=== PATIENT | male | born 1945 | race Caucasian/White ===

== ENCOUNTER 2016-07-22 08:36 | Observation (INO) | payer BC, MEDICARE ==
[2016-07-22] MEDS ORDERED: NITROGLYCERIN OINT 1 INCH/GM PACKET TOPICAL STA (09:05)
--- NOTE | 2016-07-22 09:09 | ED ---
General Adult HPI - General Chief complaint: Chest Pain Stated complaint: leg swollen Time Seen by Provider: 07/22/16 08:40 Source: patient, RN notes reviewed Mode of arrival: wheelchair Limitations: no limitations - History of Present Illness Initial comments: This is a 70-year-old male who presents to the emergency department complaining of chest pressure starting at 4 AM. Patient states the pressure has come and gone multiple times today and currently it is not there. Patient states the pain radiates straight to his back. Patient denies any difficulty breathing but he stated he was nauseous with the pain. Patient denies any shortness of breath. Patient denies any recent fever chills or cough. Patient states he does have high cholesterol but does not have diabetes or high blood pressure. Patient states he has never been a smoker. Patient states he also has had a leg is swollen on the left and his been ongoing for about a week states he had an ultrasound earlier in the week and it was not a DVT however the swelling remains. Patient states he has no history of unilateral swelling like this. Patient denies any injury to the leg. Patient denies any cuts or wounds to light. Patient denies any abdominal pain patient denies vomiting or diarrhea - Related Data Home Medications Medication Instructions Recorded Confirmed Acetaminophen [Tylenol] 325 - 650 mg PO HS PRN 07/22/16 07/22/16 Aspirin EC [Ecotrin Low Dose] 81 mg PO HS 07/22/16 07/22/16 Atorvastatin Calcium [Lipitor] 10 mg PO DAILY 07/22/16 07/22/16 Enalapril Maleate [Vasotec] 2.5 mg PO DAILY 07/22/16 07/22/16 [place]-3 Fatty Acids [[place]-3] 1,000 mg PO BID 07/22/16 07/22/16 Allergies Allergy/AdvReac Type Severity Reaction Status Date / Time Penicillins AdvReac Unknown Verified 07/22/16 10:09 Review of Systems ROS Statement: Those systems with pertinent positive or pertinent negative responses have been documented in the HPI. ROS Other: All systems not noted in ROS Statement are negative. Past Medical History Past Medical History: No Reported History, Hyperlipidemia, Hypertension History of Any Multi-Drug Resistant Organisms: None Reported Past Surgical History: Heart Catheterization With Stent Additional Past Surgical History / Comment(s): cardiac surg Past Psychological History: No Psychological Hx Reported Smoking Status: Former smoker Past Alcohol Use History: None Reported Past Drug Use History: None Reported General Exam - General Exam Comments Initial Comments: GENERAL: Patient is well-developed and well-nourished. Patient is nontoxic and well- hydrated and is in mild distress. ENT: Neck is soft and supple. No significant lymphadenopathy is noted. Oropharynx is clear. Moist mucous membranes. Neck has full range of motion without eliciting any pain. EYES: The sclera were anicteric and conjunctiva were pink and moist. Extraocular movements were intact and pupils were equal round and reactive to light. Eyelids were unremarkable. PULMONARY: Unlabored respirations. Good breath sounds bilaterally. No audible rales rhonchi or wheezing was noted. CARDIOVASCULAR: There is a regular rate and rhythm without any murmurs gallops or rubs. ABDOMEN: Soft and nontender with normal bowel sounds. No palpable organomegaly was noted. There is no palpable pulsatile mass. SKIN: Skin is clear with no lesions or rashes and otherwise unremarkable. NEUROLOGIC: Patient is alert and oriented x3. Cranial nerves II through XII are grossly intact. Motor and sensory are also intact. Normal speech, volume and content. Symmetrical smile. MUSCULOSKELETAL: Normal extremities with adequate strength and full range of motion. The left leg from the knee down to the ankle is swollen and calf is tender. LYMPHATICS: No significant lymphadenopathy is noted PSYCHIATRIC: Normal psychiatric evaluation. Normal interpersonal interactions appears functionally intact in deals appropriately with others. No signs of depression. No signs of anxiety. Limitations: no limitations Course Vital Signs 07/22/16 07/22/16 07/22/16 08:38 09:11 10:16 Temperature 98.1 F Pulse Rate 56 L 52 L 54 L Respiratory 18 18 Rate Blood Pressure 181/87 151/68 125/60 O2 Sat by Pulse 99 98 94 L Oximetry Medical Decision Making - Medical Decision Making EKG shows sinus bradycardia 55 bpm. It was 132 QRS 106 QT interval 434 QTC is 4 :15 per patient's EKG shows no ST segment elevation or depression except there is some Q waves in leads 2 and aVF on the old EKG shows Q waves were there before Chest x-ray shows no acute amount. Ultrasound showed no DVT. Computed tomography scan of the chest showed no pulmonary embolus. Patient has been having intermittent pain along with his age high cholesterol I determined that the patient had unstable angina/started the patient hyper I admitted the patient I spoke with Dr. Alvarado he agreed to accept the admission I consult cardiology I continued the heparin Nitropaste and aspirin on the floor. - Lab Data Result diagrams: 07/22/16 09:03 07/22/16 09:03 Lab Results 07/22/16 07/22/16 07/22/16 Range/Units 09:03 09:03 09:03 WBC 8.7 (3.8-10.6) k/uL RBC 5.26 (4.30-5.90) m/uL Hgb 16.4 (13.0-17.5) gm/dL Hct 47.3 (39.0-53.0) % MCV 89.9 (80.0-100.0) fL MCH 31.3 (25.0-35.0) pg MCHC 34.8 (31.0-37.0) g/dL RDW 13.5 (11.5-15.5) % Plt Count 188 (150-450) k/uL Neutrophils % 65 % Lymphocytes % 25 % Monocytes % 5 % Eosinophils % 2 % Basophils % 1 % Neutrophils # 5.7 (1.3-7.7) k/uL Lymphocytes # 2.1 (1.0-4.8) k/uL Monocytes # 0.5 (0-1.0) k/uL Eosinophils # 0.2 (0-0.7) k/uL Basophils # 0.1 (0-0.2) k/uL PT (9.0-12.0) sec INR (<1.1) APTT (22.0-30.0) sec D-Dimer (<0.60) mg/L FEU Sodium 141 (137-145) mmol/L Potassium 4.0 (3.5-5.1) mmol/L Chloride 104 (98-107) mmol/L Carbon Dioxide 26 (22-30) mmol/L Anion Gap 11 mmol/L BUN 20 (9-20) mg/dL Creatinine 0.75 (0.66-1.25) mg/dL Est GFR (MDRD) Af Amer >60 (>60 ml/min/1.73 sqM) Est GFR (MDRD) Non-Af >60 (>60 ml/min/1.73 sqM) Glucose 115 H (74-99) mg/dL Calcium 9.2 (8.4-10.2) mg/dL Magnesium 2.0 (1.6-2.3) mg/dL Total Bilirubin 0.8 (0.2-1.3) mg/dL AST 26 (17-59) U/L ALT 33 (21-72) U/L Alkaline Phosphatase 93 (38-126) U/L Total Creatine Kinase 88 (55-170) U/L CK-MB (CK-2) 0.8 (0.0-2.4) ng/mL CK-MB (CK-2) Rel Index 0.9 Troponin I <0.012 (0.000-0.034) ng/mL NT-Pro-B Natriuret Pep pg/mL Total Protein 7.5 (6.3-8.2) g/dL Albumin 4.6 (3.5-5.0) g/dL 07/22/16 07/22/16 Range/Units 09:03 09:03 WBC (3.8-10.6) k/uL RBC (4.30-5.90) m/uL Hgb (13.0-17.5) gm/dL Hct (39.0-53.0) % MCV (80.0-100.0) fL MCH (25.0-35.0) pg MCHC (31.0-37.0) g/dL RDW (11.5-15.5) % Plt Count (150-450) k/uL Neutrophils % % Lymphocytes % % Monocytes % % Eosinophils % % Basophils % % Neutrophils # (1.3-7.7) k/uL Lymphocytes # (1.0-4.8) k/uL Monocytes # (0-1.0) k/uL Eosinophils # (0-0.7) k/uL Basophils # (0-0.2) k/uL PT 11.0 (9.0-12.0) sec INR 1.1 (<1.1) APTT 24.1 (22.0-30.0) sec D-Dimer 1.16 H (<0.60) mg/L FEU Sodium (137-145) mmol/L Potassium (3.5-5.1) mmol/L Chloride (98-107) mmol/L Carbon Dioxide (22-30) mmol/L Anion Gap mmol/L BUN (9-20) mg/dL Creatinine (0.66-1.25) mg/dL Est GFR (MDRD) Af Amer (>60 ml/min/1.73 sqM) Est GFR (MDRD) Non-Af (>60 ml/min/1.73 sqM) Glucose (74-99) mg/dL Calcium (8.4-10.2) mg/dL Magnesium (1.6-2.3) mg/dL Total Bilirubin (0.2-1.3) mg/dL AST (17-59) U/L ALT (21-72) U/L Alkaline Phosphatase (38-126) U/L Total Creatine Kinase (55-170) U/L CK-MB (CK-2) (0.0-2.4) ng/mL CK-MB (CK-2) Rel Index Troponin I (0.000-0.034) ng/mL NT-Pro-B Natriuret Pep 31 pg/mL Total Protein (6.3-8.2) g/dL Albumin (3.5-5.0) g/dL Disposition Clinical Impression: Unstable angina pectoris Disposition: ADMITTED IP TO THIS [facility] Time of Disposition: 11:13
[2016-07-22 09:23] LABS: Basophils # (A) 0.1 k/uL (0-0.2); Basophils % (A) 1 %; CH 31.8; CHCM 35.5; Eosinophils # (A) 0.2 k/uL (0-0.7); Eosinophils % (A) 2 %; HCT 47.3 % (39.0-53.0); HDW 3.14; HGB 16.4 gm/dL (13.0-17.5); Luc # (Auto) 0.17; Luc % (Auto) 2; Lymphocytes # (A) 2.1 k/uL (1.0-4.8); Lymphocytes % (A) 25 %; MCH 31.3 pg (25.0-35.0); MCHC 34.8 g/dL (31.0-37.0); MCV 89.9 fL (80.0-100.0); Mean Platelet Volume 7.3; Monocytes # (A) 0.5 k/uL (0-1.0); Monocytes % (A) 5 %; Neutrophils # (A) 5.7 k/uL (1.3-7.7); Neutrophils % (A) 65 %; RBC 5.26 m/uL (4.30-5.90); RDW 13.5 % (11.5-15.5); WBC 8.7 k/uL (3.8-10.6); WBC (Perox) 8.56
--- NOTE | 2016-07-22 09:24 | XR ---
EXAMINATION TYPE: XR chest 2V DATE OF EXAM: 07/22/2016 9:21 AM COMPARISON: 05/23/2013 TECHNIQUE: PA and lateral views submitted. HISTORY: Chest pain FINDINGS: The lungs are clear and there is no pneumothorax, pleural effusion, or focal pneumonia. Postsurgica l change overlying the cervical spine. Hyperinflation suggests COPD. Arthropathy of the shoulders seen. Previous surgery involving the heart noted. Pulmonary arteries are prominent correlate for pulmonary arterial hypertension. IMPRESSION: 1. No acute process.
[2016-07-22 09:34] LABS: ALT 33 U/L (21-72); AST 26 U/L (17-59); Alkaline Phosphatase 93 U/L (38-126); Anion Gap 11 mmol/L; Blood Urea Nitrogen 20 mg/dL (9-20); Calcium 9.2 mg/dL (8.4-10.2); Carbon Dioxide 26 mmol/L (22-30); Chloride 104 mmol/L (98-107); Glucose 115 mg/dL (74-99); Non-African American GFR(MDRD) >60 (>60 ml/min/1.73 sqM); Sodium 141 mmol/L (137-145); Total Bilirubin 0.8 mg/dL (0.2-1.3); Total Protein 7.5 g/dL (6.3-8.2)
[2016-07-22 09:42] LABS: INR 1.1 (<1.1); Partial Thromboplastin Time 24.1 sec (22.0-30.0)
[2016-07-22 09:45] LABS: Creatine Kinase 88 U/L (55-170)
[2016-07-22 09:57] LABS: Creatine Kinase MB 0.8 ng/mL (0.0-2.4); Troponin I <0.012 ng/mL (0.000-0.034)
--- NOTE | 2016-07-22 10:13 | US ---
EXAMINATION TYPE: US venous doppler duplex LE LT DATE OF EXAM: 07/22/2016 9:59 AM COMPARISON: NONE CLINICAL HISTORY: Pain. Pain, edema left lower leg x 2 weeks. Left knee replacement 2015 SIDE PERFORMED: Left VESSELS IMAGED: External Iliac Vein (EIV) Common Femoral Vein Deep Femoral Vein Greater Saphenous Vein * Femoral Vein Popliteal Vein Small Saphenous Vein * Proximal Calf Veins (* superficial vessels) Findings: NO evidence of DVT. Complex area left popliteal fossa = 4.8 x 1.6 x 2.8cm, possible Denise's cyst. Anechoic area left medial upper calf = 4.1 x 1.8 x 2.0cm, complex area superior to anechoic a tiana = 4.1 x 1.7 x 2.7cm IMPRESSION: 1. No evidence of DVT 2. Complex area popliteal fossa measuring 4.8 cm is not compatible with simple cyst. Recommend follow -up MRI. 3. Additional simple appearing popliteal fossa cyst measuring 4.1 cm.
[2016-07-22] MEDS ORDERED: RX INFO: IV CONTRAST WAS GIVEN 1 EACH MISC MISCELLANE PRN (10:17)
--- NOTE | 2016-07-22 10:52 | CT ---
EXAMINATION TYPE: CT chest angio for PE DATE OF EXAM: 07/22/2016 10:45 AM COMPARISON: NONE HISTORY: Lt leg red and swollen CT DLP: 582 mGycm CONTRAST: CT chest with contrast and 3D reconstruction with MIP imaging is performed with IV Contrast, patient injected with 84 mL of Omnipaque 350. Contrast-enhanced CT of the chest was performed through the course of the pulmonary arteries with angelita g and mediastinal window settings submitted. 3D reconstruction with MIP imaging was also performed. PULMONARY ARTERIES: The pulmonary arteries and their major tributaries are patent. I do not see lc dence for sizable filling defect to suggest pulmonary embolic process. LUNGS: The lungs are clear and free of infiltrate. Mild dependent basilar atelectasis. No pulmonary n odule or mass is detected. No pleural effusion. MEDIASTINUM: Thoracic aorta is of normal caliber . The heart is mildly enlarged. No evidence for me diastinal mass. No mediastinal lymph nodes greater than 1cm. HILAR STRUCTURES: No evidence for mass. No hilar lymph nodes greater than 1 cm. UPPER ABDOMEN: No significant abnormality is seen. IMPRESSION: 1. No evidence for Pulmonary embolism at this time.
[2016-07-22] MEDS ORDERED: NITROGLYCERIN SL TABS 0.4 MG TAB SUBLINGUAL PRN (11:13)
[2016-07-22] MEDS ORDERED: HEPARIN SODIUM,PORCINE 5,000 UNIT/ML 1 ML VIAL IV ONE (11:13)
[2016-07-22] MEDS ORDERED: SODIUM CHLORIDE 0.9% 1,000 ML IV SCH (11:45)
[2016-07-22] MEDS: HEPARIN SODIUM,PORCINE/D5W PMX 25,000 UNIT in DEXTROSE/WATER 1 500ML.BAG IV SCH ×2 (11:48→18:19)
[2016-07-22] MEDS ORDERED: NITROGLYCERIN OINT 1 INCH/GM PACKET TOPICAL SCH (13:00)
[2016-07-22 15:50] LABS: Creatine Kinase 61 U/L (55-170)
[2016-07-22 16:03] LABS: Creatine Kinase MB 0.5 ng/mL (0.0-2.4); Troponin I <0.012 ng/mL (0.000-0.034)
--- NOTE | 2016-07-22 16:10 | P.HPIM ---
History of Present Illness H&P Date: 07/22/16 Chief Complaint: Tightness in the chest 70-year-old gentleman with history of CAD status post PCI by Dr. TITUS Small in 2005 comes in to the hospital with an episode this a.m. where the patient felt like he was generally weak and noted some tightness in his chest episode lasted a few minutes however it was concerning with the tightness was in the midsternal region no radiation was reported. Patient's other main issue has been tenderness in his lower extremity on the left side for the last 2 weeks. Initially started to note a cyst on the back of his knee thereafter has severe pain in the lower extremity patient had a DVT study which was negative. Thereafter the pain improved however there is some swelling in that region. Patient was evaluated in the ER a CT angiogram was done to rule out a pulmonary embolism which was negative and another DVT study of the left lower extremity was done which was also negative. However a complex cyst was reported and further imaging study was recommended. Currently denies having any chest pain, difficulty breathing, nausea, vomiting, diarrhea, urinary urgency or frequency at this time. EKG was evaluated there is some T-wave inversions. Patient stated that he had echocardiogram and a stress test that was done in October 2015 which was negative. Review of Systems All systems: negative (Noted in HPI) Past Medical History Past Medical History: Coronary Artery Disease (CAD), Chest Pain / Angina, Hyperlipidemia, Osteoarthritis (OA) Additional Past Medical History / Comment(s): Ischemic heart disease, stress test 10/2015 which pt states was normal, pt denies HTN-states he is on vasotec/ metoprolol due to CAD and started on them after stenting, L cataract, DJD. History of Any Multi-Drug Resistant Organisms: None Reported Past Surgical History: Heart Catheterization With Stent, Hernia Repair, Joint Replacement Additional Past Surgical History / Comment(s): PCI with stenting in 2008, ASD closure done at [facility], bilateral total knees, CRISSY, umbilical and bilateral inguinal hernia repairs, colonoscopy with benign polypectomy, R cataract removed. Past Anesthesia/Blood Transfusion Reactions: No Reported Reaction, Motion Sickness Additional Past Anesthesia/Blood Transfusion Reaction / Comment(s): Pt has motion sickness only on a boat which isn't moving. Date of Last Stent Placement:: 2008 Past Psychological History: No Psychological Hx Reported Additional Psychological History / Comment(s): Pt resides with his spouse. He is independent. Smoking Status: Former smoker Past Alcohol Use History: None Reported Additional Past Alcohol Use History / Comment(s): Pt started smoking in 1965 and quit in 1975. Past Drug Use History: None Reported - Past Family History Father Family Medical History: No Reported History Additional Family Medical History / Comment(s): Father at the age of 79yrs of "natural causes." Mother Family Medical History: Cancer Additional Family Medical History / Comment(s): Mother of ovarian cancer at the age of 43yrs. Medications and Allergies Home Medications Medication Instructions Recorded Confirmed Type Acetaminophen [Tylenol] 325 - 650 mg PO HS PRN 07/22/16 07/22/16 History Aspirin EC [Ecotrin Low Dose] 81 mg PO HS 07/22/16 07/22/16 History Atorvastatin Calcium [Lipitor] 10 mg PO DAILY 07/22/16 07/22/16 History Enalapril Maleate [Vasotec] 2.5 mg PO DAILY 07/22/16 07/22/16 History Metoprolol Tartrate [Lopressor] 25 mg PO BID 07/22/16 07/22/16 History [place]-3 Fatty Acids [[place]-3] 1,000 mg PO BID 07/22/16 07/22/16 History Allergies Allergy/AdvReac Type Severity Reaction Status Date / Time Penicillins AdvReac Unknown Verified 07/22/16 10:09 Physical Exam Vitals: Vital Signs Temp Pulse Pulse Resp BP BP Pulse Ox 07/22/16 12:00 98.4 F 56 L 16 122/57 96 07/22/16 11:46 98 F 49 L 16 115/54 97 Intake and Output 07/22/16 07/22/16 07/22/16 06:59 14:59 22:59 Intake Total 118 Balance 118 Intake: Oral 118 Physical exam Gen. appearance oriented 3 in no distress Neck is supple no JVD Lungs good air entry clear to auscultation no rhonchi or wheezing Heart S1-S2 heard regular rate and rhythm no murmurs appreciated Abdomen is soft nontender no organomegaly bowel sounds are intact Neurologically cranial nerves II-12 grossly intact no focal motor or sensory deficits noted Skin no abnormalities appreciated Left lower extremity there is 1+ pitting edema below the knee there is a cyst that is noted in the popliteal fossa however there is also edema in the Gastronemius muscle area. Results CBC & Chem 7: 07/22/16 09:03 07/22/16 09:03 Thrombosis Risk Factor Assmnt - Choose All That Apply Any of the Below Risk Factors Present?: Yes Each Factor Represents 1 point: Obesity (BMI >25) Other Risk Factors: Yes Each Risk Factor Represents 2 Points: Age 61-74 years Other congenital or acquired thrombophilia - If yes, enter type in comment: No Thrombosis Risk Factor Assessment Total Risk Factor Score: 3 Thrombosis Risk Factor Assessment Level: Moderate Risk Assessment and Plan Plan: #1 atypical chest pain in a patient with CAD rule out ACS #2 history of hypertension. #3 osteoarthritis status post bilateral knee replacements #4 ruptured Denise's cyst on the left side Plan We'll obtain a computed tomography scan of the left lower extremity without contrast to rule out the anechoic finding noted on ultrasound, likely a ruptured Denise's cyst. Patient is not a candidate for MRI Serial troponins. Rule out ACS Cardiology consultation. FRANCIS inhibitor and beta joy was started. Patient is on aspirin.
--- NOTE | 2016-07-22 16:51 | CT ---
EXAMINATION TYPE: CT lower extremity LT wo con DATE OF EXAM: 07/22/2016 4:45 PM COMPARISON: Ultrasound dated 07/22/2016 HISTORY: Left sided knee and calf pain CT DLP: 470.1 mGycm Automated exposure control for dose reduction was used. Unenhanced CT of the left knee was performed. FINDINGS: There is total knee arthroplasty resulting in neck stents of streak artifact limiting evaluation. I d o not see evidence for fracture at this time. Medial cystic structure is noted measuring approximatel y 5.4 x 2.2 cm with the increased attenuation at its dependent portion which may reflect internal com plex fluid or hemorrhagic component. Popliteal fossa cyst described on the ultrasound is not visualiz ed given extensive streak artifact. IMPRESSION: Medial cystic structure is noted measuring approximately 5.4 x 2.2 cm with the increased attenuation at its dependent portion which may reflect internal complex fluid or hemorrhagic component.
[2016-07-22] MEDS: METOPROLOL TARTRATE 25 MG TAB PO SCH (20:26)
--- NOTE | 2016-07-22 20:45 | CONS ---
DATE OF CONSULTATION: Mr. Baldwin is a 70-year-old male with a history of coronary artery disease, status post stenting of the LAD [place] [address] Basilio Small. He underwent repeat cardiac catheterization in 2013 that revealed no evidence of significant obstructive disease. He has prior closure of his ASD. Over the last 2 weeks he has had edema in the left lower extremity that is not getting better. It is not associated with any dyspnea. Today he got anxious about it, had some tightness in the chest and came into the emergency room. Up to the time he had the problem, he had been walking on the treadmill on a daily basis without any difficulty. He denies any dizziness or palpitation. He denies any PND, orthopnea. No syncope. His coronary risk factors are negative for smoking. He is hypertensive and hyperlipidemic. His medications include: 1. Metoprolol tartrate 25 mg twice a day. 2. Aspirin. 3. Enalapril 2.5 mg daily. 4. Lipitor 10 mg daily. REVIEW OF SYSTEMS: RESPIRATORY SYSTEM: He has mild dyspnea on exertion. No wheezing. No cough. GI SYSTEM: No recent GI bleeding. No peptic ulcer disease. SYSTEM: No dysuria or hematuria. NERVOUS SYSTEM: No stroke or seizure. He denies any injury to the left leg. He was diagnosed with Denise's cyst. PHYSICAL EXAMINATION: He is a 70-year-old male, alert, oriented, in no apparent distress. Blood pressure 122/50 with a heart rate in the 50s. Afebrile. HEAD: Normocephalic. EYES: Sclerae anicteric. NECK: Good carotid upstroke. No bruit. No jugular venous distention. LUNGS: Clear to auscultation. HEART: Regular rate and rhythm. S1, S2. No S3. No rub. With a systolic murmur. ABDOMEN: Soft, nontender. EXTREMITIES: With mild erythema on the left lower extremity and +1 edema. No edema on the right side. Lab data revealed troponin less than 0.012. NT-proBNP of 31. BUN and creatinine of 20 and 0.75. D-dimer of 1.16. Hemoglobin 16.4, white blood cells 8.7. EKG revealed a sinus mechanism, normal axis; cannot exclude inferior myocardial infarction with Q waves in lead III. Duplex scan of the lower extremities revealed no evidence of DVT, with evidence of popliteal fossa with a simple cyst. CT angiogram of the chest showed no evidence of pulmonary embolism. Chest x-ray shows no acute infiltrate. IMPRESSION: 1. Symptoms of left lower extremity edema; could be cellulitis or related to the popliteal cyst. 2. History of coronary artery disease, stable. 3. Chest discomfort, atypical for ischemic heart disease. RECOMMENDATION: Patient has undergone full cardiac workup recently, according to him. I will obtain the records from the office. He has been seen by Dr. Basilio Small. If his enzymes are negative, his heparin will be stopped. He may require antibiotic treatment or further evaluation by Orthopedics Service regarding his popliteal cyst. I will defer to the primary care physician in that regard. Thank you for this consult. Will follow with you.
[2016-07-22] MEDS ORDERED: NON-FORMULARY DRUG (Omega-3 Fatty Acids [Omega-3] 1,000 MG) PO SCH (21:00)
[2016-07-22] MEDS ORDERED: ASPIRIN 81 MG CHEW PO SCH (21:00)
[2016-07-22 21:31] LABS: Creatine Kinase 61 U/L (55-170)
[2016-07-22 21:40] LABS: Creatine Kinase MB 0.5 ng/mL (0.0-2.4); Troponin I <0.012 ng/mL (0.000-0.034)
[2016-07-23 02:41] LABS: Cholesterol 161 mg/dL (<200); HDL Cholesterol 35 mg/dL (40-60); Triglycerides 224 mg/dL (<150)
[2016-07-23] MEDS: METOPROLOL TARTRATE 25 MG TAB PO SCH (08:30)
--- NOTE | 2016-07-23 08:54 | PN ---
Mr. Baldwin is a 70-year-old male who presented with left leg edema and discomfort. He was diagnosed with possible ruptured Denise's cyst. He is feeling well today. He has no chest pain. His edema is better. He denies any dizziness or palpitation. He denies any nausea. He continues to be on Lipitor 10 mg daily, aspirin once a day, lisinopril 5 mg daily, metoprolol tartrate 25 mg twice a day. PHYSICAL EXAMINATION: Blood pressure 146/60 with the heart rate in the 50s. LUNGS: Clear. HEART: Regular rate and rhythm. S1 and S2, no S3, no rub. ABDOMEN: Soft, nontender. EXTREMITIES: With decreased edema on the left side with mild erythema and warmness. Lab data revealed troponin less than 0.012 for 3 samples. IMPRESSION: 1. Probable ruptured Bakers cyst on the left side. 2. History of coronary artery disease. 3. Hyperlipidemia. 4. Hypertension. RECOMMENDATIONS: From the cardiac standpoint, he is stable, no further cardiac workup will be needed.
[2016-07-23] MEDS ORDERED: ATORVASTATIN 10 MG TAB PO SCH (09:00)
[2016-07-23] MEDS ORDERED: ASPIRIN 325 MG TAB PO SCH (09:00)
[2016-07-23] MEDS ORDERED: LISINOPRIL 5 MG TAB PO SCH (09:00)
[2016-07-23 11:14] VITALS: BP 149/71; TEMP 97.7
[2016-07-23 11:50] VITALS: PULSE 62; RESP 18
--- NOTE | 2016-07-23 15:14 | P.DS ---
Providers Date of admission: 07/22/16 11:13 Attending physician: Prabhakar Alvarado Primary care physician: Fabaina [facility] Course: 70-year-old gentleman with history of CAD status post PCI by Dr. TITUS Small in 2005 comes in to the hospital with an episode this a.m. where the patient felt like he was generally weak and noted some tightness in his chest episode lasted a few minutes however it was concerning with the tightness was in the midsternal region no radiation was reported. Patient's other main issue has been tenderness in his lower extremity on the left side for the last 2 weeks. Initially started to note a cyst on the back of his knee thereafter has severe pain in the lower extremity patient had a DVT study which was negative. Thereafter the pain improved however there is some swelling in that region. Patient was evaluated in the ER a CT angiogram was done to rule out a pulmonary embolism which was negative and another DVT study of the left lower extremity was done which was also negative. However a complex cyst was reported and further imaging study was recommended. Currently denies having any chest pain, difficulty breathing, nausea, vomiting, diarrhea, urinary urgency or frequency at this time. EKG was evaluated there is some T-wave inversions. Patient stated that he had echocardiogram and a stress test that was done in October 2015 which was negative. 07/23/2016 At the time of discharge patient denied having any chest pain. He does state to have some discomfort in his left lower extremity however ultrasound 2 was negative for DVT. I did obtain a computed tomography scan of the left lower extremity to evaluate a complex fluid collection. Appears to be old blood patient does not have any systemic signs of an infection. Hence patient is recommended to ambulate normally without any activity restrictions. It'll likely is a ruptured cyst with fluid tracking down his posterior compartment of his lower extremity Physical exam Gen. appearance oriented 3 in no distress Neck is supple no JVD Lungs good air entry clear to auscultation no rhonchi or wheezing Heart S1-S2 heard regular rate and rhythm no murmurs appreciated Abdomen is soft nontender no organomegaly bowel sounds are intact Neurologically cranial nerves II-12 grossly intact no focal motor or sensory deficits noted Skin no abnormalities appreciated Left lower extremity there is 1+ pitting edema below the knee there is a cyst that is noted in the popliteal fossa however there is also edema in the Gastronemius muscle area. Assessment and Plan Plan: #1 atypical chest pain in a patient with CAD rule out ACS #2 history of hypertension. #3 osteoarthritis status post bilateral knee replacements #4 ruptured Denise's cyst on the left side Cardiology has evaluated the patient underwent a stress test which was negative is discharged home. Patient is encouraged to ambulate no activity restrictions patient is to continue physical therapy. . Patient Condition at Discharge: Fair Plan - Discharge Summary Discharge Medication List Acetaminophen [Tylenol] 325 - 650 mg PO HS PRN 07/22/16 [History] Aspirin EC [Ecotrin Low Dose] 81 mg PO HS 07/22/16 [History] Atorvastatin Calcium [Lipitor] 10 mg PO DAILY 07/22/16 [History] Enalapril Maleate [Vasotec] 2.5 mg PO DAILY 07/22/16 [History] Metoprolol Tartrate [Lopressor] 25 mg PO BID 07/22/16 [History] [place]-3 Fatty Acids [[place]-3] 1,000 mg PO BID 07/22/16 [History] Follow up Appointment(s)/Referral(s): Fabiana Arora MD [Primary Care Provider] - 1-2 days Activity/Diet/Wound Care/Special Instructions: No restrictions Discharge Disposition: HOME SELF-CARE
== END 2016-07-23 15:34 | disposition home or self-care (01) ==
LOC: EC 08:36 → 3OBS 11:13
PROVIDERS: ADMIT Internal Medicine; ATTEND Internal Medicine
DX: R07.89 Other chest pain (principal); I25.10 Atherosclerotic heart disease of native coronary artery without angina pectoris; M19.90 Unspecified osteoarthritis, unspecified site; I10 Essential (primary) hypertension; Z96.653 Presence of artificial knee joint, bilateral; M66.0 Rupture of popliteal cyst; E78.00 Pure hypercholesterolemia, unspecified; E78.5 Hyperlipidemia, unspecified; Z79.82 Long term (current) use of aspirin; Z87.74 Personal history of (corrected) congenital malformations of heart and circulatory system; Z87.891 Personal history of nicotine dependence; Z95.5 Presence of coronary angioplasty implant and graft; R11.0 Nausea; Z79.899 Other long term (current) drug therapy; Z88.0 Allergy status to penicillin; M79.89 Other specified soft tissue disorders
CPT/HCPCS: 36415; 93005; 85379; 83880; 80061; 80053; 82550; 82553; 83735; 84484; 85025; 85610; 85730; 71020; 93971; 73700; 71275; 99285; 96376; G0378 ×2; J1644 ×2; Q9967; 96366

== ENCOUNTER → 2016-09-10 | Outpatient (CLI) | payer BC | END | disposition home or self-care (01) | LOC: RADECHMAIN 12:31 | PROVIDERS: ATTEND Family Medicine | DX: I47.1 Supraventricular tachycardia (principal); I49.3 Ventricular premature depolarization | CPT/HCPCS: 93270; 93271 ==

== ENCOUNTER → 2017-08-10 | Outpatient (CLI) | payer BC ==
--- NOTE | 2017-08-10 17:26 | MR ---
EXAMINATION TYPE: MR cervical spine wo/w con DATE OF EXAM: 08/10/2017 COMPARISON: 08/01/2012 preop cervical MRI HISTORY: Neck Pain Arthrodesis Status, Cervical disc disorder TECHNIQUE: Multiplanar, multisequence images of the cervical spine were acquired utilizing 9.5 mL intravenous Ga davist gadolinium contrast. Diffusion weighted imaging was performed. C2-C3: No evidence for degenerative disc disease. No disc bulge/herniation or protrusion. No Canal stenosis. Foramina are patent bilaterally. C3-C4: Facet arthropathy changes are present encroaching on the left neural foramen. Broad-based post erior disc bulge contacts anterior thecal sac, no significant central stenosis. C4-C5: Posterior extension of endplates causes anterior mass effect on the thecal sac and contact wit h the right side of the cervical cord. There is mild to moderate central stenosis. Right-sided forami nal encroachment is present due to lateral extension of endplates. C5-C6: Posterior extension of osteophyte disc complex causes anterior mass effect on the thecal sac a nd extends towards the right causing some foraminal encroachment. No significant central stenosis. C6-C7: Posterior extension of endplate disc complex contacts anterior thecal sac, there is lateral ex tension of endplate disc complex causing bilateral foraminal encroachment, on mild central stenosis. C7-T1: No evidence for degenerative disc disease. No disc bulge/herniation or protrusion. No Canal stenosis. Foramina are patent bilaterally. Patient is status post anterior cervical fusion and discectomy at C4-C6, there is metallic susceptibi lity artifact at these levels. Cervical spinal cord is showing some increased signal in T2-weighted s equences, intermediate signal on T1 at the surgical site levels on sagittal image 7 but not well seen with certainty on axial images. Loss of disc height and signal is present at the C3-4, C6-7 levels, there is associated spondylosis and endplate discogenic marrow signal change. Craniovertebral juncti on relationships are within normal limits. No abnormal enhancement following contrast administration . IMPRESSION: Degenerative disc disease, postop changes, multilevel foraminal encroachment and spinal stenosis as d escribed. Cord signal changes may be artifactual as described.
== END | disposition home or self-care (01) ==
LOC: RADMRIMAIN 09:47
PROVIDERS: ATTEND Physical Medicine & Rehabilitation
DX: M48.02 Spinal stenosis, cervical region (principal); M50.10 Cervical disc disorder with radiculopathy, unspecified cervical region; Z98.1 Arthrodesis status
CPT/HCPCS: 72156; A9581

== ENCOUNTER → 2018-06-10 | Day surgery (SDC) | payer BC ==
[2018-06-08 15:31] VITALS: BMI 38.0
[~2018-06-10] MED LIST: LACTATED RINGERS 1,000 ML IV ONE; LACTATED RINGERS 1,000 ML IV SCH; LIDOCAINE 1% 20 ML VIAL (10MG/ML) FOR IV START INTRADERMA ONE; PROPOFOL 10 MG/ML 20 ML VIAL IV ONE
[2018-06-10 11:08] VITALS: TEMP 97.5
--- NOTE | 2018-06-10 11:53 | P.PCN ---
Date of Procedure: 06/10/18 Procedure(s) Performed: BRIEF HISTORY: Patient is a 72-year-old pleasant white male, scheduled for an elective colonoscopy as a part of value should of Hemoccult positive stool. PROCEDURE PERFORMED: Colonoscopy with snare polypectomy. PREOPERATIVE DIAGNOSIS: Blood in the stool. IV sedation per Anesthesia. PROCEDURE: After informed consent was obtained, the patient, was brought into the endoscopy unit. IV sedation was administered by Anesthesia under continuous monitoring. Mild perianal erythema noted. Digital rectal examination was normal. Initially the Olympus CF-160 flexible video colonoscope was then inserted in the rectum, gradually advanced into the cecum without any difficulty. Careful examination was performed as the scope was gradually being withdrawn. Ileocecal valve and the appendiceal orifice were visualized and appeared normal. Prep was excellent. Mucosa of the cecum, appeared normal. In the ascending colon there were 2 polyps measuring 2 mm and 5 mm both of which were removed by snare polypectomy. In the hepatic flexure there was a 5 mm and 7 mm sessile polyp removed by snare polypectomy. In the proximal transverse colon there was a 5 mm sessile polyp removed by snare polypectomy. Rest of the ascending colon, transverse colon, descending colon, sigmoid colon, and rectum appeared normal. Retroflexion was performed in the rectum and small internal hemorrhoids were seen. The patient tolerated the procedure well. IMPRESSION: 2 mm and 5 mm sessile ascending colon polyp status post polypectomy 5 mm and 7 mm hepatic flexure polyp status post polypectomy 5 mm transverse colon polyp status post polypectomy Small internal hemorrhoids. Mild perianal erythema. RECOMMENDATIONS: Findings of this examination were discussed with the patient less his family. He was advised to follow with the biopsy results. If the biopsy shows adenomatous polyp, he can have a repeat colonoscopy in 3 years.
[2018-06-10 11:56] VITALS: RESP 16
[2018-06-10 12:02] VITALS: BP 109/63; PULSE 57
== END ==
LOC: ORWHC2ENDO 10:49
PROVIDERS: ATTEND Internal Medicine Gastroenterology
DX: K64.8 Other hemorrhoids (principal); D12.2 Benign neoplasm of ascending colon; D12.3 Benign neoplasm of transverse colon; I25.10 Atherosclerotic heart disease of native coronary artery without angina pectoris; Z87.891 Personal history of nicotine dependence; E78.5 Hyperlipidemia, unspecified; Z79.82 Long term (current) use of aspirin; Z95.5 Presence of coronary angioplasty implant and graft; Z79.899 Other long term (current) drug therapy; Z88.0 Allergy status to penicillin
CPT/HCPCS: 88305; 45385; J2704

== ENCOUNTER 2019-07-08 02:24 | Inpatient (IN) | payer BC, MEDICARE ==
[2019-07-08] MEDS ORDERED: SODIUM CHLORIDE 0.9% 500 ML 500 ML IV STA (02:52)
--- NOTE | 2019-07-08 02:53 | ED ---
Chest Pain HPI - General Source: patient, family, RN notes reviewed Mode of arrival: wheelchair Limitations: no limitations <Jamal Serna P - Last Filed: 07/08/19 02:56> - General Source: patient, family Mode of arrival: wheelchair Limitations: no limitations <Seble Rudolph P - Last Filed: 07/08/19 04:39> - General Chief Complaint: Chest Pain Stated Complaint: High Blood Pressure, Chest Tightness Time Seen by Provider: 07/08/19 02:52 - History of Present Illness Initial Comments: 73-year-old male with a past medical history of CAD with stent placement in 2004, hyperlipidemia, osteoarthritis, ASD closure presents to the emergency department for a chief complaint of "pounding in his chest." Patient states that about 2 hours prior to arrival he felt a pounding in his chest that he could feel in his teeth. States that he was waiting for it to go away at home but it did not improve. Patient states he then decided to come to the emergency department. He denies chest pain or shortness of breath. States he otherwise feels normal. Patient is not on anticoagulation. Patient does see Dr. TITUS Small for history of stent/CAD. Patient has no other complaints at this time including shortness of breath, chest pain, abdominal pain, nausea or vomiting, headache, or visual changes. (Jamal Serna) - Related Data Home Medications Medication Instructions Recorded Confirmed Acetaminophen [Tylenol] 325 - 650 mg PO HS PRN 07/22/16 06/08/18 Aspirin EC [Ecotrin Low Dose] 81 mg PO HS 07/22/16 06/08/18 Atorvastatin Calcium [Lipitor] 10 mg PO HS 07/22/16 06/08/18 [place]-3 Fatty Acids [[place]-3] 1,000 mg PO BID 07/22/16 06/08/18 Multivitamins, Thera [Multivitamin 1 tab PO DAILY 06/08/18 06/08/18 (formulary)] Allergies Allergy/AdvReac Type Severity Reaction Status Date / Time Penicillins AdvReac Unknown Verified 07/08/19 02:31 Review of Systems ROS Other: All systems not noted in ROS Statement are negative. <Jamal Serna P - Last Filed: 07/08/19 02:56> ROS Other: All systems not noted in ROS Statement are negative. <Seble Rudolph P - Last Filed: 07/08/19 04:39> ROS Statement: Those systems with pertinent positive or pertinent negative responses have been documented in the HPI. EKG Findings - EKG Comments: EKG Findings:: Initial EKG was obtained due to tachycardia, EKG obtained at 2:40 AM, rate is 140 rhythm is a narrow complex irregularly irregular rhythm consistent with atrial fibrillation with RVR. Has mild ST depressions in the lateral leads no acute ST elevations concerning for ischemia without evidence of acute infarction. Repeat EKG was obtained due to rhythm change, repeat EKG obtained at 3:10 AM, rate is 85 rhythm is narrow complex irregular rhythm with P waves before each QRS consistent with sinus rhythm with sinus arrhythmia. Normal axis, normal intervals, ME 144, QRS 106, QTC is [address] elevations or depressions there is no evidence of acute ischemia or infarction. Repeat EKG was obtained obtained due to change in rhythm, repeat EKG obtained at 3:15 AM, rate is 140 narrow complex regular rhythm appears to be atrial flutter with possible 2-1 block versus very irregular A. fib, QRS 98 QTC 540, no acute ST elevations or depressions no evidence of acute ischemia or infarction. Repeat EKG was obtained again secondary to change in rhythm, repeat EKG obtained at 3:16 AM, radiating 9 rhythm sinus with sinus arrhythmia, ME 142, QRS 102, QTc [address] elevations or depressions or evidence of acute ischemia or infarction. <Seble Rudolph P - Last Filed: 07/08/19 04:39> Past Medical History Past Medical History: Coronary Artery Disease (CAD), Hyperlipidemia, Osteoar thritis (OA) Additional Past Medical History / Comment(s): denies heart diseease, hx hypertension but pt states none now, "internal hemorrhoid" History of Any Multi-Drug Resistant Organisms: None Reported Past Surgical History: Heart Catheterization With Stent, Hernia Repair, Joint Replacement Additional Past Surgical History / Comment(s): ASD closure done at [facility], bilateral knee replacement, CRISSY, umbilical inguinal hernia repairs, esperanza cataracts removed. "plate put in my neck"(states no limitation in neck movement), Past Anesthesia/Blood Transfusion Reactions: Motion Sickness Additional Past Anesthesia/Blood Transfusion Reaction / Comment(s): Pt has motion sickness only on a boat which isn't moving. Date of Last Stent Placement:: 2008 Past Psychological History: No Psychological Hx Reported Smoking Status: Former smoker - Past Family History Mother Family Medical History: Cancer Additional Family Medical History / Comment(s): Mother of ovarian cancer at the age of 43yrs. <Seble Rudolph - Last Filed: 07/08/19 04:39> General Exam General appearance: alert, in no apparent distress Head exam: Present: atraumatic, normocephalic, normal inspection Eye exam: Present: normal appearance, PERRL, EOMI. Absent: scleral icterus, conjunctival injection, periorbital swelling ENT exam: Present: normal exam, mucous membranes moist Neck exam: Present: normal inspection, full ROM. Absent: tenderness, meningismus, lymphadenopathy Respiratory exam: Present: normal lung sounds bilaterally. Absent: respiratory distress, wheezes, rales, rhonchi, stridor Cardiovascular Exam: Present: tachycardia, irregular rhythm GI/Abdominal exam: Present: soft, normal bowel sounds. 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 HPI was obtained the patient was evaluated. He was found to be in atrial fibrillation with a ventricular rate in the 140s. Patient does not have a history of atrial fibrillation and is not anticoagulated. At this time care was handed over to Dr. Rudolph who put in orders for patient. (Jamal Serna) Labs ordered, Cardizem and heparin were ordered due to new onset A. fib with RVR however prior to medications being administered patient spontaneously converted back to sinus rhythm. After conversion back to sinus rhythm patient did have a brief episode of A. fib again however again converted spontaneously back to sinus rhythm. Patient remained in sinus rhythm for the next hour and a half, labs resulted with no acute abnormalities troponin I elevated electrolytes within normal limits. At this time patient will be admitted for further evaluation by cardiology. (Seble Rudolph) Disposition <Jamal Serna P - Last Filed: 07/08/19 02:56> Is patient prescribed a controlled substance at d/c from ED?: No <Seble Rudolph - Last Filed: 07/08/19 04:39> Clinical Impression: Atrial fibrillation with RVR Disposition: ADMITTED IP TO THIS HOSP Condition: Stable Referrals: Fabiana Arora MD [Primary Care Provider] - 1-2 days
[2019-07-08] MEDS ORDERED: DILTIAZEM DRIP BOLUS FROM BAG 1 MG SOLN IV ONE (02:59)
[2019-07-08] MEDS ORDERED: HEPARIN SODIUM,PORCINE 5,000 UNIT/ML 1 ML VIAL IV PRN (02:59)
[2019-07-08] MEDS ORDERED: HEPARIN SODIUM,PORCINE 5,000 UNIT/ML 1 ML VIAL IV ONE (02:59)
[2019-07-08] MEDS ORDERED: DILTIAZEM 125 MG in SODIUM CHLORIDE 0.9% 100 ML IV SCH (03:00)
[2019-07-08] MEDS: ASPIRIN 81 MG PO STA ×2 (03:00→03:02)
[2019-07-08] MEDS ORDERED: HEPARIN SOD,PORK IN 0.45% NACL 25,000 UNIT in 0.45% NACL 1 250ML.BAG IV SCH (03:00)
--- NOTE | 2019-07-08 03:03 | XR ---
EXAMINATION TYPE: XR chest 2V DATE OF EXAM: 07/08/2019 COMPARISON: 07/22/2016 HISTORY: Leg swelling TECHNIQUE: 2 views FINDINGS: Heart and mediastinum are normal. Lungs are clear. Diaphragm is normal. Bony thorax appears normal. IMPRESSION: Normal chest. No change.
[2019-07-08 03:14] LABS: Basophils # (A) 0.1 k/uL (0-0.2); Basophils % (A) 1 %; Eosinophils # (A) 0.2 k/uL (0-0.7); Eosinophils % (A) 2 %; HCT 46.2 % (39.0-53.0); HGB 15.7 gm/dL (13.0-17.5); Lymphocytes # (A) 2.5 k/uL (1.0-4.8); Lymphocytes % (A) 25 %; MCH 30.9 pg (25.0-35.0); MCHC 33.9 g/dL (31.0-37.0); Mean Platelet Volume 7.4; Monocytes # (A) 0.6 k/uL (0-1.0); Monocytes % (A) 6 %; Neutrophils # (A) 6.3 k/uL (1.3-7.7); Neutrophils % (A) 64 %; Platelet Count 208 k/uL (150-450); RBC 5.08 m/uL (4.30-5.90); WBC 9.9 k/uL (3.8-10.6)
[2019-07-08 03:24] LABS: INR 0.9 (<1.2)
[2019-07-08 03:24] LABS: ALT 22 U/L (4-49); AST 26 U/L (17-59); African American GFR (CKD) >90 (>60 ml/min/1.73 sqM); Albumin 4.3 g/dL (3.5-5.0); Alkaline Phosphatase 99 U/L (38-126); Anion Gap 9 mmol/L; Blood Urea Nitrogen 22 mg/dL (9-20); Calcium 9.4 mg/dL (8.4-10.2); Carbon Dioxide 25 mmol/L (22-30); Chloride 106 mmol/L (98-107); Glucose 125 mg/dL (74-99); Magnesium 2.2 mg/dL (1.6-2.3); Non-African American GFR(CKD) >90 (>60 ml/min/1.73 sqM); Potassium 4.1 mmol/L (3.5-5.1); Sodium 140 mmol/L (137-145); Total Bilirubin 0.6 mg/dL (0.2-1.3)
[2019-07-08 03:25] LABS: Partial Thromboplastin Time 22.1 sec (22.0-30.0); Prothrombin Time 9.8 sec (9.0-12.0)
[2019-07-08] MEDS ORDERED: NITROGLYCERIN SL TABS 0.4 MG TAB SUBLINGUAL PRN (03:51)
[2019-07-08 05:15] VITALS: RESP 16
[2019-07-08 08:26] VITALS: TEMP 97.8
[2019-07-08] MEDS ORDERED: APIXABAN 5 MG TAB PO SCH (09:15)
[2019-07-08] MEDS ORDERED: METOPROLOL TARTRATE 12.5 MG TAB PO SCH (10:15)
[2019-07-08] MEDS ORDERED: METOPROLOL TARTRATE 25 MG TAB PO SCH (10:15)
--- NOTE | 2019-07-08 12:54 | P.CRDCN ---
History of Present Illness History of present illness: HISTORY OF PRESENTING ILLNESS This is a pleasant 73-year-old male past medical history significant for coronary artery disease status post PCI, dyslipidemia, ASD status post closure. He follows in the office with Dr. Small. We have been asked to see in consultation for atrial fibrillation. He was sitting on the couch watching television yesterday when he felt his heart started beating rapidly. She felt a tightness in his chest at that time. On arrival to emergency department he was found to be in atrial fibrillation with rapid ventricular response. Prior to initiation of Cardizem he converted spontaneously to sinus mechanism. Upon conversion the palpitations and chest tightness subsided. He denies any further symptoms since that time. She is seen and examined sitting up in bed in no acute distress. Repeat EKG reveals sinus mechanism with no acute ST or T wave abnormalities noted. Chest x-ray is negative for an acute cardiopulmonary process. Laboratory data reviewed, CBC unremarkable, sodium 140, potassium 4.1, creatinine 0.74, cardiac enzymes negative 2, NT proBNP 34, TSH 2.71. Current daily cardiac medications include atorvastatin 10 mg daily and aspirin 81 mg daily. REVIEW OF SYSTEMS At the time of my exam: CONSTITUTIONAL: Denies fever or chills. CARDIOVASCULAR: Denies chest pain, shortness of breath, orthopnea, PND or palpitations. RESPIRATORY: Denies cough. GASTROINTESTINAL: Denies abdominal pain, diarrhea, constipation, nausea or vomit ing. MUSCULOSKELETAL: Denies myalgias. NEUROLOGIC: Denies numbness, tingling or weakness. ENDOCRINE: Denies fatigue, weight change, polydipsia or polyurina. GENITOURINARY: Denies burning, hematuria or urgency with micturation. HEMATOLOGIC: Denies history of anemia or bleeding. PHYSICAL EXAMINATION Blood pressure 153/67 heart rate 60 afebrile and maintaining oxygen saturation on room air. CONSTITUTIONAL: No apparent distress. HEENT: Head is normocephalic. Pupils are equal, round. Sclerae anicteric. Mucous membranes of the mouth are moist. No JVD. No carotid bruit. CHEST EXAMINATION: Lungs are clear to auscultation. No chest wall tenderness is noted on palpation or with deep breathing. HEART EXAMINATION: Regular rate and rhythm. S1, S2 heard. No murmurs, gallops or rub. ABDOMEN: Soft, nontender. Positive bowel sounds. EXTREMITIES: 2+ peripheral pulses, no lower extremity edema and no calf tenderness. NEUROLOGIC EXAMINATION: Patient is awake, alert and oriented x3. ASSESSMENT New-onset paroxysmal atrial fibrillation History of coronary artery disease status post PCI of the LAD 2008 Dyslipidemia PLAN Initiate Eliquis 5 mg twice a day for thromboembolic protection and Lopressor 25 mg daily. Obtain 2D echocardiogram and Doppler study to assess cardiac structure and function. He has spontaneously converted back to sinus. Stable for discharge on current regimen. Follow up in the office with Dr. Small in 2 weeks. Advised him to call the office if he has return of these symptoms prior to office visit. Thank you kindly for this consultation. Nurse Practitioner note has been reviewed, I agree with a documented findings and plan of care. Patient was seen and examined. Past Medical History Past Medical History: Coronary Artery Disease (CAD), Hyperlipidemia, Osteoarthritis (OA) Additional Past Medical History / Comment(s): denies heart diseease, hx hypertension but pt states none now, "internal hemorrhoid" History of Any Multi-Drug Resistant Organisms: None Reported Past Surgical History: Heart Catheterization With Stent, Hernia Repair, Joint Replacement Additional Past Surgical History / Comment(s): ASD closure done at [facility], bilateral knee replacement, CRISSY, umbilical inguinal hernia repairs, esperanza cataracts removed. "plate put in my neck"(states no limitation in neck movement), Past Anesthesia/Blood Transfusion Reactions: Motion Sickness Additional Past Anesthesia/Blood Transfusion Reaction / Comment(s): Pt has motion sickness only on a boat which isn't moving. Date of Last Stent Placement:: 2008 Past Psychological History: No Psychological Hx Reported Additional Psychological History / Comment(s): . Smoking Status: Former smoker Past Alcohol Use History: Rare Additional Past Alcohol Use History / Comment(s): Pt started smoking in 1965 and quit in 1975. Past Drug Use History: None Reported - Past Family History Mother Family Medical History: Cancer Additional Family Medical History / Comment(s): Mother of ovarian cancer at the age of 43yrs. Medications and Allergies Home Medications Medication Instructions Recorded Confirmed Type Atorvastatin Calcium [Lipitor] 10 mg PO HS 07/22/16 07/08/19 History Apixaban [Eliquis] 5 mg PO BID #60 tab 07/08/19 Rx Losartan [Cozaar] 50 mg PO DAILY 07/08/19 07/08/19 History Metoprolol Tartrate [Lopressor] 25 mg PO DAILY #30 tab 07/08/19 Rx Multivitamins, Thera [Multivitamin 1 tab PO DAILY 07/08/19 07/08/19 History (formulary)] [place]-3 Fatty Acids/Fish Oil [Fish 1 cap PO BID 07/08/19 07/08/19 History Oil 1,000 mg Softgel] Psyllium Husk 100% [Metamucil 6 gm PO DAILY 07/08/19 07/08/19 History Packet] Allergies Allergy/AdvReac Type Severity Reaction Status Date / Time Penicillins AdvReac Unknown Verified 07/08/19 07:56 Physical Exam Vitals: Vital Signs Temp Pulse Pulse Resp BP BP Pulse Ox 07/08/19 11:15 60 16 153/67 97 07/08/19 08:00 97.8 F 60 16 115/56 97 07/08/19 05:07 98.6 F 74 16 158/87 98 07/08/19 02:56 128 H 07/08/19 02:27 98.2 F 95 20 157/98 96 Intake and Output 07/07/19 07/08/19 07/08/19 22:59 06:59 14:59 Intake Total 360 Balance 360 Intake: Oral 360 Other: # Voids 1 Weight 93.894 kg Results 07/08/19 02:59 07/08/19 02:55 Cardiac Enzymes 07/08/19 07/08/19 07/08/19 Range/Units 02:55 03:00 08:48 AST 26 (17-59) U/L Troponin I <0.012 <0.012 (0.000-0.034) ng/mL Coagulation 07/08/19 07/08/19 Range/Units 02:59 08:48 PT 9.8 (9.0-12.0) sec APTT 22.1 22.7 (22.0-30.0) sec CBC 07/08/19 Range/Units 02:59 WBC 9.9 (3.8-10.6) k/uL RBC 5.08 (4.30-5.90) m/uL Hgb 15.7 (13.0-17.5) gm/dL Hct 46.2 (39.0-53.0) % Plt Count 208 (150-450) k/uL Comprehensive Metabolic Panel 07/08/19 Range/Units 02:55 Sodium 140 (137-145) mmol/L Potassium 4.1 (3.5-5.1) mmol/L Chloride 106 (98-107) mmol/L Carbon Dioxide 25 (22-30) mmol/L BUN 22 H (9-20) mg/dL Creatinine 0.74 (0.66-1.25) mg/dL Glucose 125 H (74-99) mg/dL Calcium 9.4 (8.4-10.2) mg/dL AST 26 (17-59) U/L ALT 22 (4-49) U/L Alkaline Phosphatase 99 (38-126) U/L Total Protein 7.0 (6.3-8.2) g/dL Albumin 4.3 (3.5-5.0) g/dL Current Medications Generic Name Dose Route Start Last Admin Trade Name Freq PRN Reason Stop Dose Admin Apixaban 5 mg 07/08/19 09:15 07/08/19 09:53 Eliquis PO 5 mg BID OLENA Administration Metoprolol Tartrate 25 mg 07/08/19 10:15 07/08/19 11:15 Lopressor PO 25 mg DAILY OLENA Administration Nitroglycerin 0.4 mg 07/08/19 03:51 Nitrostat SUBLINGUAL Q5M PRN Chest Pain Intake and Output 07/07/19 07/08/19 07/08/19 22:59 06:59 14:59 Intake Total 360 Balance 360 Intake: Oral 360 Other: # Voids 1 Weight 93.894 kg 07/08/19 02:59 07/08/19 02:55
[2019-07-08 13:49] VITALS: BP 136/74; PULSE 54
--- NOTE | 2019-07-08 14:56 | ECHOF ---
Referral Reason:new onset afib MEASUREMENTS -------- HEIGHT: 162.6 cm WEIGHT: 93.9 kg BP: RVIDd: 4.0 cm (< 3.3) IVSd: 1.3 cm (0.6 - 1.1) LVIDd: 5.0 cm (3.9 - 5.3) LVPWd: 1.2 cm (0.6 - 1.1) IVSs: 1.7 cm LVIDs: 3.6 cm LVPWs: 1.5 cm LA Diam: 4.1 cm (2.7 - 3.8) LAESV Index (A-L): 27.07 ml/m MV EXCURSION: 17.961 mm (> 18.000) MV EF SLOPE: 92 mm/s (70 - 150) EPSS: 0.5 cm MV E Phuc: 0.66 m/s MV DecT: 149 ms MV A Phuc: 0.19 m/s MV E/A Ratio: 3.42 RAP: 5.00 mmHg RVSP: 44.20 mmHg FINDINGS -------- Sinus rhythm. This was a technically good study. LV size, wall thickness and systolic function are normal, with an EF greater than 55%. The left daniel tricular size is normal. The diastolic filling pattern is normal for the age of the patient 9.39. The right ventricle is moderately enlarged. The left atrium is mildly dilated. Normal LA size by volume 22+/-6 ml/m2. The right atrial size is normal. ASD Closure 2009. There is mild aortic valve sclerosis. There is no evidence of aortic regurgitation. Mild mitral annular calcification present. Mild mitral regurgitation is present. Mild tricuspid regurgitation present. There is mild pulmonary hypertension. The right ventricular systolic pressure, as measured by Doppler, is 44.20mmHg. There is no pulmonic regurgitation present. The aortic root size is normal. There is no pericardial effusion. CONCLUSIONS -------- 1. Sinus rhythm. 2. This was a technically good study. 3. LV size, wall thickness and systolic function are normal, with an EF greater than 55%. 4. The left ventricular size is normal. 5. The diastolic filling pattern is normal for the age of the patient 9.39 6. The right ventricle is moderately enlarged. 7. The left atrium is mildly dilated. 8. Normal LA size by volume 22+/-6 ml/m2. 9. The right atrial size is normal. 10. ASD Closure 2009. 11. There is mild aortic valve sclerosis. 12. Mild mitral annular calcification present. 13. Mild mitral regurgitation is present. 14. Mild tricuspid regurgitation present. 15. There is mild pulmonary hypertension. 16. The right ventricular systolic pressure, as measured by Doppler, is 44.20mmHg. 17. There is no pulmonic regurgitation present. 18. The aortic root size is normal. 19. There is no pericardial effusion. MANAGER HVAC: Ailin Khan RDCS
--- NOTE | 2019-07-08 22:37 | P.HPIM ---
History of Present Illness H&P Date: 07/08/19 Chief Complaint: Heart racing up fast Patient is 73-year-old male with a known history of coronary disease status post stent placement, hyperlipidemia, osteoarthritis and previous history of smoking and ASD status post closure came to ER with complaints of heart racing up fast. Patient was sitting on the couch and watching television yesterday when he felt his heart started to beat rapidly. She also felt tightness in the chest. Patient was found have atrial fibrillation with rapid ventricular rate on arrival to the hospital ER. Patient was initially started on Cardizem drip and he did convert to sinus rhythm spontaneously. Chest x-ray showed no acute cardio work process. Laboratory data reviewed. Sodium 140 potassium 4.1, BUN 22, creatinine 0.74 and troponin 2 negative NT proBNP is 34 and TSH level is 2.71 within normal limits. Currently patient is symptomatic otherwise. Review of Systems Constitutional: Patient denies any fever or chills . No generalized weakness or weight loss. Abdomen: Patient denied nausea vomiting and diarrhea and abdominal pain. Cardiovascular: Patient denies any chest pain or short of breath no palpitations. Respiratory: patient denied any cough is from production. No shortness of breath Neurologic: Patient denied any numbness or tingling headache. Musculoskeletal: Patient denies any complaints of joint swelling or deformity. Skin: Negative Psychiatric: Negative Endocrine: No heat or cold intolerance. No recent weight gain. Genitourinary: No dysuria or hematuria. All other 14 point ROS negative except the above Past Medical History Past Medical History: Coronary Artery Disease (CAD), Hyperlipidemia, Osteoarthritis (OA) Additional Past Medical History / Comment(s): denies heart diseease, hx hypertension but pt states none now, "internal hemorrhoid" History of Any Multi-Drug Resistant Organisms: None Reported Past Surgical History: Heart Catheterization With Stent, Hernia Repair, Joint Replacement Additional Past Surgical History / Comment(s): ASD closure done at [facility], bilateral knee replacement, CRISSY, umbilical inguinal hernia repairs, [place]anza cataracts removed. "plate put in my neck"(states no limitation in neck movement), Past Anesthesia/Blood Transfusion Reactions: Motion Sickness Additional Past Anesthesia/Blood Transfusion Reaction / Comment(s): Pt has motion sickness only on a boat which isn't moving. Date of Last Stent Placement:: 2008 Past Psychological History: No Psychological Hx Reported Additional Psychological History / Comment(s): . Smoking Status: Former smoker Past Alcohol Use History: Rare Additional Past Alcohol Use History / Comment(s): Pt started smoking in 1965 and quit in 1975. Past Drug Use History: None Reported - Past Family History Mother Family Medical History: Cancer Additional Family Medical History / Comment(s): Mother of ovarian cancer at the age of 43yrs. Medications and Allergies Home Medications Medication Instructions Recorded Confirmed Type Atorvastatin Calcium [Lipitor] 10 mg PO HS 07/22/16 07/08/19 History Apixaban [Eliquis] 5 mg PO BID #60 tab 07/08/19 Rx Losartan [Cozaar] 50 mg PO DAILY 07/08/19 07/08/19 History Metoprolol Tartrate [Lopressor] 25 mg PO DAILY #30 tab 07/08/19 Rx Multivitamins, Thera [Multivitamin 1 tab PO DAILY 07/08/19 07/08/19 History (formulary)] [place]-3 Fatty Acids/Fish Oil [Fish 1 cap PO BID 07/08/19 07/08/19 History Oil 1,000 mg Softgel] Psyllium Husk 100% [Metamucil 6 gm PO DAILY 07/08/19 07/08/19 History Packet] Allergies Allergy/AdvReac Type Severity Reaction Status Date / Time Penicillins AdvReac Unknown Verified 07/08/19 07:56 Physical Exam Vitals: Vital Signs Temp Pulse Pulse Resp BP BP Pulse Ox 07/08/19 08:00 97.8 F 55 L 16 115/56 97 07/08/19 05:07 98.6 F 74 16 158/87 98 07/08/19 02:56 128 H 07/08/19 02:27 98.2 F 95 20 157/98 96 Intake and Output 07/07/19 07/08/19 07/08/19 22:59 06:59 14:59 Intake Total 360 Balance 360 Intake: Oral 360 Other: # Voids 1 Weight 93.894 kg PHYSICAL EXAMINATION: Patient is lying in the bed comfortably, no acute distress, awake alert and oriented.. HEENT: Normocephalic. Neck is supple. Pupils reactive. Nostrils clear. Oral cavity is moist. Ears reveal no drainage. Neck reveals no JVD, carotid bruits, or thyromegaly. CHEST EXAMINATION: Trachea is central. Symmetrical expansion. Lung patel clear to auscultation and percussion. CARDIAC: Normal S1, S2 with no gallops. No murmurs ABDOMEN: Soft. Bowel sounds normal. No organomegaly. No abdominal bruits. Extremities: reveal no edema. No clubbing or cyanosis Neurologically awake, alert, oriented x3 with well-coordinated movements. No focal deficits noted Skin: No rash or skin lesions. Psychiatric: Coperative. Nonsuicidal Musculoskeletal: No joint swelling or deformity. Normal range of motion. Results CBC & Chem 7: 07/08/19 02:59 07/08/19 02:55 Labs: Abnormal Lab Results - Last 24 Hours (Table) 07/08/19 Range/Units 02:55 BUN 22 H (9-20) mg/dL Glucose 125 H (74-99) mg/dL Thrombosis Risk Factor Assmnt - DVT/VTE Prophylaxis DVT/VTE Prophylaxis: Pharmacologic Prophylaxis ordered - Choose All That Apply Any of the Below Risk Factors Present?: Yes Each Factor Represents 1 point: Swollen legs (current) Other Risk Factors: Yes Each Risk Factor Represents 2 Points: Age 61-74 years Other congenital or acquired thrombophilia - If yes, enter type in comment: No Thrombosis Risk Factor Assessment Total Risk Factor Score: 3 Thrombosis Risk Factor Assessment Level: Moderate Risk Assessment and Plan Assessment: New onset atrial fibrillation with rapid ventricular rate. Converted to sinus rhythm Coronary artery disease with history of stent placement Hyperlipidemia Previous history of smoking History of ASD closure Morbid obesity BMI 35.5 Plan: Patient be continued on telemetry monitoring. Initially patient was started on Cardizem drip and he did convert to sinus rhythm now. Heart rate is controlled. Patient was started on Lopressor 25 mg daily. Anticoagulation was initiated in the form Eliquis 5 mg twice daily. Cardiology has seen the patient. 2-D echo cardiac exam showed his ejection fraction 55% and no significant valvular abnormalities were noted.. Further recommendations based on the clinical course. Time with Patient: Greater than 30
--- NOTE | 2019-07-08 22:41 | P.DS ---
Providers Date of admission: 07/08/19 03:54 Expected date of discharge: 07/08/19 Attending physician: Manish Simpson Consults: 07/08/19 03:51 Consult Physician Urgent Consulting Provider: [facility] Consult Reason/Comments: new afib RVR Do you want consulting provider notified?: Yes, Notify in am Primary care physician: Fabiana [place] Hospital Course: Discharge diagnosis New onset atrial fibrillation with rapid ventricular rate. Converted to sinus rhythm. paroxysmal. Coronary artery disease with history of stent placement Hyperlipidemia Previous history of smoking History of ASD closure Morbid obesity BMI 35.5 Hospital course Patient is 73-year-old male with a known history of coronary disease status post stent placement, hyperlipidemia, osteoarthritis and previous history of smoking and ASD status post closure came to ER with complaints of heart racing up fast. Patient was sitting on the couch and watching television yesterday when he felt his heart started to beat rapidly. She also felt tightness in the chest. Patient was found have atrial fibrillation with rapid ventricular rate on arrival to the hospital ER. Patient was initially started on Cardizem drip and he did convert to sinus rhythm spontaneously. Chest x-ray showed no acute cardio work process. Laboratory data reviewed. Sodium 140 potassium 4.1, BUN 22, creatinine 0.74 and troponin 2 negative NT proBNP is 34 and TSH level is 2.71 within normal limits. Currently patient is symptomatic otherwise. Patient was continued on telemetry monitoring. Initially patient was started on Cardizem drip and he did convert to sinus rhythm now. Heart rate is controlled. Patient was started on Lopressor 25 mg daily. Anticoagulation was initiated in the form Eliquis 5 mg twice daily. Cardiology has seen the patient. 2-D echo cardiac exam showed his ejection fraction 55% and no significant valvular abnormalities were noted. Patient is currently asymptomatic and cleared by cardiology. Discharge physical examination was done and vitals reviewed. Patient Condition at Discharge: Stable Plan - Discharge Summary New Discharge Prescriptions: New Apixaban [Eliquis] 5 mg PO BID #60 tab Metoprolol Tartrate [Lopressor] 25 mg PO DAILY #30 tab Continue Atorvastatin Calcium [Lipitor] 10 mg PO HS Psyllium Husk 100% [Metamucil Packet] 6 gm PO DAILY [place]-3 Fatty Acids/Fish Oil [Fish Oil 1,000 mg Softgel] 1 cap PO BID Multivitamins, Thera [Multivitamin (formulary)] 1 tab PO DAILY Discontinued Aspirin EC [Ecotrin Low Dose] 81 mg PO HS No Action Losartan [Cozaar] 50 mg PO DAILY Discharge Medication List Atorvastatin Calcium [Lipitor] 10 mg PO HS 07/22/16 [History] Apixaban [Eliquis] 5 mg PO BID #60 tab 07/08/19 [Rx] Losartan [Cozaar] 50 mg PO DAILY 07/08/19 [History] Metoprolol Tartrate [Lopressor] 25 mg PO DAILY #30 tab 07/08/19 [Rx] Multivitamins, Thera [Multivitamin (formulary)] 1 tab PO DAILY 07/08/19 [History] [place]-3 Fatty Acids/Fish Oil [Fish Oil 1,000 mg Softgel] 1 cap PO BID 07/08/19 [History] Psyllium Husk 100% [Metamucil Packet] 6 gm PO DAILY 07/08/19 [History] Follow up Appointment(s)/Referral(s): Merlyn Small MD [STAFF PHYSICIAN] - 2 Weeks (Please call Wednesday to schedule your appointment.) Fabiana Arora MD [Primary Care Provider] - 1-2 days (Please call Wednesday to schedule your appointment.) Patient Instructions/Handouts: A-fib (Atrial Fibrillation) (DC) Activity/Diet/Wound Care/Special Instructions: Monitor your heart rate at home before taking Metoprolol. Hold if your heart rate is 55 beats per minute or less. Per Suzy. Discharge Disposition: HOME SELF-CARE
[2019-07-09] MEDS ORDERED: ASPIRIN 325 MG TAB PO SCH (09:00)
[2019-07-09] MEDS ORDERED: ASPIRIN 81 MG PO SCH (09:00)
== END 2019-07-08 13:45 | disposition home or self-care (01) | DRG 310 ==
LOC: EC 02:24 → 3SCARD 03:54
PROVIDERS: ADMIT Hospitalist; ATTEND Hospitalist
DX: I48.0 Paroxysmal atrial fibrillation (principal); E78.5 Hyperlipidemia, unspecified; I25.10 Atherosclerotic heart disease of native coronary artery without angina pectoris; K64.8 Other hemorrhoids; M19.90 Unspecified osteoarthritis, unspecified site; E66.01 Morbid (severe) obesity due to excess calories; Z68.35 Body mass index [BMI] 35.0-35.9, adult; Z79.82 Long term (current) use of aspirin; Z79.899 Other long term (current) drug therapy; Z87.891 Personal history of nicotine dependence; Z95.5 Presence of coronary angioplasty implant and graft; Z87.74 Personal history of (corrected) congenital malformations of heart and circulatory system; Z96.653 Presence of artificial knee joint, bilateral; Z98.890 Other specified postprocedural states; Z98.42 Cataract extraction status, left eye; Z98.41 Cataract extraction status, right eye; Z88.0 Allergy status to penicillin; Z80.41 Family history of malignant neoplasm of ovary
CPT/HCPCS: 36415; 71046; 80053; 83735; 83880; 84443; 84484; 85025; 85610; 85730; 93005; 93306; 96360; 99285

== ENCOUNTER 2019-07-24 04:31 | Observation (INO) | payer BC, MEDICARE ==
[2019-07-24] MEDS ORDERED: ASPIRIN 81 MG PO STA (04:43)
[2019-07-24] MEDS ORDERED: DILTIAZEM 125 MG in SODIUM CHLORIDE 0.9% 100 ML IV SCH (04:45)
[2019-07-24 05:17] LABS: Basophils # (A) 0.1 k/uL (0-0.2); Basophils % (A) 1 %; Eosinophils # (A) 0.3 k/uL (0-0.7); Eosinophils % (A) 3 %; HGB 16.1 gm/dL (13.0-17.5); Lymphocytes % (A) 29 %; MCH 30.9 pg (25.0-35.0); MCHC 33.6 g/dL (31.0-37.0); MCV 92.1 fL (80.0-100.0); Mean Platelet Volume 7.7; Monocytes # (A) 0.7 k/uL (0-1.0); Monocytes % (A) 6 %; Neutrophils # (A) 6.3 k/uL (1.3-7.7); Neutrophils % (A) 60 %; Platelet Count 204 k/uL (150-450); RBC 5.21 m/uL (4.30-5.90); WBC 10.6 k/uL (3.8-10.6)
[2019-07-24 05:25] LABS: INR 0.9 (<1.2); Partial Thromboplastin Time 23.9 sec (22.0-30.0); Prothrombin Time 9.8 sec (9.0-12.0)
[2019-07-24 05:26] LABS: ALT 19 U/L (4-49); AST 27 U/L (17-59); African American GFR (CKD) >90 (>60 ml/min/1.73 sqM); Albumin 4.6 g/dL (3.5-5.0); Alkaline Phosphatase 118 U/L (38-126); Anion Gap 11 mmol/L; Blood Urea Nitrogen 24 mg/dL (9-20); Calcium 9.4 mg/dL (8.4-10.2); Carbon Dioxide 22 mmol/L (22-30); Chloride 106 mmol/L (98-107); Glucose 123 mg/dL (74-99); Magnesium 2.1 mg/dL (1.6-2.3); Non-African American GFR(CKD) >90 (>60 ml/min/1.73 sqM); Sodium 139 mmol/L (137-145); Total Bilirubin 0.7 mg/dL (0.2-1.3); Total Protein 7.5 g/dL (6.3-8.2)
--- NOTE | 2019-07-24 05:31 | ED ---
Arrhythmia/Palpitations HPI - General Chief Complaint: Arrhythmia/Palpitations Stated Complaint: High heart rate Time Seen by Provider: 07/24/19 04:42 Source: patient Mode of arrival: ambulatory Limitations: no limitations - History of Present Illness Initial Comments: Jules is a 73-year-old gentleman who was recently admitted the hospital for new onset of atrial fibrillation however converted to sinus rhythm, he was started on an anticoagulant during the hospitalization and continued on his metoprolol acute arty been taking for blood pressure. Patient reports that he been doing well since his previous hospitalization however tonight he woke up with palpitations and checked his watch which revealed his heart rate was in the 150s at which time he decided come back to the hospital for evaluation. Patient states that he was watching his heart rate on his watch and is varying between the 50s and 150s and that he would have palpitations when his heart rate would get really fast. Patient reports he's been compliant with all his home medicati ons he hasn't missed any doses of metoprolol or eliquis. Patient reports he's been in his usual state of health until this woke him suddenly at 1 AM. Patient denies any chest pain or pressure, he does report mild shortness breath when his heart is racing. - Related Data Home Medications Medication Instructions Recorded Confirmed Atorvastatin Calcium [Lipitor] 10 mg PO HS 07/22/16 07/08/19 Multivitamins, Thera [Multivitamin 1 tab PO DAILY 07/08/19 07/08/19 (formulary)] [place]-3 Fatty Acids/Fish Oil [Fish 1 cap PO BID 07/08/19 07/08/19 Oil 1,000 mg Softgel] Psyllium Husk 100% [Metamucil 6 gm PO DAILY 07/08/19 07/08/19 Packet] Previous Rx's Medication Instructions Recorded Apixaban [Eliquis] 5 mg PO BID #60 tab 07/08/19 Losartan [Cozaar] 25 mg PO DAILY #0 07/08/19 Metoprolol Tartrate [Lopressor] 25 mg PO DAILY #30 tab 07/08/19 Allergies Allergy/AdvReac Type Severity Reaction Status Date / Time Penicillins AdvReac Unknown Verified 07/24/19 04:40 Review of Systems ROS Statement: Those systems with pertinent positive or pertinent negative responses have been documented in the HPI. ROS Other: All systems not noted in ROS Statement are negative. Past Medical History Past Medical History: Atrial Fibrillation, Coronary Artery Disease (CAD), Hyperlipidemia, Osteoarthritis (OA) Additional Past Medical History / Comment(s): denies heart diseease, hx hypertension but pt states none now, "internal hemorrhoid" History of Any Multi-Drug Resistant Organisms: None Reported Past Surgical History: Heart Catheterization With Stent, Hernia Repair, Joint Replacement Additional Past Surgical History / Comment(s): ASD closure done at [facility], bilateral knee replacement, CRISSY, umbilical inguinal hernia repairs, [place] cataracts removed. "plate put in my neck"(states no limitation in neck movement), Past Anesthesia/Blood Transfusion Reactions: Motion Sickness Additional Past Anesthesia/Blood Transfusion Reaction / Comment(s): Pt has motion sickness only on a boat which isn't moving. Date of Last Stent Placement:: 2008 Past Psychological History: No Psychological Hx Reported Smoking Status: Former smoker Past Alcohol Use History: Rare Past Drug Use History: None Reported - Past Family History Mother Family Medical History: Cancer Additional Family Medical History / Comment(s): Mother of ovarian cancer at the age of 43yrs. General Exam - General Exam Comments Initial Comments: Physical Exam GENERAL: Patient is well-developed and well-nourished. Patient is nontoxic and well-hydrated and is in no distress. HENT: Normocephalic, Atraumatic. EYES: PERRL, EOMI PULMONARY: Unlabored respirations. No audible rales rhonchi or wheezing was noted. CARDIOVASCULAR: Irregularly irregular, tachycardic Warm and well perfused extremities ABDOMEN: Soft and nontender with normal bowel sounds. SKIN: Skin is clear with no lesions or rashes and otherwise unremarkable. : Deferred NEUROLOGIC: Patient is alert and oriented x3. Moving all extremities spontaneously MUSCULOSKELETAL: Normal extremities with adequate strength and full range of motion. No lower extremity swelling or edema. No calf tenderness. PSYCHIATRIC: Normal psychiatric evaluation. Limitations: no limitations Course Vital Signs 07/24/19 07/24/19 07/24/19 04:36 05:16 05:39 Temperature 98.3 F Pulse Rate 142 H 75 75 Respiratory 20 18 18 Rate Blood Pressure 143/93 132/84 O2 Sat by Pulse 96 98 Oximetry EKG Findings - EKG Comments: EKG Findings:: EKG was ordered due to complaining of tachycardia and palpitations, EKG obtained at 4:55 AM, rate is 142 rhythm is narrow complex irregularly irregular rhythm consistent with atrial fibrillation with rapid ventricular response, normal axis, normal intervals, mild ST depression in V2 through V6 weekly secondary to demand ischemia. No acute ST elevations no evidence of acute infarction. Medical Decision Making - Medical Decision Making Patient was seen and evaluated upon arrival emergency department, history is obtained from patient and review of medical record Patient with recently diagnosed atrial fibrillation, on metoprolol Patient was in A. fib with RVR upon arrival in the emergency department, labs and imaging Cardizem were ordered Upon my reevaluation patient's heart rate decreased from 140 to the 60s and he reported feeling better however then had a short run of nonsustained circular tachycardia and resumed atrial fibrillation with RVR. Shortly after patient again returned back to regular rate prior to Cardizem being initiated. Patient be admitted for evaluation by cardiology - Lab Data Result diagrams: 07/24/19 04:54 07/24/19 04:54 Lab Results 07/24/19 07/24/19 07/24/19 Range/Units 04:54 04:54 04:54 WBC 10.6 (3.8-10.6) k/uL RBC 5.21 (4.30-5.90) m/uL Hgb 16.1 (13.0-17.5) gm/dL Hct 48.0 (39.0-53.0) % MCV 92.1 (80.0-100.0) fL MCH 30.9 (25.0-35.0) pg MCHC 33.6 (31.0-37.0) g/dL RDW 14.0 (11.5-15.5) % Plt Count 204 (150-450) k/uL Neutrophils % 60 % Lymphocytes % 29 % Monocytes % 6 % Eosinophils % 3 % Basophils % 1 % Neutrophils # 6.3 (1.3-7.7) k/uL Lymphocytes # 3.0 (1.0-4.8) k/uL Monocytes # 0.7 (0-1.0) k/uL Eosinophils # 0.3 (0-0.7) k/uL Basophils # 0.1 (0-0.2) k/uL PT 9.8 (9.0-12.0) sec INR 0.9 (<1.2) APTT 23.9 (22.0-30.0) sec Sodium 139 (137-145) mmol/L Potassium 4.0 (3.5-5.1) mmol/L Chloride 106 (98-107) mmol/L Carbon Dioxide 22 (22-30) mmol/L Anion Gap 11 mmol/L BUN 24 H (9-20) mg/dL Creatinine 0.71 (0.66-1.25) mg/dL Est GFR (CKD-EPI)AfAm >90 (>60 ml/min/1.73 sqM) Est GFR (CKD-EPI)NonAf >90 (>60 ml/min/1.73 sqM) Glucose 123 H (74-99) mg/dL Calcium 9.4 (8.4-10.2) mg/dL Magnesium 2.1 (1.6-2.3) mg/dL Total Bilirubin 0.7 (0.2-1.3) mg/dL AST 27 (17-59) U/L ALT 19 (4-49) U/L Alkaline Phosphatase 118 (38-126) U/L Troponin I (0.000-0.034) ng/mL Total Protein 7.5 (6.3-8.2) g/dL Albumin 4.6 (3.5-5.0) g/dL 07/24/19 Range/Units 04:54 WBC (3.8-10.6) k/uL RBC (4.30-5.90) m/uL Hgb (13.0-17.5) gm/dL Hct (39.0-53.0) % MCV (80.0-100.0) fL MCH (25.0-35.0) pg MCHC (31.0-37.0) g/dL RDW (11.5-15.5) % Plt Count (150-450) k/uL Neutrophils % % Lymphocytes % % Monocytes % % Eosinophils % % Basophils % % Neutrophils # (1.3-7.7) k/uL Lymphocytes # (1.0-4.8) k/uL Monocytes # (0-1.0) k/uL Eosinophils # (0-0.7) k/uL Basophils # (0-0.2) k/uL PT (9.0-12.0) sec INR (<1.2) APTT (22.0-30.0) sec Sodium (137-145) mmol/L Potassium (3.5-5.1) mmol/L Chloride (98-107) mmol/L Carbon Dioxide (22-30) mmol/L Anion Gap mmol/L BUN (9-20) mg/dL Creatinine (0.66-1.25) mg/dL Est GFR (CKD-EPI)AfAm (>60 ml/min/1.73 sqM) Est GFR (CKD-EPI)NonAf (>60 ml/min/1.73 sqM) Glucose (74-99) mg/dL Calcium (8.4-10.2) mg/dL Magnesium (1.6-2.3) mg/dL Total Bilirubin (0.2-1.3) mg/dL AST (17-59) U/L ALT (4-49) U/L Alkaline Phosphatase (38-126) U/L Troponin I <0.012 (0.000-0.034) ng/mL Total Protein (6.3-8.2) g/dL Albumin (3.5-5.0) g/dL Disposition Clinical Impression: Atrial fibrillation Disposition: ADMITTED IP TO THIS HOSP Condition: Stable Is patient prescribed a controlled substance at d/c from ED?: No
[2019-07-24] MEDS ORDERED: NALOXONE 0.4 MG/ML 1 ML VIAL IV PRN (05:32)
--- NOTE | 2019-07-24 05:42 | XR ---
EXAMINATION TYPE: XR chest 2V DATE OF EXAM: 07/24/2019 COMPARISON: 07/08/2019 HISTORY: Dysrhythmia. TECHNIQUE: FINDINGS: There is no heart failure nor confluent pneumonic infiltrate. Costophrenic angles are clear . There are chest leads. Bony thorax is intact. IMPRESSION: No active cardiopulmonary disease. Normal heart. No change.
[2019-07-24] MEDS: METOPROLOL TARTRATE 25 MG TAB PO SCH (09:38)
[2019-07-24] MEDS: LOSARTAN 25 MG TAB PO SCH (09:39)
[2019-07-24] MEDS: APIXABAN 5 MG TAB PO SCH ×2 (09:39→19:37)
[2019-07-24] MEDS ORDERED: AMIODARONE 200 MG TAB PO SCH (10:15)
[2019-07-24] MEDS ORDERED: DEXTROSE 5% IN WATER 100 ML with AMIODARONE 150 MG IV ONE (10:33)
[2019-07-24] MEDS ORDERED: AMIODARONE 360 MG in DEXTROSE 5% IN WATER 200 ML IV ONE ×2 (10:34)
--- NOTE | 2019-07-24 11:29 | P.HPIM ---
History of Present Illness This is a pleasant 73 years old male with past medical history of atrial fibrillation, coronary artery disease, hyperlipidemia, osteoarthritis. He presents because he woke up with a pressure sensation in his chest with bounding associated with some dizziness, he checked his upper which and Proteus his heart rate is irregular at 14 7 bpm, so he decided to come to the hospital Patient has been discharged from [facility] about 2 weeks ago for similar problem at that time his atrial fibrillation converted to sinus rhythm and he was discharged on the same dose of metoprolol and Eliquis Currently vital signs stable, blood pressure on the high side with 168/85, he is saturating 98% on 2 L. CBC, BMP and liver enzymes are unremarkable, troponin is negative less than 0.012 Chest x-ray: No acute process. EKG: Atrial fibrillation with rapid ventricular response with premature ventricular or aberrantly conducted complex at a rate of 142, no suspicion of inferior ischemia, QTC is 486 Patient has been evaluated by cardio Review of Systems CONSTITUTIONAL: No fever, no malaise, no fatigue. HEENT: No recent visual problems or hearing problems. Denied any sore throat. CARDIOVASCULAR: No orthopnea, PND, no palpitations, no syncope. PULMONARY: No shortness of breath, no cough, no hemoptysis. GASTROINTESTINAL: No diarrhea, no nausea, no vomiting, no abdominal pain. Normoactive bowel sounds. NEUROLOGICAL: No headaches, no weakness, no numbness. HEMATOLOGICAL: Denies any bleeding or petechiae. GENITOURINARY: Denies any burning micturition, frequency, or urgency. MUSCULOSKELETAL/RHEUMATOLOGICAL: Denies any joint pain, swelling, or any muscle pain. ENDOCRINE: Denies any polyuria or polydipsia. Past Medical History Past Medical History: Atrial Fibrillation, Coronary Artery Disease (CAD), Hyperlipidemia, Osteoarthritis (OA) Additional Past Medical History / Comment(s): denies heart diseease, hx hypertension but pt states none now, "internal hemorrhoid" History of Any Multi-Drug Resistant Organisms: None Reported Past Surgical History: Heart Catheterization With Stent, Hernia Repair, Joint Replacement Additional Past Surgical History / Comment(s): ASD closure done at [facility], bilateral knee replacement, CRISSY, umbilical inguinal hernia repairs, esperanza cataracts removed. "plate put in my neck"(states no limitation in neck movement), Past Anesthesia/Blood Transfusion Reactions: Motion Sickness Additional Past Anesthesia/Blood Transfusion Reaction / Comment(s): Pt has motion sickness only on a boat which isn't moving. Date of Last Stent Placement:: 2008 Past Psychological History: No Psychological Hx Reported Smoking Status: Former smoker Past Alcohol Use History: Rare Past Drug Use History: None Reported - Past Family History Mother Family Medical History: Cancer Additional Family Medical History / Comment(s): Mother of ovarian cancer at the age of 43yrs. Medications and Allergies Home Medications Medication Instructions Recorded Confirmed Type Atorvastatin Calcium [Lipitor] 10 mg PO HS 07/22/16 07/24/19 History Apixaban [Eliquis] 5 mg PO BID #60 tab 07/08/19 07/24/19 Rx Losartan [Cozaar] 25 mg PO DAILY #0 07/08/19 07/24/19 Rx Metoprolol Tartrate [Lopressor] 25 mg PO DAILY #30 tab 07/08/19 07/24/19 Rx Multivitamins, Thera [Multivitamin 1 tab PO DAILY 07/08/19 07/24/19 History (formulary)] Thornton-3 Fatty Acids/Fish Oil [Fish 1 cap PO BID 07/08/19 07/24/19 History Oil 1,000 mg Softgel] Psyllium Husk 100% [Metamucil 6 gm PO DAILY 07/08/19 07/24/19 History Packet] Allergies Allergy/AdvReac Type Severity Reaction Status Date / Time Penicillins AdvReac Unknown Verified 07/24/19 10:48 Physical Exam Vitals: Vital Signs Temp Pulse Pulse Resp BP BP Pulse Ox 07/24/19 06:20 62 18 07/24/19 06:09 97.6 F 62 18 168/85 98 07/24/19 05:39 75 18 132/84 98 07/24/19 05:16 75 18 07/24/19 04:36 98.3 F 142 H 20 143/93 96 Intake and Output 07/23/19 07/24/19 07/24/19 22:59 06:59 14:59 Other: Weight 95.7 kg GENERAL: The patient is alert and oriented x3, not in any acute distress. Well developed, well nourished. HEENT: Pupils are round and equally reacting to light. EOMI. No scleral icterus. No conjunctival pallor. Normocephalic, atraumatic. No pharyngeal erythema. No thyromegaly. CARDIOVASCULAR: S1 and S2 present. No murmurs, rubs, or gallops. PULMONARY: Chest is clear to auscultation, no wheezing or crackles. ABDOMEN: Soft, nontender, nondistended, normoactive bowel sounds. No palpable organomegaly. MUSCULOSKELETAL: No joint swelling or deformity. EXTREMITIES: No cyanosis, clubbing, or pedal edema. NEUROLOGICAL: Gross neurological examination did not reveal any focal deficits. SKIN: No rashes. No petechiae logist and started on amiodarone drip and patient was transferred from observation unit up to the select unit Results CBC & Chem 7: 07/24/19 04:54 07/24/19 04:54 Labs: Abnormal Lab Results - Last 24 Hours (Table) 07/24/19 Range/Units 04:54 BUN 24 H (9-20) mg/dL Glucose 123 H (74-99) mg/dL Thrombosis Risk Factor Assmnt - Choose All That Apply Each Factor Represents 1 point: Obesity (BMI >25) Each Risk Factor Represents 2 Points: Age 61-74 years Other congenital or acquired thrombophilia - If yes, enter type in comment: No Thrombosis Risk Factor Assessment Total Risk Factor Score: 3 Thrombosis Risk Factor Assessment Level: Moderate Risk Assessment and Plan Assessment: Atrial fibrillation with rapid ventricular response with premature ventricular or aberrantly conducted complex Hyperlipidemia Osteoarthritis History of coronary artery disease Atrial fibrillation on Eliquis Plan: this is a pleasant 73 years old male who presents with atrial fibrillation with possible aberrant conduction, follow-up recommendation by mosaic layer, he was started on amiodarone drip upon recommendation by cardiology team Labs and medication were reviewed.. Continue same treatment. Continue with symptomatic treatment. Resume home medication. Monitor lytes and vitals. DVT and GI prophylaxis. Further recommendations of the clinical course of the patient DVT prophylaxis: Eliquis GI Prophylaxis: Pepcid Prognosis is guarded
[2019-07-24] MEDS: AMIODARONE 300 MG in DEXTROSE 5% IN WATER 250 ML IV SCH ×2 (19:38)
[2019-07-24] MEDS ORDERED: ATORVASTATIN 10 MG TAB PO SCH (21:00)
--- NOTE | 2019-07-25 06:58 | P.PN ---
Subjective This is a pleasant 73 years old male with past medical history of atrial fibrillation, coronary artery disease, hyperlipidemia, osteoarthritis. He presents because he woke up with a pressure sensation in his chest with bounding associated with some dizziness, he checked his upper which and Proteus his heart rate is irregular at 14 7 bpm, so he decided to come to the hospital Patient has been discharged from [facility] about 2 weeks ago for similar problem at that time his atrial fibrillation converted to sinus rhythm and he was discharged on the same dose of metoprolol and Eliquis Currently vital signs stable, blood pressure on the high side with 168/85, he is saturating 98% on 2 L. CBC, BMP and liver enzymes are unremarkable, troponin is negative less than 0.012 Chest x-ray: No acute process. EKG: Atrial fibrillation with rapid ventricular response with premature ventricular or aberrantly conducted complex at a rate of 142, no suspicion of inferior ischemia, QTC is 486 Patient has been evaluated by cardio 07/25/2019 No chest pain or dyspnea today, he is fully awake, and oriented, no dizziness, was admitted for A. fib with RVR M Duran conduction, currently her heart rate is controlled and regular, he was started on amiodarone drip by animal care attendant team Continue monitoring, blood pressure 143/67 and heart rate 48-52, temperature is 97.8, he saturating 99% on room air. Yesterday labs show normal WBC at 10.6 K, hemoglobin 16.1, platelets of 4, INR 0.9, sodium 139, potassium 4.0, creatinine 0.7 A she remains on Eliquis and amiodarone drip currently Review of systems CONSTITUTIONAL: No fever, no malaise, no fatigue. HEENT: No recent visual problems or hearing problems. Denied any sore throat. CARDIOVASCULAR: No orthopnea, PND, no palpitations, no syncope. PULMONARY: No shortness of breath, no cough, no hemoptysis. GASTROINTESTINAL: No diarrhea, no nausea, no vomiting, no abdominal pain. Normoactive bowel sounds. NEUROLOGICAL: No headaches, no weakness, no numbness. HEMATOLOGICAL: Denies any bleeding or petechiae. GENITOURINARY: Denies any burning micturition, frequency, or urgency. MUSCULOSKELETAL/RHEUMATOLOGICAL: Denies any joint pain, swelling, or any muscle pain. ENDOCRINE: Denies any polyuria or polydipsia. Objective - Vital Signs Vital signs: Vital Signs Temp 97.8 F 07/25/19 04:00 Pulse 48 L 07/25/19 04:00 Resp 18 07/25/19 04:00 BP 143/67 07/25/19 04:00 Pulse Ox 99 07/25/19 04:00 Intake & Output 07/24/19 07/24/19 07/25/19 06:59 18:59 06:59 Intake Total 580 Balance 580 Weight 95.7 kg 96 kg Intake: Intake, IV Titration 100 Amount Dextrose 5% in Water 100 100 ml @ 618 mls/hr IV .Q10M ONE with Amiodarone 150 mg Rx#:[id number] Oral 480 Other: Voiding Method Toilet # Voids 1 1 - Exam GENERAL: The patient is alert and oriented x3, not in any acute distress. Well developed, well nourished. HEENT: Pupils are round and equally reacting to light. EOMI. No scleral icterus. No conjunctival pallor. Normocephalic, atraumatic. No pharyngeal erythema. No thyromegaly. CARDIOVASCULAR: S1 and S2 present. No murmurs, rubs, or gallops. PULMONARY: Chest is clear to auscultation, no wheezing or crackles. ABDOMEN: Soft, nontender, nondistended, normoactive bowel sounds. No palpable organomegaly. MUSCULOSKELETAL: No joint swelling or deformity. EXTREMITIES: No cyanosis, clubbing, or pedal edema. NEUROLOGICAL: Gross neurological examination did not reveal any focal deficits. SKIN: No rashes. no petechiae. - Labs CBC & Chem 7: 07/24/19 04:54 07/24/19 04:54 Assessment and Plan Assessment: Atrial fibrillation with rapid ventricular response with premature ventricular or aberrantly conducted complex Hyperlipidemia Osteoarthritis History of coronary artery disease Atrial fibrillation on Eliquis Plan: this is a pleasant 73 years old male who presents with atrial fibrillation with possible aberrant conduction, follow-up recommendation by animal care attendant, he was started on amiodarone drip upon recommendation by cardiology team Labs and medication were reviewed.. Continue same treatment. Continue with symptomatic treatment. Resume home medication. Monitor lytes and vitals. DVT and GI prophylaxis. Further recommendations of the clinical course of the patient DVT prophylaxis: Eliquis GI Prophylaxis: Pepcid Prognosis is guarded
[2019-07-25 07:13] LABS: Basophils # (A) 0.1 k/uL (0-0.2); Basophils % (A) 1 %; Eosinophils # (A) 0.2 k/uL (0-0.7); Eosinophils % (A) 2 %; HCT 43.2 % (39.0-53.0); HGB 14.2 gm/dL (13.0-17.5); Lymphocytes # (A) 2.7 k/uL (1.0-4.8); Lymphocytes % (A) 26 %; MCH 30.8 pg (25.0-35.0); MCHC 32.9 g/dL (31.0-37.0); MCV 93.6 fL (80.0-100.0); Mean Platelet Volume 7.9; Monocytes # (A) 0.6 k/uL (0-1.0); Monocytes % (A) 6 %; Neutrophils # (A) 6.3 k/uL (1.3-7.7); Neutrophils % (A) 63 %; Platelet Count 172 k/uL (150-450); RBC 4.62 m/uL (4.30-5.90); RDW 14.1 % (11.5-15.5)
[2019-07-25 07:27] LABS: African American GFR (CKD) >90 (>60 ml/min/1.73 sqM); Anion Gap 8 mmol/L; Blood Urea Nitrogen 17 mg/dL (9-20); Calcium 8.9 mg/dL (8.4-10.2); Carbon Dioxide 26 mmol/L (22-30); Chloride 105 mmol/L (98-107); Glucose 108 mg/dL (74-99); Magnesium 2.1 mg/dL (1.6-2.3); Non-African American GFR(CKD) >90 (>60 ml/min/1.73 sqM); Potassium 4.3 mmol/L (3.5-5.1); Sodium 139 mmol/L (137-145)
[2019-07-25] MEDS: METOPROLOL TARTRATE 25 MG TAB PO SCH (08:33)
[2019-07-25] MEDS: APIXABAN 5 MG TAB PO SCH (08:35)
[2019-07-25] MEDS: LOSARTAN 25 MG TAB PO SCH (08:35)
[2019-07-25] MEDS: AMIODARONE 300 MG in DEXTROSE 5% IN WATER 250 ML IV SCH ×2 (09:18)
--- NOTE | 2019-07-25 12:23 | P.PN ---
Subjective Progress Note Date: 07/25/19 This is a pleasant 73-year-old male past medical history significant for coronary artery disease status post PCI, dyslipidemia, ASD status post closure. He follows in the office with Dr. Small. Patient had a recent admission to the hospital with atrial fibrillation, and again was readmitted to the hospital because of atrial fibrillation with rapid ventricular response. He was seen in consultation on the observation unit and transferred to the cardiac unit on IV amiodarone. The plan was to load the patient with IV amiodarone, and to discharge him home today on oral amiodarone, for him to follow-up with Dr. Nolan Small in the office. This morning patient is in a normal sinus rhythm, he feels well. Blood pressure 146/60 with a heart rate in the 50s to 60s, 95% on room air. White blood cell count 10.0, hemoglobin 14.2, platelet count 172. Sodium 139, potassium 4.3, BUN 17, creatinine 0.7. Objective - Vital Signs Vital signs: Vital Signs Temp 97.8 F 07/25/19 08:00 Pulse 50 L 07/25/19 08:00 Resp 16 07/25/19 08:00 BP 147/67 07/25/19 08:00 Pulse Ox 95 07/25/19 08:00 Intake & Output 07/24/19 07/25/19 07/25/19 18:59 06:59 18:59 Intake Total 580 250 240 Balance 580 250 240 Weight 96 kg Intake: Intake, IV Titration 100 250 Amount Amiodarone 300 mg In 250 Dextrose 5% in Water 250 ml @ 0.5 MG/MIN 25 mls/hr IV .Q10H PENDING SALE TO [facility] Rx#: [id number] Dextrose 5% in Water 100 100 ml @ 618 mls/hr IV .Q10M ONE with Amiodarone 150 mg Rx#:[id number] Oral 480 240 Other: Voiding Method Toilet Toilet # Voids 1 1 0 - Exam CONSTITUTIONAL: No apparent distress. HEENT: Head is normocephalic. Pupils are equal, round. Sclerae anicteric. Mucous membranes of the mouth are moist. No JVD. No carotid bruit. CHEST EXAMINATION: Lungs are clear to auscultation. No chest wall tenderness is noted on palpation or with deep breathing. HEART EXAMINATION: Regular rate and rhythm. S1, S2 heard. No murmurs, gallops or rub. ABDOMEN: Soft, nontender. Positive bowel sounds. EXTREMITIES: 2+ peripheral pulses, no lower extremity edema and no calf tenderness. NEUROLOGIC EXAMINATION: Patient is awake, alert and oriented x3. - Labs CBC & Chem 7: 07/25/19 05:49 07/25/19 05:49 Labs: Abnormal Lab Results - Last 24 Hours (Table) 07/25/19 Range/Units 05:49 Glucose 108 H (74-99) mg/dL Assessment and Plan Plan: Assessment and plan #1 atrial fibrillation with rapid ventricular response, paroxysmal #2 known history of coronary artery disease with prior PCI to the LAD in 2019 #3 hyperlipidemia Plan Once the IV amiodarone has infuse, patient will be put on amiodarone 200 mg one tablet by mouth 3 times a day. He may be able to be discharged home later today to follow-up with Dr. Nolan Small in the office post discharge. Continue Eliquis 5 mg one tablet by mouth twice a day DNP note has been reviewed, I agree with a documented findings and plan of care. Patient was seen and examined.
[2019-07-25 12:25] VITALS: TEMP 98
[2019-07-25 15:45] VITALS: BP 145/67; PULSE 52; RESP 18
[2019-07-25] MEDS ORDERED: AMIODARONE 200 MG TAB PO SCH (16:00)
== END 2019-07-25 16:18 | disposition home or self-care (01) ==
LOC: EC 04:31 → 1SOBS 05:32 → 3SCARD 11:01
PROVIDERS: ADMIT Internal Medicine; ATTEND Internal Medicine
DX: I48.0 Paroxysmal atrial fibrillation (principal); I25.10 Atherosclerotic heart disease of native coronary artery without angina pectoris; E78.5 Hyperlipidemia, unspecified; M19.90 Unspecified osteoarthritis, unspecified site; Z87.891 Personal history of nicotine dependence; Z95.5 Presence of coronary angioplasty implant and graft; Z87.74 Personal history of (corrected) congenital malformations of heart and circulatory system; Z96.653 Presence of artificial knee joint, bilateral; Z98.42 Cataract extraction status, left eye; Z98.41 Cataract extraction status, right eye; Z98.890 Other specified postprocedural states; Z79.01 Long term (current) use of anticoagulants; Z79.899 Other long term (current) drug therapy; Z88.0 Allergy status to penicillin; Z80.41 Family history of malignant neoplasm of ovary
CPT/HCPCS: 96365; 96366 ×2; 99285; 36415; 93005; 80053; 80048; 83735 ×2; 84484; 85025 ×2; 85610; 85730; 71046; G0378 ×3; J0282 ×3

== ENCOUNTER → 2019-08-07 | Outpatient (CLI) | payer BC ==
[2019-08-07 17:07] LABS: T4, Free (Free Thyroxine) 1.2 ng/dL (0.80-1.80)
== END | disposition home or self-care (01) ==
LOC: LABWHC1 11:19
PROVIDERS: ATTEND Internal Medicine Interventional Cardiology
DX: I48.91 Unspecified atrial fibrillation (principal)
CPT/HCPCS: 36415; 84075; 84439; 84443; 84450; 84460

== ENCOUNTER 2019-08-13 04:12 | Emergency (ER) | payer BC ==
[2019-08-13] MEDS ORDERED: ASPIRIN 81 MG PO STA (04:18)
[2019-08-13 04:39] LABS: Basophils # (A) 0.1 k/uL (0-0.2); Basophils % (A) 1 %; Eosinophils # (A) 0.2 k/uL (0-0.7); Eosinophils % (A) 2 %; HCT 42.1 % (39.0-53.0); HGB 14.5 gm/dL (13.0-17.5); Lymphocytes # (A) 2.5 k/uL (1.0-4.8); Lymphocytes % (A) 25 %; MCH 31.1 pg (25.0-35.0); MCHC 34.4 g/dL (31.0-37.0); MCV 90.6 fL (80.0-100.0); Mean Platelet Volume 7.2; Monocytes # (A) 0.4 k/uL (0-1.0); Monocytes % (A) 5 %; Neutrophils # (A) 6.4 k/uL (1.3-7.7); Neutrophils % (A) 65 %; Platelet Count 204 k/uL (150-450); RBC 4.65 m/uL (4.30-5.90); RDW 13.8 % (11.5-15.5); WBC 9.8 k/uL (3.8-10.6)
--- NOTE | 2019-08-13 04:42 | ED ---
Chest Pain HPI - General Chief Complaint: Chest Pain Stated Complaint: Chest Pain Time Seen by Provider: 08/13/19 04:13 Source: patient Mode of arrival: ambulatory Limitations: no limitations - History of Present Illness Initial Comments: Jules is a pleasant 73-year-old male with a known coronary artery disease status post stenting of the LAD in 2019. Since then patient has had multiple admissions for chest pain pressure and A. fib with RVR. During his previous admission he was treated with amiodarone discharged home with oral amiodarone as well as continue metoprolol. Patient reports that ever since developing atrial fibrillation she states that nightly he experiences chest pain and pressure. It's worse when he lays down, its mid chest. It is not associated with any nausea, vomiting, acid reflux type symptoms, cough or bad taste in his mouth. Patient states that he has this discomfort nightly. He checks his pulse when he has a discomfort and notes that since his previous admission and being prescribed amiodarone his pulse has not exceeded 100. He did contact his bicycle repairman due to some bradycardia and was advised to decrease amiodarone from 3 times daily to 2 times daily. Patient's first day of 2 times daily amiodarone was yesterday. The patient reports that tonight he had the same pain and pressure that he always has but it persisted a little bit longer which prompted him to call EMS. - Related Data Home Medications Medication Instructions Recorded Confirmed Atorvastatin Calcium [Lipitor] 10 mg PO HS 07/22/16 07/24/19 Multivitamins, Thera [Multivitamin 1 tab PO DAILY 07/08/19 07/24/19 (formulary)] [place]-3 Fatty Acids/Fish Oil [Fish 1 cap PO BID 07/08/19 07/24/19 Oil 1,000 mg Softgel] Psyllium Husk 100% [Metamucil 6 gm PO DAILY 07/08/19 07/24/19 Packet] Previous Rx's Medication Instructions Recorded Apixaban [Eliquis] 5 mg PO BID #60 tab 07/08/19 Losartan [Cozaar] 25 mg PO DAILY #0 07/08/19 Metoprolol Tartrate [Lopressor] 25 mg PO DAILY #30 tab 07/08/19 Amiodarone [Cordarone] 200 mg PO TID #90 tab 07/25/19 Allergies Allergy/AdvReac Type Severity Reaction Status Date / Time Penicillins AdvReac Unknown Verified 07/24/19 10:48 Review of Systems ROS Statement: Those systems with pertinent positive or pertinent negative responses have been documented in the HPI. ROS Other: All systems not noted in ROS Statement are negative. EKG Findings - EKG Comments: EKG Findings:: EKG was obtained due to complaints of chest pressure, EKG was obtained at 4:20 AM, rate is 57 rhythm is sinus bradycardia normal axis, WI 142, QRS mildly widened at 118, QTC [address] elevations or depressions no signs of acute ischemia or infarction. When compared to EKG obtained on July 23 the sinus bradycardia has replaced A. fib with RVR and there is less ST depression than previous. Past Medical History Past Medical History: Atrial Fibrillation, Coronary Artery Disease (CAD), Hyperlipidemia, Osteoarthritis (OA) Additional Past Medical History / Comment(s): denies heart diseease, hx hypertension but pt states none now, "internal hemorrhoid" History of Any Multi-Drug Resistant Organisms: None Reported Past Surgical History: Heart Catheterization With Stent, Hernia Repair, Joint Replacement Additional Past Surgical History / Comment(s): ASD closure done at [facility], bilateral knee replacement, CRISSY, umbilical inguinal hernia repairs, esperanza cataracts removed. "plate put in my neck"(states no limitation in neck movement), Past Anesthesia/Blood Transfusion Reactions: Motion Sickness Additional Past Anesthesia/Blood Transfusion Reaction / Comment(s): Pt has motion sickness only on a boat which isn't moving. Date of Last Stent Placement:: 2008 Past Psychological History: No Psychological Hx Reported Smoking Status: Former smoker Past Alcohol Use History: Rare Past Drug Use History: None Reported - Past Family History Mother Family Medical History: Cancer Additional Family Medical History / Comment(s): Mother of ovarian cancer at the age of 43yrs. General Exam - General Exam Comments Initial Comments: Physical Exam GENERAL: Patient is well-developed and well-nourished. Patient is nontoxic and well- hydrated and is in no distress. HENT: Normocephalic, Atraumatic. EYES: PERRL, EOMI PULMONARY: Unlabored respirations. No audible rales rhonchi or wheezing was noted. CARDIOVASCULAR: There is a regular rate and rhythm without any murmurs gallops or rubs. ABDOMEN: Soft and nontender with normal bowel sounds. SKIN: Skin is clear with no lesions or rashes and otherwise unremarkable. : Deferred NEUROLOGIC: Patient is alert and oriented x3. Moving all extremities spontaneously MUSCULOSKELETAL: Normal extremities with adequate strength and full range of motion. No lower extremity swelling or edema. No calf tenderness. PSYCHIATRIC: Normal psychiatric evaluation. Limitations: no limitations Course Vital Signs 08/13/19 08/13/19 08/13/19 04:12 05:58 06:52 Temperature 97.9 F 97.8 F Pulse Rate 54 L 53 L 51 L Respiratory 18 18 15 Rate Blood Pressure 161/68 121/50 142/69 O2 Sat by Pulse 98 98 97 Oximetry Chest Pain MDM - MDM Patient was seen and evaluated history is obtained from the patient and review of medical record 73-year-old male with known cardiac history who reports nightly chest pain is worse when he lays flat resolves with sitting up, has happened every night for at least a month In addition patient's been admitted 2 times her A. fib with RVR in the past month and is now on amiodarone and metoprolol On evaluation patient is not experiencing any chest pain, I suspect that his discomfort is related to GERD that is positional however we will obtain a workup EKG is nonischemic however sinus bradycardia has replaced his previous A. fib with RVR Patient resting comfortably throughout his stay in the emergency department reported that he was able to sleep comfortably in this bed because the head was elevated, states he is feeling better. Patient care was discussed with Dr. Centeno cardiology given that the patient has had persistent bradycardia throughout his stay in the emergency department, he agrees patient's chest pain is likely not related to cardiac ischemia given the reproducibility of it and that it occurs nightly. Recommends the patient decrease his amiodarone to 1 time daily and contact the cardiology office for follow-up. Disposition Clinical Impression: Atypical chest pain Disposition: HOME SELF-CARE Condition: Stable Additional Instructions: Decrease your Amiodarone to 1 time daily Call your bicycle repairman office tomorrow to establish follow up in the next week or so Return to the ER for any recurrent chest pain or new or concerning symptoms Make some changes to try to decrease acid reflux, did not eat within 2 hours before going to bed, sleep with the head of the bed elevated, avoid caffeine and spicy and greasy foods Is patient prescribed a controlled substance at d/c from ED?: No Referrals: Fabiana Arora MD [Primary Care Provider] - 1-2 days
[2019-08-13 04:48] LABS: ALT 20 U/L (4-49); AST 25 U/L (17-59); African American GFR (CKD) >90 (>60 ml/min/1.73 sqM); Albumin 4.1 g/dL (3.5-5.0); Alkaline Phosphatase 101 U/L (38-126); Anion Gap 9 mmol/L; Blood Urea Nitrogen 30 mg/dL (9-20); Calcium 8.8 mg/dL (8.4-10.2); Carbon Dioxide 23 mmol/L (22-30); Chloride 105 mmol/L (98-107); Glucose 147 mg/dL (74-99); Magnesium 2.1 mg/dL (1.6-2.3); Non-African American GFR(CKD) >90 (>60 ml/min/1.73 sqM); Potassium 3.7 mmol/L (3.5-5.1); Sodium 137 mmol/L (137-145); Total Bilirubin 0.3 mg/dL (0.2-1.3); Total Protein 6.8 g/dL (6.3-8.2)
[2019-08-13 04:49] LABS: INR 0.9 (<1.2); Prothrombin Time 9.8 sec (9.0-12.0)
--- NOTE | 2019-08-13 04:51 | XR ---
EXAMINATION TYPE: XR chest 2V DATE OF EXAM: 08/13/2019 COMPARISON: July 24, 2019 HISTORY: Chest pain TECHNIQUE: FINDINGS: There is no heart failure nor confluent pneumonic infiltrate. Costophrenic angles are clear . There is cardiac valve surgery. There are chest leads. There is cervical spine fusion surgery. IMPRESSION: No active cardiopulmonary disease. No change.
[2019-08-13 06:55] VITALS: BP 142/69; PULSE 51; RESP 15; TEMP 97.8
== END 2019-08-13 06:50 | disposition home or self-care (01) ==
LOC: EC 04:12
DX: R07.89 Other chest pain (principal); R00.1 Bradycardia, unspecified; I48.91 Unspecified atrial fibrillation; I25.10 Atherosclerotic heart disease of native coronary artery without angina pectoris; E78.5 Hyperlipidemia, unspecified; M19.90 Unspecified osteoarthritis, unspecified site; Z87.891 Personal history of nicotine dependence; Z88.0 Allergy status to penicillin; Z79.899 Other long term (current) drug therapy; Z95.5 Presence of coronary angioplasty implant and graft; Z96.653 Presence of artificial knee joint, bilateral
CPT/HCPCS: 36415; 71046; 80053; 83735; 83880; 84484; 85025; 85610; 85730; 93005; 99285

== ENCOUNTER 2020-12-26 07:04 | Observation (INO) | payer BC, MEDICARE ==
[2020-12-26] MEDS ORDERED: SODIUM CHLORIDE 0.9% 1,000 ML IV STA (07:18)
--- NOTE | 2020-12-26 07:22 | ED ---
General Adult HPI - General Chief complaint: Weakness Stated complaint: Near syncope Time Seen by Provider: 12/26/20 07:10 Source: patient, EMS, RN notes reviewed Mode of arrival: EMS Limitations: no limitations - History of Present Illness Initial comments: Patient is a pleasant 75-year-old male presenting to the emergency Department with near syncopal episode.Please use medication as discussed. Please follow-up with family doctor in the next 2 days of symptoms have not improved. Please return to emergency room if the symptoms increase or worsen or for any other concerns. Woke up this morning and has been feeling somewhat lightheaded. Symptoms worsened significantly when he was walking to the kitchen. Patient had to hold himself up on the counter. Symptoms were somewhat severe around 15 minutes. Patient states symptoms have slightly improved at this time however not resolved. No headache. Patient feels lightheaded. No spinning type sensation. No chest pain or dyspnea. No palpitations. No isolated area of weakness. No confusion. - Related Data Home Medications Medication Instructions Recorded Confirmed Atorvastatin Calcium [Lipitor] 10 mg PO HS 07/22/16 12/26/20 Multivitamins, Thera [Multivitamin 1 tab PO DAILY 07/08/19 12/26/20 (formulary)] [place]-3 Fatty Acids/Fish Oil [Fish 2 cap PO DAILY 07/08/19 12/26/20 Oil 1,000 mg Softgel] Ascorbic Acid [Vitamin C] 1,000 mg PO DAILY 12/26/20 12/26/20 Metoprolol Tartrate [Lopressor] 25 mg PO BID 12/26/20 12/26/20 Previous Rx's Medication Instructions Recorded Apixaban [Eliquis] 5 mg PO BID #60 tab 07/08/19 Losartan [Cozaar] 25 mg PO DAILY #0 07/08/19 Allergies Allergy/AdvReac Type Severity Reaction Status Date / Time Penicillins Allergy Unknown Verified 12/26/20 08:21 Review of Systems ROS Statement: Those systems with pertinent positive or pertinent negative responses have been documented in the HPI. ROS Other: All systems not noted in ROS Statement are negative. Constitutional: Denies: fever Eyes: Denies: eye pain ENT: Denies: ear pain Respiratory: Denies: cough Cardiovascular: Denies: chest pain Endocrine: Denies: fatigue Gastrointestinal: Denies: abdominal pain Genitourinary: Denies: dysuria Musculoskeletal: Denies: back pain Skin: Denies: rash Neurological: Reports: as per HPI Past Medical History Past Medical History: Atrial Fibrillation, Coronary Artery Disease (CAD), Hyperlipidemia, Osteoarthritis (OA) Additional Past Medical History / Comment(s): denies heart diseease, hx hypertension but pt states none now, "internal hemorrhoid" History of Any Multi-Drug Resistant Organisms: None Reported Past Surgical History: Heart Catheterization With Stent, Hernia Repair, Joint Replacement Additional Past Surgical History / Comment(s): ASD closure done at [facility], bilateral knee replacement, CRISSY, umbilical inguinal hernia repairs, esperanza cataracts removed. "plate put in my neck"(states no limitation in neck movement), Past Anesthesia/Blood Transfusion Reactions: Motion Sickness Additional Past Anesthesia/Blood Transfusion Reaction / Comment(s): Pt has motion sickness only on a boat which isn't moving. Date of Last Stent Placement:: 2008 Past Psychological History: No Psychological Hx Reported Smoking Status: Former smoker Past Alcohol Use History: Rare Past Drug Use History: None Reported - Past Family History Mother Family Medical History: Cancer Additional Family Medical History / Comment(s): Mother of ovarian cancer at the age of 43yrs. General Exam Limitations: no limitations General appearance: alert, in no apparent distress Head exam: Present: normocephalic Eye exam: Present: normal appearance, PERRL, EOMI ENT exam: Present: normal oropharynx Neck exam: Present: normal inspection Respiratory exam: Present: normal lung sounds bilaterally. Absent: chest wall tenderness Cardiovascular Exam: Present: bradycardia, irregular rhythm Expanded Peripheral pulses: 2+: Radial (R), Radial (L) GI/Abdominal exam: Present: soft. Absent: tenderness Neurological exam: Present: alert, oriented X3, CN II-XII intact. Absent: motor sensory deficit Expanded Neurological exam: Present: protecting the airway Speech: Present: fluid speech Motor strength exam: RUE: 5, LUE: 5, RLE: 5, LLE: 5 Eye Response: (4) open spontaneously Motor Response: (6) obeys commands Verbal Response: (5) oriented Psychiatric exam: Present: normal affect, normal mood Skin exam: Present: normal color Course Vital Signs 12/26/20 12/26/20 12/26/20 07:10 07:20 08:02 Temperature 97.6 F Pulse Rate 55 L Pulse Rate [ 50 L 53 L Deckhand Maintenance ] Pulse Rate [ 53 L Sitting] Pulse Rate [ 58 L Standing] Pulse Rate [ 53 L Supine] Respiratory 18 18 Rate Blood Pressure 128/77 Blood Pressure 116/65 [Sitting] Blood Pressure 112/70 [Standing] Blood Pressure 115/68 [Supine] O2 Sat by Pulse 99 Oximetry 12/26/20 08:30 Temperature Pulse Rate 47 L Pulse Rate [ Deckhand Maintenance ] Pulse Rate [ Sitting] Pulse Rate [ Standing] Pulse Rate [ Supine] Respiratory 14 Rate Blood Pressure 118/62 Blood Pressure [Sitting] Blood Pressure [Standing] Blood Pressure [Supine] O2 Sat by Pulse 97 Oximetry - Reevaluation(s) Reevaluation #1: 12/26/20 08:27 billing adjudicator shows sinus bradycardia with a rate of 46. Patient was placed on cardiac rehabilitation specialist to monitor for arrhythmias with symptoms of near-syncope. Patient reevaluated and resting comfortably in bed. Patient and family updated on results and plan. Dr. Simpson has been paged for admission covering for Dr. Randle. 12/26/20 09:45 Case was discussed with Dr. Lockwood, who will admit. EKG Findings - EKG Comments: EKG Findings:: Sinus bradycardia with a rate of 52. AK 124. QRS 104. QT 438. QTC 47. Normal axis. Normal QRS. No acute ST change. Premature atrial complexes Medical Decision Making - Lab Data Result diagrams: 12/26/20 07:20 12/26/20 07:20 Lab Results 12/26/20 12/26/20 12/26/20 Range/Units 07:20 07:20 07:20 WBC 7.5 (3.8-10.6) k/uL RBC 5.24 (4.30-5.90) m/uL Hgb 16.0 (13.0-17.5) gm/dL Hct 48.3 (39.0-53.0) % MCV 92.1 (80.0-100.0) fL MCH 30.5 (25.0-35.0) pg MCHC 33.1 (31.0-37.0) g/dL RDW 12.8 (11.5-15.5) % Plt Count 174 (150-450) k/uL MPV 7.6 Neutrophils % 60 % Lymphocytes % 28 % Monocytes % 6 % Eosinophils % 3 % Basophils % 1 % Neutrophils # 4.5 (1.3-7.7) k/uL Lymphocytes # 2.1 (1.0-4.8) k/uL Monocytes # 0.5 (0-1.0) k/uL Eosinophils # 0.2 (0-0.7) k/uL Basophils # 0.0 (0-0.2) k/uL PT 10.6 (9.0-12.0) sec INR 1.0 (<1.2) APTT 21.8 L (22.0-30.0) sec Sodium (137-145) mmol/L Potassium (3.5-5.1) mmol/L Chloride (98-107) mmol/L Carbon Dioxide (22-30) mmol/L Anion Gap mmol/L BUN (9-20) mg/dL Creatinine (0.66-1.25) mg/dL Est GFR (CKD-EPI)AfAm (>60 ml/min/1.73 sqM) Est GFR (CKD-EPI)NonAf (>60 ml/min/1.73 sqM) Glucose (74-99) mg/dL Plasma Lactic Acid Juan (0.7-2.0) mmol/L Calcium (8.4-10.2) mg/dL Magnesium (1.6-2.3) mg/dL Total Bilirubin (0.2-1.3) mg/dL AST (17-59) U/L ALT (4-49) U/L Alkaline Phosphatase (38-126) U/L Troponin I (0.000-0.034) ng/mL Total Protein (6.3-8.2) g/dL Albumin (3.5-5.0) g/dL TSH (0.465-4.680) mIU/L Free T4 (0.78-2.19) ng/dL Free T3 pg/mL (2.8-5.3) pg/ml Urine Color Yellow Urine Appearance Clear (Clear) Urine pH 5.0 (5.0-8.0) Ur Specific Ophiem 1.012 (1.001-1.035) Urine Protein Negative (Negative) Urine Glucose (UA) Negative (Negative) Urine Ketones Negative (Negative) Urine Blood Negative (Negative) Urine Nitrite Negative (Negative) Urine Bilirubin Negative (Negative) Urine Urobilinogen <2.0 (<2.0) mg/dL Ur Leukocyte Esterase Negative (Negative) 12/26/20 12/26/20 12/26/20 Range/Units 07:20 07:20 07:20 WBC (3.8-10.6) k/uL RBC (4.30-5.90) m/uL Hgb (13.0-17.5) gm/dL Hct (39.0-53.0) % MCV (80.0-100.0) fL MCH (25.0-35.0) pg MCHC (31.0-37.0) g/dL RDW (11.5-15.5) % Plt Count (150-450) k/uL MPV Neutrophils % % Lymphocytes % % Monocytes % % Eosinophils % % Basophils % % Neutrophils # (1.3-7.7) k/uL Lymphocytes # (1.0-4.8) k/uL Monocytes # (0-1.0) k/uL Eosinophils # (0-0.7) k/uL Basophils # (0-0.2) k/uL PT (9.0-12.0) sec INR (<1.2) APTT (22.0-30.0) sec Sodium 137 (137-145) mmol/L Potassium 4.4 (3.5-5.1) mmol/L Chloride 107 (98-107) mmol/L Carbon Dioxide 23 (22-30) mmol/L Anion Gap 7 mmol/L BUN 24 H (9-20) mg/dL Creatinine 0.66 (0.66-1.25) mg/dL Est GFR (CKD-EPI)AfAm >90 (>60 ml/min/1.73 sqM) Est GFR (CKD-EPI)NonAf >90 (>60 ml/min/1.73 sqM) Glucose 120 H (74-99) mg/dL Plasma Lactic Acid Juan 2.1 H* (0.7-2.0) mmol/L Calcium 9.0 (8.4-10.2) mg/dL Magnesium 2.1 (1.6-2.3) mg/dL Total Bilirubin 0.5 (0.2-1.3) mg/dL AST 28 (17-59) U/L ALT 17 (4-49) U/L Alkaline Phosphatase 80 (38-126) U/L Troponin I <0.012 (0.000-0.034) ng/mL Total Protein 6.3 (6.3-8.2) g/dL Albumin 3.8 (3.5-5.0) g/dL TSH 1.880 (0.465-4.680) mIU/L Free T4 0.85 (0.78-2.19) ng/dL Free T3 pg/mL 4.8 (2.8-5.3) pg/ml Urine Color Urine Appearance (Clear) Urine pH (5.0-8.0) Ur Specific Ophiem (1.001-1.035) Urine Protein (Negative) Urine Glucose (UA) (Negative) Urine Ketones (Negative) Urine Blood (Negative) Urine Nitrite (Negative) Urine Bilirubin (Negative) Urine Urobilinogen (<2.0) mg/dL Ur Leukocyte Esterase (Negative) - Radiology Data Radiology results: image reviewed (Chest x-ray reveals no acute process) Disposition Clinical Impression: Bradycardia, Near syncope Disposition: ADMITTED IP TO THIS HOSP Is patient prescribed a controlled substance at d/c from ED?: No Decision Time: 08:28
[2020-12-26 07:29] LABS: Basophils % (A) 1 %; Eosinophils # (A) 0.2 k/uL (0-0.7); Eosinophils % (A) 3 %; HCT 48.3 % (39.0-53.0); Lymphocytes # (A) 2.1 k/uL (1.0-4.8); Lymphocytes % (A) 28 %; MCH 30.5 pg (25.0-35.0); MCHC 33.1 g/dL (31.0-37.0); MCV 92.1 fL (80.0-100.0); Mean Platelet Volume 7.6; Monocytes # (A) 0.5 k/uL (0-1.0); Monocytes % (A) 6 %; Neutrophils # (A) 4.5 k/uL (1.3-7.7); Neutrophils % (A) 60 %; Platelet Count 174 k/uL (150-450); RBC 5.24 m/uL (4.30-5.90); RDW 12.8 % (11.5-15.5); WBC 7.5 k/uL (3.8-10.6)
[2020-12-26 07:43] LABS: Prothrombin Time 10.6 sec (9.0-12.0)
--- NOTE | 2020-12-26 07:44 | XR ---
EXAMINATION TYPE: XR chest 2V DATE OF EXAM: 12/26/2020 COMPARISON: Chest x-ray August 13, 2019 HISTORY: Weakness and hypotension. TECHNIQUE: Frontal and lateral views of the chest are obtained. FINDINGS: There is no suspicious new focal air space opacity, pleural effusion, or pneumothorax seen . The cardiac silhouette size is stable and within normal limits. Atrial septal closure device redem onstrated. Surgical change to the cervical spine is partially imaged similar to prior. IMPRESSION: No acute cardiopulmonary process. No significant change from prior.
[2020-12-26 07:52] LABS: ALT 17 U/L (4-49); AST 28 U/L (17-59); African American GFR (CKD) >90 (>60 ml/min/1.73 sqM); Albumin 3.8 g/dL (3.5-5.0); Alkaline Phosphatase 80 U/L (38-126); Anion Gap 7 mmol/L; Blood Urea Nitrogen 24 mg/dL (9-20); Carbon Dioxide 23 mmol/L (22-30); Chloride 107 mmol/L (98-107); Glucose 120 mg/dL (74-99); Magnesium 2.1 mg/dL (1.6-2.3); Non-African American GFR(CKD) >90 (>60 ml/min/1.73 sqM); Potassium 4.4 mmol/L (3.5-5.1); Sodium 137 mmol/L (137-145); Total Bilirubin 0.5 mg/dL (0.2-1.3); Total Protein 6.3 g/dL (6.3-8.2)
[2020-12-26 08:02] LABS: Partial Thromboplastin Time 21.8 sec (22.0-30.0)
[2020-12-26 08:10] LABS: T4, Free (Free Thyroxine) 0.85 ng/dL (0.78-2.19)
[2020-12-26 08:21] LABS: Appearance,Urine Clear (Clear); Bilirubin,Urine Negative (Negative); Blood,Urine Negative (Negative); Color,Urine Yellow; Glucose,Urine (UA) Negative (Negative); Ketones,Urine Negative (Negative); Leukocyte Esterase,Urine Negative (Negative); Nitrite,Urine Negative (Negative); Protein,Urine Negative (Negative); Specific Gravity,Urine 1.012 (1.001-1.035); Urobilinogen,Urine <2.0 mg/dL (<2.0)
[2020-12-26] MEDS ORDERED: NALOXONE 0.4 MG/ML 1 ML VIAL IV PRN (08:28)
[2020-12-26] MEDS: SODIUM CHLORIDE 0.9% 1,000 ML IV SCH ×2 (08:31→22:31)
--- NOTE | 2020-12-26 10:58 | P.CRDCN ---
History of Present Illness History of present illness: HISTORY OF PRESENTING ILLNESS This is a pleasant 75-year-old male past medical history significant for coronary artery disease status post PCI to the LAD 2008, paroxysmal atrial fibrillation maintained on Eliquis, ASD status post percutaneous closure 2010, hypertension and dyslipidemia. He follows in the office with Dr. Small. We have been asked to see in consultation for bradycardia and near syncope. He states for the previous 2 nights he has woken up in the middle of the night diaphoretic. So much so that it is soaked through his shirt and he's had to get up and change. This morning he woke up and was attempting to use the bathroom when he started feeling extremely lightheaded. He thought he was going to pass out and had to call his to assist him to not fall. EMS was called and on their arrival according to the patient is heart rate was 40. He was transported to the hospital. Telemetry tracings from EMS revealed he was in atrial fibrillation. Heart rates were in the 50-70 range. On arrival to the emergency department an EKG was obtained revealing sinus bradycardia with PACs heart rate of 52. The patient currently takes metoprolol 25 mg twice a day and states he did take it last night as prescribed. He is currently resting on stretcher in the emergency department in no acute distress heart rate is approximately 49-55. He denies symptoms of dizziness at this time. He has no symptoms of chest discomfort or shortness of breath. Chest x-ray is negative for an acute cardiopulmonary process. Laboratory data reviewed, CBC unremarkable, sodium 137, potassium 4.4, creatinine 0.66, lactic acid 2.1, magnesium 2.1, cardiac enzymes negative 1, TSH 1.88 and free T4 0.85. Current daily cardiac medications include Lopressor 25 mg twice a day, losartan 25 mg daily, Eliquis 5 mg twice a day and atorvastatin 10 mg daily. Most recent echocardiogram obtained 06/2019 revealed preserved LV systolic function with ejection fraction greater than 55%. REVIEW OF SYSTEMS At the time of my exam: CONSTITUTIONAL: Denies fever or chills. CARDIOVASCULAR: Denies chest pain, shortness of breath, orthopnea, PND or palpitations. RESPIRATORY: Denies cough. GASTROINTESTINAL: Denies abdominal pain, diarrhea, constipation, nausea or vomiting. MUSCULOSKELETAL: Denies myalgias. NEUROLOGIC: Denies numbness, tingling, headacbe or weakness. ENDOCRINE: Denies fatigue, weight change, polydipsia or polyurina. GENITOURINARY: Denies burning, hematuria or urgency with micturation. HEMATOLOGIC: Denies history of anemia or bleeding. PHYSICAL EXAMINATION Blood pressure 125/71 heart rate 55 afebrile and maintaining oxygen saturation on room air. CONSTITUTIONAL: No apparent distress. HEENT: Head is normocephalic. Pupils are equal, round. Sclerae anicteric. Mucous membranes of the mouth are moist. No JVD. No carotid bruit. CHEST EXAMINATION: Lungs are clear to auscultation. No chest wall tenderness is noted on palpation or with deep breathing. HEART EXAMINATION: Irregular rate and rhythm. S1, S2 heard. No murmurs, gallops or rub. ABDOMEN: Soft, nontender. Positive bowel sounds. EXTREMITIES: 2+ peripheral pulses, trace bilateral lower extremity edema and no calf tenderness. NEUROLOGIC EXAMINATION: Patient is awake, alert and oriented x3. ASSESSMENT Tachybradycardia syndrome Paroxysmal atrial fibrillation on Eliquis, currently in sinus mechanism Near syncope Hypertension Dyslipidemia Coronary artery disease status post PCI of LAD 2008 Lactic acidosis PLAN Hold all AV leroy blocking agents. Repeat 2-D echocardiogram and Doppler study to assess cardiac structure and function. Ongoing telemetry monitoring. Possibly he is going in and out of afib and having significant post-conversion pauses causing the night sweats. He will require outpatient heart monitoring upon discharge in the form of event monitor vs loop recorder. The possibility of pacemaker discussed with the patient and family in the event his rates do no improve. Further recommendations to follow based upon clinical course. Thank you kindly for this consultation. Nurse Practitioner note has been reviewed, I agree with a documented findings and plan of care. Patient was seen and examined. Past Medical History Past Medical History: Atrial Fibrillation, Coronary Artery Disease (CAD), Hyperlipidemia, Osteoarthritis (OA) Additional Past Medical History / Comment(s): denies heart diseease, hx hyperte nsion but pt states none now, "internal hemorrhoid" History of Any Multi-Drug Resistant Organisms: None Reported Past Surgical History: Heart Catheterization With Stent, Hernia Repair, Joint Replacement Additional Past Surgical History / Comment(s): ASD closure done at [facility], bilateral knee replacement, CRISSY, umbilical inguinal hernia repairs, esperanza cataracts removed. "plate put in my neck"(states no limitation in neck moveme nt), Past Anesthesia/Blood Transfusion Reactions: Motion Sickness Additional Past Anesthesia/Blood Transfusion Reaction / Comment(s): Pt has motion sickness only on a boat which isn't moving. Date of Last Stent Placement:: 2008 Past Psychological History: No Psychological Hx Reported Smoking Status: Former smoker Past Alcohol Use History: Rare Past Drug Use History: None Reported - Past Family History Mother Family Medical History: Cancer Additional Family Medical History / Comment(s): Mother of ovarian cancer at the age of 43yrs. Medications and Allergies Home Medications Medication Instructions Recorded Confirmed Type Atorvastatin Calcium [Lipitor] 10 mg PO HS 07/22/16 12/26/20 History Apixaban [Eliquis] 5 mg PO BID #60 tab 07/08/19 12/26/20 Rx Losartan [Cozaar] 25 mg PO DAILY #0 07/08/19 12/26/20 Rx Multivitamins, Thera [Multivitamin 1 tab PO DAILY 07/08/19 12/26/20 History (formulary)] [place]-3 Fatty Acids/Fish Oil [Fish 2 cap PO DAILY 07/08/19 12/26/20 History Oil 1,000 mg Softgel] Ascorbic Acid [Vitamin C] 1,000 mg PO DAILY 12/26/20 12/26/20 History Metoprolol Tartrate [Lopressor] 25 mg PO BID 12/26/20 12/26/20 History Allergies Allergy/AdvReac Type Severity Reaction Status Date / Time Penicillins Allergy Unknown Verified 12/26/20 08:21 Physical Exam Vitals: Vital Signs Temp Pulse Pulse Pulse Pulse Pulse Resp 12/26/20 08:30 47 L 14 12/26/20 08:02 53 L 53 L 58 L 53 L 12/26/20 07:20 50 L 18 12/26/20 07:10 97.6 F 55 L 18 BP BP BP BP Pulse Ox 12/26/20 08:30 118/62 97 12/26/20 08:02 116/65 112/70 115/68 12/26/20 07:20 12/26/20 07:10 128/77 99 Intake and Output 12/25/20 12/26/20 12/26/20 22:59 06:59 14:59 Other: Weight 95.254 kg Results 12/26/20 07:20 12/26/20 07:20 Cardiac Enzymes 12/26/20 12/26/20 Range/Units 07:20 07:20 AST 28 (17-59) U/L Troponin I <0.012 (0.000-0.034) ng/mL Coagulation 12/26/20 Range/Units 07:20 PT 10.6 (9.0-12.0) sec APTT 21.8 L (22.0-30.0) sec CBC 12/26/20 Range/Units 07:20 WBC 7.5 (3.8-10.6) k/uL RBC 5.24 (4.30-5.90) m/uL Hgb 16.0 (13.0-17.5) gm/dL Hct 48.3 (39.0-53.0) % Plt Count 174 (150-450) k/uL Comprehensive Metabolic Panel 12/26/20 Range/Units 07:20 Sodium 137 (137-145) mmol/L Potassium 4.4 (3.5-5.1) mmol/L Chloride 107 (98-107) mmol/L Carbon Dioxide 23 (22-30) mmol/L BUN 24 H (9-20) mg/dL Creatinine 0.66 (0.66-1.25) mg/dL Glucose 120 H (74-99) mg/dL Calcium 9.0 (8.4-10.2) mg/dL AST 28 (17-59) U/L ALT 17 (4-49) U/L Alkaline Phosphatase 80 (38-126) U/L Total Protein 6.3 (6.3-8.2) g/dL Albumin 3.8 (3.5-5.0) g/dL Current Medications Generic Name Dose Route Start Last Admin Trade Name Freq PRN Reason Stop Dose Admin Sodium Chloride 1,000 mls @ 75 mls/hr 12/26/20 07:18 12/26/20 07:24 Saline 0.9% IV 12/26/20 20:37 75 mls/hr .[id number] STA Administration Sodium Chloride 1,000 mls @ 75 mls/hr 12/26/20 08:30 12/26/20 08:31 Saline 0.9% IV Not Given .[id number] OELNA Naloxone HCl 0.2 mg 12/26/20 08:28 Naloxone 0.4 Mg/Ml 1 Ml Vial IV Q2M PRN Opioid Reversal Intake and Output 12/25/20 12/26/20 12/26/20 22:59 06:59 14:59 Other: Weight 95.254 kg Patient Weight 12/27/20 06:59 Weight 95.254 kg 12/26/20 07:20 12/26/20 07:20
[2020-12-26] MEDS: APIXABAN 5 MG TAB PO SCH ×2 (12:40→22:31)
--- NOTE | 2020-12-26 18:31 | ECHOF ---
Referral Reason:near syncope MEASUREMENTS -------- HEIGHT: 175.3 cm WEIGHT: 95.3 kg BP: 125/71 RVIDd: 4.0 cm (< 3.3) IVSd: 1.3 cm (0.6 - 1.1) LVIDd: 5.5 cm (3.9 - 5.3) LVPWd: 1.2 cm (0.6 - 1.1) IVSs: 2.0 cm LVIDs: 2.8 cm LVPWs: 2.2 cm LAESV Index (A-L): 31.05 ml/m Ao Diam: 2.8 cm (2.0 - 3.7) AV Cusp: 2.1 cm (1.5 - 2.6) LA Diam: 4.8 cm (2.7 - 3.8) MV EXCURSION: 21.441 mm (> 18.000) MV EF SLOPE: 84 mm/s (70 - 150) EPSS: 0.3 cm MV E Phuc: 0.64 m/s MV DecT: 159 ms MV A Phuc: 0.48 m/s MV E/A Ratio: 1.32 RAP: 20.00 mmHg RVSP: 50.12 mmHg FINDINGS -------- Sinus rhythm. This was a technically adequate study. The left ventricular size is normal. There is mild concentric left ventricular hypertrophy. Overa ll left ventricular systolic function is normal with, an EF between 55 - 60 %. The right ventricle is mild to moderately enlarged. LA is midly dilated 29-33ml/m2. The right atrium is mildly enlarged. Interatrial and interventricular septum intact. Aortic valve is trileaflet and is mildly thickened. The mitral valve leaflets are mildly thickened. Mild mitral regurgitation is present. Mild tricuspid regurgitation present. There is moderate pulmonary hypertension. The right ventric ular systolic pressure, as measured by Doppler, is 50.12mmHg. There is no pulmonic regurgitation present. The aortic root size is normal. The inferior vena cava is mildly dilated. There is no pericardial effusion. CONCLUSIONS -------- 1. There is mild concentric left ventricular hypertrophy. 2. Overall left ventricular systolic function is normal with, an EF between 55 - 60 %. 3. The right ventricle is mild to moderately enlarged. 4. LA is midly dilated 29-33ml/m2. 5. The right atrium is mildly enlarged. 6. Aortic valve is trileaflet and is mildly thickened. 7. Mild mitral regurgitation is present. 8. Mild tricuspid regurgitation present. 9. There is moderate pulmonary hypertension. SPANISH SPEAKING BABYSITTER: Veronika Frausto RDCS
[2020-12-26] MEDS ORDERED: ATORVASTATIN 10 MG TAB PO SCH (21:00)
[2020-12-27] MEDS: APIXABAN 5 MG TAB PO SCH (08:29)
[2020-12-27 08:38] VITALS: TEMP 97.8
[2020-12-27] MEDS ORDERED: LOSARTAN 25 MG TAB PO SCH (09:00)
--- NOTE | 2020-12-27 09:37 | P.PN ---
Subjective Progress Note Date: 12/27/20 HISTORY OF PRESENT ILLNESS: This is a pleasant 75-year-old male past medical history significant for coronary artery disease status post PCI to the LAD 2008, paroxysmal atrial fibrillation maintained on Eliquis, ASD status post percutaneous closure 2010, hypertension and dyslipidemia. He follows in the office with Dr. Small. We have been asked to see in consultation for bradycardia and near syncope. He states for the previous 2 nights he has woken up in the middle of the night diaphoretic. So much so that it is soaked through his shirt and he's had to get up and change. This morning he woke up and was attempting to use the bathroom when he started feeling extremely lightheaded. He thought he was going to pass out and had to call his to assist him to not fall. EMS was called and on their arrival according to the patient is heart rate was 40. He was transported to the hospital. Telemetry tracings from EMS revealed he was in atrial fibrillation. Heart rates were in the 50-70 range. On arrival to the emergency department an EKG was obtained revealing sinus bradycardia with PACs heart rate of 52. The patient currently takes metoprolol 25 mg twice a day and states he did take it last night as prescribed. He is currently resting on stretcher in the emergency department in no acute distress heart rate is approximately 49-55. He denies symptoms of dizziness at this time. He has no symptoms of chest discomfort or shortness of breath. Chest x-ray is negative for an acute cardiopulmonary process. Laboratory data reviewed, CBC unremarkable, sodium 137, potassium 4.4, creatinine 0.66, lactic acid 2.1, magnesium 2.1, cardiac enzymes negative 1, TSH 1.88 and free T4 0.85. Current daily cardiac medications include Lopressor 25 mg twice a day, losartan 25 mg daily, Eliquis 5 mg twice a day and atorvastatin 10 mg daily. Most recent echocardiogram obtained 06/2019 revealed preserved LV systolic function with ejection fraction greater than 55%. 12/27/2020 Patient examined this morning at the bedside. Patient denies chest pain or pressure. Denies shortness of breath. He is maintaining sinus mechanism on telemetry. Heart rate in the 40-50s. He has been ambulating in his room. He denies any dizziness or lightheadedness. Denies any further episodes of diaphoresis. Blood pressure 138/97. PHYSICAL EXAM: VITAL SIGNS: Reviewed. GENERAL: Well-developed in no acute distress. NECK: Supple. No JVD or thyromegaly LUNGS: Respirations even and unlabored. Lungs essentially clear to auscultation bilaterally. HEART: Regular rate and rhythm. S1 and S2 heard. EXTREMITIES: Normal range of motion. No clubbing or cyanosis. Peripheral pulses intact. No lower extremity edema ASSESSMENT: Tachybradycardia syndrome Paroxysmal atrial fibrillation on Eliquis, currently in sinus mechanism Near syncope Hypertension Dyslipidemia Coronary artery disease status post PCI of LAD 2009 Lactic acidosis PLAN: Continue to hold metoprolol Patient may be discharged home today from a cardiac standpoint He is set up to receive an event monitor for 30 days at the office today when he is discharged from the hospital Patient to follow up with Dr. Small Nurse practitioner note has been reviewed by physician. Signing provider agrees with the documented findings, assessment, and plan of care. Objective - Vital Signs Vital signs: Vital Signs Temp 97.8 F 12/27/20 07:00 Pulse 52 L 12/27/20 07:00 Resp 16 12/27/20 07:00 BP 138/97 12/27/20 07:00 Pulse Ox 97 12/27/20 07:00 Intake & Output 12/26/20 12/27/20 12/27/20 18:59 06:59 18:59 Weight 95.254 kg Other: Voiding Method Toilet # Voids 2 1 - Labs CBC & Chem 7: 12/26/20 07:20 12/26/20 07:20
[2020-12-27 10:12] LABS: Basophils # (A) 0.04 X 10*3/uL (0.00-0.10); Basophils % (A) 0.5 %; Eosinophils # (A) 0.22 X 10*3/uL (0.04-0.35); Eosinophils % (A) 2.9 %; HCT 41.2 % (39.6-50.0); HGB 13.8 g/dL (13.0-17.0); Lymphocytes # (A) 2.37 X 10*3/uL (0.90-5.00); Lymphocytes % (A) 31.4 %; MCH 31.3 pg (27.0-32.0); MCHC 33.5 g/dL (32.0-37.0); MCV 93.4 fL (80.0-97.0); Mean Platelet Volume 10.4 fL (9.5-12.2); Monocytes # (A) 0.66 X 10*3/uL (0.20-1.00); Monocytes % (A) 8.8 %; Neutrophils % (A) 55.7 %; Platelet Count 160 X 10*3/uL (140-440); RBC 4.41 X 10*6/uL (4.40-5.60); WBC 7.54 X 10*3/uL (4.50-10.00)
--- NOTE | 2020-12-27 11:14 | P.HPIM ---
History of Present Illness this is a pleasant 75 yo M with past medical history of paroxysmal atrial fibrillation, coronary artery disease status post PCI to the LAD in 2019, hyperlipidemia Presents today with generalized weakness, associated with some lightheadednes associated with sweating during the night and dizziness with walking like he was about to pass out. but no chest pain or dyspnea no abdominal pain or urinary complaints. No fever Vitals on admission looks stable. However he is developing a bradycardia 47-56. Labs including CBC, BMP, liver enzymes are unremarkable. TSH is normal at 1.8, free T4 is normal at 0.8, free T3 is normal at 4.8. Troponins 2 are negative with less than 0.012. Lactic acid is slightly elevated at 2.1. EKG shows sinus bradycardia with tic PAC chest x-ray: No acute process. In the emergency room he was started on normal saline at 75 mL/h Director Of Vendor Management recommended to hold AV leroy blocking agents and check echocardiogram with telemetry Director Of Vendor Management also recommend an event monitors/loop recorder possible pacemaker if no improvement Review of Systems CONSTITUTIONAL: No fever, no malaise, no fatigue. HEENT: No recent visual problems or hearing problems. Denied any sore throat. CARDIOVASCULAR: No orthopnea, PND, no palpitations, no syncope. PULMONARY: No shortness of breath, no cough, no hemoptysis. GASTROINTESTINAL: No diarrhea, no nausea, no vomiting, no abdominal pain. Normoactive bowel sounds. NEUROLOGICAL: No headaches, no weakness, no numbness. HEMATOLOGICAL: Denies any bleeding or petechiae. GENITOURINARY: Denies any burning micturition, frequency, or urgency. MUSCULOSKELETAL/RHEUMATOLOGICAL: Denies any joint pain, swelling, or any muscle pain. ENDOCRINE: Denies any polyuria or polydipsia. Past Medical History Past Medical History: Atrial Fibrillation, Coronary Artery Disease (CAD), Hyperlipidemia, Osteoarthritis (OA) Additional Past Medical History / Comment(s): denies heart diseease, hx hypertension but pt states none now, "internal hemorrhoid" History of Any Multi-Drug Resistant Organisms: None Reported Past Surgical History: Heart Catheterization With Stent, Hernia Repair, Joint Replacement Additional Past Surgical History / Comment(s): ASD closure done at [facility], bilateral knee replacement, CRISSY, umbilical inguinal hernia repairs, esperanza cataracts removed. "plate put in my neck"(states no limitation in neck movement), Past Anesthesia/Blood Transfusion Reactions: Motion Sickness Additional Past Anesthesia/Blood Transfusion Reaction / Comment(s): Pt has motion sickness only on a boat which isn't moving. Date of Last Stent Placement:: 2008 Past Psychological History: No Psychological Hx Reported Smoking Status: Former smoker Past Alcohol Use History: Rare Past Drug Use History: None Reported - Past Family History Mother Family Medical History: Cancer Additional Family Medical History / Comment(s): Mother of ovarian cancer at the age of 43yrs. Medications and Allergies Home Medications Medication Instructions Recorded Confirmed Type Atorvastatin Calcium [Lipitor] 10 mg PO HS 07/22/16 12/26/20 History Apixaban [Eliquis] 5 mg PO BID #60 tab 07/08/19 12/26/20 Rx Losartan [Cozaar] 25 mg PO DAILY #0 07/08/19 12/26/20 Rx Multivitamins, Thera [Multivitamin 1 tab PO DAILY 07/08/19 12/26/20 History (formulary)] Meldrim-3 Fatty Acids/Fish Oil [Fish 2 cap PO DAILY 07/08/19 12/26/20 History Oil 1,000 mg Softgel] Ascorbic Acid [Vitamin C] 1,000 mg PO DAILY 12/26/20 12/26/20 History Metoprolol Tartrate [Lopressor] 25 mg PO BID 12/26/20 12/26/20 History Allergies Allergy/AdvReac Type Severity Reaction Status Date / Time Penicillins Allergy Unknown Verified 12/26/20 08:21 Physical Exam Vitals: Vital Signs Temp Pulse Pulse Pulse Pulse Pulse Resp 12/26/20 11:51 97.8 F 50 L 18 12/26/20 11:00 53 L 20 12/26/20 10:30 56 L 16 12/26/20 10:00 55 L 18 12/26/20 09:30 49 L 14 12/26/20 09:00 47 L 18 12/26/20 08:30 47 L 14 12/26/20 08:02 53 L 53 L 58 L 53 L 12/26/20 07:20 50 L 18 12/26/20 07:10 97.6 F 55 L 18 BP BP BP BP BP Pulse Ox 12/26/20 11:51 138/74 97 12/26/20 11:00 114/67 99 12/26/20 10:30 103/80 99 08/05/21 10:00 125/71 98 12/26/20 09:30 105/66 98 12/26/20 09:00 108/57 97 12/26/20 08:30 118/62 97 12/26/20 08:02 116/65 112/70 115/68 12/26/20 07:20 12/26/20 07:10 128/77 99 Intake and Output 12/25/20 12/26/20 12/26/20 22:59 06:59 14:59 Other: Weight 95.254 kg GENERAL: The patient is alert and oriented x3, not in any acute distress. Well developed, well nourished. HEENT: Pupils are round and equally reacting to light. EOMI. No scleral icterus. No conjunctival pallor. Normocephalic, atraumatic. No pharyngeal erythema. No thyromegaly. CARDIOVASCULAR: S1 and S2 present. No murmurs, rubs, or gallops. PULMONARY: Chest is clear to auscultation, no wheezing or crackles. ABDOMEN: Soft, nontender, nondistended, normoactive bowel sounds. No palpable organomegaly. MUSCULOSKELETAL: No joint swelling or deformity. EXTREMITIES: No cyanosis, clubbing, or pedal edema. NEUROLOGICAL: Gross neurological examination did not reveal any focal deficits. SKIN: No rashes. No petechiae Results CBC & Chem 7: 12/27/20 05:56 12/26/20 07:20 Labs: Abnormal Lab Results - Last 24 Hours (Table) 12/26/20 12/26/20 12/26/20 Range/Units 07:20 07:20 07:20 APTT 21.8 L (22.0-30.0) sec BUN 24 H (9-20) mg/dL Glucose 120 H (74-99) mg/dL Plasma Lactic Acid Juan 2.1 H* (0.7-2.0) mmol/L Assessment and Plan Assessment: Presyncope tachycardia bradycardia syndrome Paroxysmal l fibrillation History of coronary artery disease status post PCI to the LAD in 2019 Hyperlipidemia Osteoarthritis Plan: This is a pleasant 75 years old male who presents with generalized weakness a We'll do serial troponin metoprolol on hold Cardiology consult Labs and medication were reviewed.. Continue same treatment. Continue with symptomatic treatment. Resume home medication. Monitor lytes and vitals. DVT and GI prophylaxis. Further recommendations depends on the clinical course of the patient DVT prophylaxis: Eliquis GI Prophylaxis: Pepcid PT/OT: Pending Prognosis is guarded
[2020-12-27 12:12] LABS: African American GFR (CKD) 102.7 (60.0-200.0); Albumin 3.7 g/dL (3.80-4.90); Albumin/Globulin Ratio 1.76 (1.60-3.17); Anion Gap 8.7 mmol/L (4.00-12.00); BUN/Creat Ratio 27.5 Ratio (12.00-20.00); Calcium 8.4 mg/dL (8.7-10.3); Carbon Dioxide 26.3 mmol/L (21.6-31.8); Globulin 2.1 g/dL (1.6-3.3); Non-African American GFR(CKD) 88.6 (60.0-200.0); Potassium 4.4 mmol/L (3.5-5.5); Total Bilirubin 0.6 mg/dL (0.3-1.2); Total Protein 5.8 g/dL (6.2-8.2)
[2020-12-27 14:14] VITALS: BP 112/65; RESP 18
[2020-12-27 14:54] VITALS: PULSE 56
--- NOTE | 2020-12-27 16:19 | P.DS ---
Providers Date of admission: 12/26/20 08:33 Expected date of discharge: 12/27/20 Attending physician: Manish Simpson Consults: 12/26/20 08:29 Consult Physician Urgent Consulting Provider: Danny Lemus Consult Reason/Comments: bradycardia, near syncope Do you want consulting provider notified?: Yes Primary care physician: Fabiana Arora Hospital Course: Final diagnosis Presyncope tachycardia bradycardia syndrome Paroxysmal atrial fibrillation on Eliquis History of coronary artery disease status post PCI to the LAD in 2019 Hyperlipidemia Osteoarthritis DVT prophylaxis GI prophylaxis Full code Discharge disposition Patient is being discharged in a stable condition with guarded prognosis to home. Patient will follow-up with Dr. Fabiana Arora in the outpatient setting upon discharge. Patient is to also follow-up with Dr Small cardiology in one week. Patient instructed to continue to hold metoprolol until cardiology follow-up and will have an event monitor placed on discharge. Total time taken is greater than 35 minutes. Hospital course This is a pleasant 75 yo M with past medical history of paroxysmal atrial fibrillation, coronary artery disease status post PCI to the LAD in 2019, hyperlipidemia Presents today with generalized weakness, associated with some lightheadednes associated with sweating during the night and dizziness with walking like he was about to pass out. but no chest pain or dyspnea no abdominal pain or urinary complaints. No fever Vitals on admission looks stable. However he is developing a bradycardia 47-56. Labs including CBC, BMP, liver enzymes are unremarkable. TSH is normal at 1.8, free T4 is normal at 0.8, free T3 is normal at 4.8. Troponins 2 are negative with less than 0.012. Lactic acid is slightly elevated at 2.1. EKG shows sinus bradycardia with tic PAC chest x-ray: No acute process. In the emergency room he was started on normal saline at 75 mL/h Air Sealing Technician recommended to hold AV leroy blocking agents and check echocardiogram with telemetry Air Sealing Technician also recommend an event monitors/loop recorder possible pacemaker if no improvement 12/27/2020 Patient is seen in follow-up this morning with no acute overnight issues. Patient currently walking up and down the halls with no dizziness or feelings of syncope or passing out noted. Patient continues to be bradycardic and metoprolol on hold. Patient will need an event monitor placed on discharge and instructed to follow-up with Dr. be ready his primary poultry processor outpatient. Patient also instructed to follow-up with artillery specialist and primary care provider on discharge as patient had a recent MRI in the outpatient setting and was to follow-up with an appointment yesterday morning with a artillery specialist although was brought to the ER for this episode of syncope. Patient underwent 2-D echo showing overall left ventricular systolic function is normal with an EF of 55-60% with some mild mitral and tricuspid regurgitation present along with moderate pulmonary hypertension noted. Currently no reports of chest pain, shortness of breath, or palpitations. Patient is afebrile. No reports of nausea or vomiting and patient is tolerating diet. Patient is requesting to go home and states he feels well. Patient will be discharged home today. GENERAL: The patient is alert and oriented x3, not in any acute distress. Well developed, well nourished. HEENT: Pupils are round and equally reacting to light. EOMI. No scleral icterus. No conjunctival pallor. Normocephalic, atraumatic. No pharyngeal erythema. No thyromegaly. CARDIOVASCULAR: S1 and S2 present. No murmurs, rubs, or gallops. PULMONARY: Chest is clear to auscultation, no wheezing or crackles. ABDOMEN: Soft, nontender, nondistended, normoactive bowel sounds. No palpable organomegaly. MUSCULOSKELETAL: No joint swelling or deformity. EXTREMITIES: No cyanosis, clubbing, or pedal edema. NEUROLOGICAL: Gross neurological examination did not reveal any focal deficits. SKIN: No rashes. No petechiae On exam vital signs are stable. Cardio S1, S2 are muffled. Respiratory system shows diminished breath sounds at the bases with no wheezing or rhonchi noted. Abdomen is soft and obese, and nontender. Nervous system shows no focal deficits. Please refer to medication reconciliation sheet for a list of medications. Patient Condition at Discharge: Stable Plan - Discharge Summary New Discharge Prescriptions: Continue Atorvastatin Calcium [Lipitor] 10 mg PO HS Whitman-3 Fatty Acids/Fish Oil [Fish Oil 1,000 mg Softgel] 2 cap PO DAILY Multivitamins, Thera [Multivitamin (formulary)] 1 tab PO DAILY Apixaban [Eliquis] 5 mg PO BID #60 tab Losartan [Cozaar] 25 mg PO DAILY #0 Ascorbic Acid [Vitamin C] 1,000 mg PO DAILY Discontinued Metoprolol Tartrate [Lopressor] 25 mg PO BID Discharge Medication List Atorvastatin Calcium [Lipitor] 10 mg PO HS 07/22/16 [History] Apixaban [Eliquis] 5 mg PO BID #60 tab 07/08/19 [Rx] Losartan [Cozaar] 25 mg PO DAILY #0 07/08/19 [Rx] Multivitamins, Thera [Multivitamin (formulary)] 1 tab PO DAILY 07/08/19 [History] Whitman-3 Fatty Acids/Fish Oil [Fish Oil 1,000 mg Softgel] 2 cap PO DAILY 07/08/19 [History] Ascorbic Acid [Vitamin C] 1,000 mg PO DAILY 12/26/20 [History] Follow up Appointment(s)/Referral(s): Merlyn Small MD [Family Provider] - 1 Week (january 16 2pm) Fabiana Arora MD [Primary Care Provider] - 1-2 days Patient Instructions/Handouts: A-fib (Atrial Fibrillation) (GEN), Bradycardia (GEN) Activity/Diet/Wound Care/Special Instructions: Will need an event monitor on discharge Activity Limited until follow-up follow up with your poultry processor Dr. Small outpatient Continue to hold metoprolol Continue heart healthy diet Follow-up with primary care provider on discharge Follow-up with artillery specialist and primary care provider in regards to MRI findings done outpatient Discharge Disposition: HOME SELF-CARE
[2020-12-27] MEDS ORDERED: FAMOTIDINE 20 MG/2 ML VIAL IV SCH (21:00)
== END 2020-12-27 14:37 | disposition home or self-care (01) ==
LOC: EC 07:04 → 6NMEDSUR 08:33
PROVIDERS: ADMIT Hospitalist; ATTEND Hospitalist
DX: I49.5 Sick sinus syndrome (principal); E87.2 Acidosis; I48.0 Paroxysmal atrial fibrillation; I27.20 Pulmonary hypertension, unspecified; I49.1 Atrial premature depolarization; I08.1 Rheumatic disorders of both mitral and tricuspid valves; E78.5 Hyperlipidemia, unspecified; I25.10 Atherosclerotic heart disease of native coronary artery without angina pectoris; I10 Essential (primary) hypertension; M19.90 Unspecified osteoarthritis, unspecified site; K64.8 Other hemorrhoids; Z79.899 Other long term (current) drug therapy; Z79.01 Long term (current) use of anticoagulants; Z88.0 Allergy status to penicillin; Z87.74 Personal history of (corrected) congenital malformations of heart and circulatory system; Z96.653 Presence of artificial knee joint, bilateral; Z98.42 Cataract extraction status, left eye; Z98.41 Cataract extraction status, right eye; Z95.5 Presence of coronary angioplasty implant and graft; Z98.890 Other specified postprocedural states; Z87.891 Personal history of nicotine dependence; Z80.41 Family history of malignant neoplasm of ovary
CPT/HCPCS: 96361 ×3; 96360; 99285; 36415; 93005; 93306; 84439; 84481; 80053 ×2; 83605; 83735; 84443; 84484; 85025 ×2; 85610; 85730; 81003; 71046; G0378 ×2

== ENCOUNTER → 2021-02-03 | Outpatient (CLI) | payer BC ==
[2021-02-03 14:51] LABS: African American GFR (CKD) >90 (>60 ml/min/1.73 sqM); Blood Urea Nitrogen 20 mg/dL (9-20); Non-African American GFR(CKD) >90 (>60 ml/min/1.73 sqM)
--- NOTE | 2021-02-03 15:51 | CT ---
EXAMINATION TYPE: CT abdomen wo/w con DATE OF EXAM: 02/03/2021 COMPARISON: none HISTORY: Renal mass protocol, renal cyst CT DLP: 1958.50 mGycm CONTRAST: CT scan of the abdomen is performed with Oral Contrast and without and with IV Contrast, patient inje cted with 100 ml mL of Isovue 300. FINDINGS: LUNG BASES-: No visible nodule. No infiltrate. LIVER/GB: No calcified gallstones. No space occupying hepatic lesion. Biliary tree is of normal ca liber. PANCREAS: No inflammation. No distinct mass. SPLEEN: No splenic enlargement. No lesion seen. ADRENALS: No nodule. No thickening. KIDNEYS/BLADDER: No hydronephrosis. No nephrolithiasis. There is a 1.8cm cystic lesion mid pole le ft kidney with Hounsfield measurement of up to 21. Parapelvic cysts noted on the left. No solid mass es identified within either kidney. BOWEL: Normal appendix. Normal bowel caliber. No inflammation. GENITAL ORGANS: No gross abnormality. LYMPH NODES: No greater than 1cm abdominal or pelvic lymph nodes are appreciated. AORTA: No significant abnormality. OSSEOUS STRUCTURES: No significant abnormality is seen. OTHER: No significant additional abnormality is seen. IMPRESSION: 1. Left renal cyst. No suspicious mass is identified of either kidney.
== END | disposition home or self-care (01) ==
LOC: RADCTMAIN 14:01
PROVIDERS: ATTEND Urology
DX: N28.1 Cyst of kidney, acquired (principal)
CPT/HCPCS: 82565; 84520; 74170; 36415; Q9967

== ENCOUNTER 2022-04-28 08:23 | Day surgery (SDC) | payer BC ==
[~2022-04-28 08:23] MED LIST changes: -LACTATED RINGERS 1,000 ML IV ONE; +LIDOCAINE 1% (10MG/ML) FOR IV START INTRADERMA PRN; -LIDOCAINE 1% 20 ML VIAL (10MG/ML) FOR IV START INTRADERMA ONE; -PROPOFOL 10 MG/ML 20 ML VIAL IV ONE
[2022-04-28 09:07] VITALS: RESP 16; TEMP 98
[2022-04-28] MEDS ORDERED: PROPOFOL 10 MG/ML 20 ML VIAL IV ONE (09:37)
--- NOTE | 2022-04-28 09:58 | P.PCN ---
Date of Procedure: 04/28/22 Procedure(s) Performed: BRIEF HISTORY: Patient is a 76-year-old pleasant white male scheduled for an elective colonoscopy as a part of evaluation of prior history of colon polyps/screening for colon cancer. Last colonoscopy was 3 years ago PROCEDURE PERFORMED: Colonoscopy and biopsy. PREOPERATIVE DIAGNOSIS: Screening for colon cancer/history of colon polyps. IV sedation per Anesthesia. PROCEDURE: After informed consent was obtained, the patient, was brought into the endoscopy unit. IV sedation was administered by Anesthesia under continuous monitoring. Digital rectal examination was normal. Initially the Olympus CF-160 flexible video colonoscope was then inserted in the rectum, gradually advanced into the cecum without any difficulty. Careful examination was performed as the scope was gradually being withdrawn. Ileocecal valve and the appendiceal orifice were visualized and appeared normal. Prep was excellent. Mucosa of the cecum, ascending colon, transverse colon, descending colon, sigmoid colon, and rectum appeared normal. In the distal rectum there was a 3-4 mm sessile polyp removed by cold biopsy. At her left sided diverticulosis seen. Retroflexion was performed in the rectum and no lesions were seen. The patient tolerated the procedure well. IMPRESSION: 3-4 mm sessile rectal polyp status post cold biopsy Scattered left-sided diverticulosis RECOMMENDATIONS: Findings of this examination were discussed with the patient as well as his family. He was advised to follow with the biopsy results. If the biopsy results and no malignancy can have a repeat colonoscopy in 5 years..
[2022-04-28 10:39] VITALS: BP 141/79; PULSE 64
== END 2022-04-28 10:56 | disposition home or self-care (01) ==
LOC: ORWHC2ENDO 08:23
PROVIDERS: ATTEND Internal Medicine Gastroenterology
DX: Z12.11 Encounter for screening for malignant neoplasm of colon (principal); K62.1 Rectal polyp; K57.30 Diverticulosis of large intestine without perforation or abscess without bleeding; I10 Essential (primary) hypertension; E78.5 Hyperlipidemia, unspecified; I25.10 Atherosclerotic heart disease of native coronary artery without angina pectoris; M19.90 Unspecified osteoarthritis, unspecified site; Z88.0 Allergy status to penicillin; Z79.899 Other long term (current) drug therapy
CPT/HCPCS: 88305; 45380; J2704

== ENCOUNTER 2023-04-29 21:47 | Observation (INO) | payer BC, MEDICARE ==
--- NOTE | 2023-04-29 22:13 | ED ---
Arrhythmia/Palpitations HPI - General Chief Complaint: Arrhythmia/Palpitations Stated Complaint: AFib, Chest Pressure Time Seen by Provider: 04/29/23 22:08 Source: patient, RN notes reviewed, old records reviewed Mode of arrival: ambulatory Limitations: no limitations - History of Present Illness Initial Comments: This is a 77-year-old male the ER today. Presents today for evaluation regards to abnormal heart rate with symptoms. Patient has not been feeling well lightheaded dizzy short of breath especially with exertion. No syncopal event no current chest pain but is noticed heart rate be low in the 30s as well as increase in the 130s, patient does have atrial fibrillation and does take metoprolol Complaint: "skipped beats", palpitations, irregular heart beat (bradycardia), atrial fibrillation -: days(s) Arrhythmia History: atrial fibrillation Associated Symptoms: shortness of breath, near-syncope, anxiety Treatments Prior to Arrival: other (0) - Related Data Home Medications Medication Instructions Recorded Confirmed Atorvastatin Calcium [Lipitor] 10 mg PO HS 07/22/16 04/29/23 Multivitamins, Thera [Multivitamin 1 tab PO DAILY 07/08/19 04/29/23 (formulary)] [place]-3 Fatty Acids/Fish Oil [Fish 2 cap PO DAILY 07/08/19 04/29/23 Oil 1,000 mg Softgel] Ascorbic Acid [Vitamin C] 1,000 mg PO DAILY 12/26/20 04/29/23 Metoprolol Tartrate 25 mg PO DAILY 04/24/22 04/29/23 Losartan [Cozaar] 50 mg PO DAILY 04/29/23 04/29/23 Previous Rx's Medication Instructions Recorded Apixaban [Eliquis] 5 mg PO BID #60 tab 07/08/19 Allergies Allergy/AdvReac Type Severity Reaction Status Date / Time Penicillins Allergy Unknown Verified 04/29/23 22:51 Childhood Review of Systems ROS Statement: Those systems with pertinent positive or pertinent negative responses have been documented in the HPI. ROS Other: All systems not noted in ROS Statement are negative. Past Medical History Past Medical History: Atrial Fibrillation, Coronary Artery Disease (CAD), Hyperlipidemia, Hypertension, Osteoarthritis (OA), Sleep Apnea/CPAP/BIPAP Additional Past Medical History / Comment(s): denies heart diseease, , "internal hemorrhoid" arthritis in hands, uses appliance to hold jaw forward History of Any Multi-Drug Resistant Organisms: None Reported Past Surgical History: Heart Catheterization With Stent, Hernia Repair, Joint Replacement Additional Past Surgical History / Comment(s): ASD closure done at [facility], bilateral knee replacement, CRISSY, umbilical inguinal hernia repairs, esperanza cataracts removed. "plate put in my neck"(states no limitation in neck movement), Past Anesthesia/Blood Transfusion Reactions: Motion Sickness Additional Past Anesthesia/Blood Transfusion Reaction / Comment(s): Pt has motion sickness only on a boat which isn't moving. no blood transfusion Date of Last Stent Placement:: 2008 Past Psychological History: No Psychological Hx Reported Smoking Status: Former smoker Past Alcohol Use History: None Reported Past Drug Use History: None Reported - Past Family History Mother Family Medical History: Cancer Additional Family Medical History / Comment(s): Mother of ovarian cancer at the age of 43yrs. General Exam Limitations: no limitations General appearance: alert, in no apparent distress, anxious Head exam: Present: atraumatic, normocephalic, normal inspection Eye exam: Present: normal appearance, PERRL, EOMI. Absent: scleral icterus, conjunctival injection, periorbital swelling ENT exam: Present: normal exam, mucous membranes moist Neck exam: Present: normal inspection. Absent: tenderness, meningismus, lymphadenopathy Respiratory exam: Present: normal lung sounds bilaterally. Absent: respiratory distress, wheezes, rales, rhonchi, stridor Cardiovascular Exam: Present: bradycardia, tachycardia, irregular rhythm, normal heart sounds. Absent: systolic murmur, diastolic murmur, rubs, gallop, clicks GI/Abdominal exam: Present: soft, normal bowel sounds. Absent: distended, tenderness, guarding, rebound, rigid Extremities exam: Present: normal inspection, full ROM, normal capillary refill. Absent: tenderness, pedal edema, joint swelling, calf tenderness Back exam: Present: normal inspection Neurological exam: Present: alert, oriented X3, CN II-XII intact Psychiatric exam: Present: normal affect, normal mood Skin exam: Present: warm, dry, intact, normal color. Absent: rash Course Vital Signs 04/29/23 04/29/23 22:02 23:05 Temperature 98.8 F Pulse Rate 43 L 56 L Respiratory 20 18 Rate Blood Pressure 144/63 141/57 O2 Sat by Pulse 95 97 Oximetry - Reevaluation(s) Reevaluation #1: 04/30/23 00:39 Medical record is reviewed Reevaluation #2: 04/30/23 00:39 patient symptoms are unchanged Reevaluation #3: 04/30/23 00:40 Informed results and questions answered Reevaluation #4: 04/30/23 00:40 Was pt. sent in by a medical professional or institution (, PA, IT SALES EXECUTIVE, urgent care, hospital, or residential...) When possible be specific @ -no Did you speak to anyone other than the patient for history (EMS, parent, family, police, friend...)? What history was obtained from this source @ -no Did you review nursing and triage notes (agree or disagree)? Why? @ -agree Are old charts reviewed (outside hosp., previous admission, EMS record, old EKG, old radiological studies, urgent care reports/EKG's, residential records)? Re port findings @ -yes Differential Diagnosis (chest pain, altered mental status, abdominal pain women, abdominal pain men, vaginal bleeding, weakness, fever, dyspnea, syncope, headache, dizziness, GI bleed, back pain, seizure, CVA, palpatations, mental health, musculoskeletal)? @ -prior EKG interpreted by me (3pts min.). @ -yes X-rays interpreted by me (1pt min.). @ -yes CT interpreted by me (1pt min.). @ -no U/S interpreted by me (1pt. min.). @ -no What testing was considered but not performed or refused? (CT, X-rays, U/S, labs)? Why? @ -none What meds were considered but not given or refused? Why? @ -none Did you discuss the management of the patient with other professionals (prof nasreen i.e. , TAN, IT SALES EXECUTIVE, lab, RT, psych nurse, social science teacher, drying machine tender, teacher, fundraising officer, major case detective)? Give summary @ -no Was smoking cessation discussed for >3mins.? @ -no Was critical care preformed (if so, how long)? @ -no Were there social determinants of health that impacted care today? How? (Homelessness, low income, unemployed, alcoholism, drug addiction, transportation, low edu. Level, literacy, decrease access to med. care, fpc, rehab)? @ -none Was there de-escalation of care discussed even if they declined (Discuss DNR or withdrawal of care, Hospice)? DNR status @ -no What co-morbidities impacted this encounter? (DM, HTN, Smoking, COPD, CAD, Cancer, CVA, ARF, Chemo, Hep., AIDS, mental health diagnosis, sleep apnea, morbid obesity)? @ -none Was patient admitted / discharged? Hospital course, mention meds given and route, prescriptions, significant lab abnormalities, going to OR and other pertinent info. @ - Undiagnosed new problem with uncertain prognosis? @ -no Drug Therapy requiring intensive monitoring for toxicity (Heparin, Nitro, Insulin, Cardizem)? @ -no Were any procedures done? @ -no Diagnosis/symptom? @ - Acute, or Chronic, or Acute on Chronic? @ -Acute Uncomplicated (without systemic symptoms) or Complicated (systemic symptoms)? @ -Complicated Side effects of treatment? @ -no Exacerbation, Progression, or Severe Exacerbation? @ -exacerbation Poses a threat to life or bodily function? How? (Chest pain, [place], [place], pneumonia, PE, COPD, DKA, ARF, appy, cholecystitis, CVA, Diverticulitis, Homicidal, Suicidal, threat to staff... and all critical care pts) @ -yes Reevaluation #5: 04/30/23 00:40 Differential Palpitations Ventricular arrhythmias, atrial arrhythmias, myocardial infarction, anemia, thyrotoxicosis, electrolyte imbalance, hypokalemia, pulmonary embolism, pulmonary disease, drugs, alcohol, anxiety, stress.... This is not meant to be an all-inclusive list. EKG Findings - EKG Comments: EKG Findings:: EKG is sinus bradycardia 57 CA 125 QRS 120 QTc 450 - EKG Results: EKG: interpreted by ERMD Medical Decision Making - Medical Decision Making 77 male [facility] department for evaluation of significant changes in his heart rate at home. Patient has had significantly low heart rates in the 30s and 40s as w ell as tachycardia to the 120s and 130s, patient does have symptoms of near- syncope in symptoms with these change in heart rate, patient be admitted for cardiology, history of underlying nature fibrillation - Lab Data Result diagrams: 04/29/23 22:16 04/29/23 22:16 Lab Results 04/29/23 04/29/23 04/29/23 Range/Units 22:16 22:16 22:16 WBC 10.3 (3.8-10.6) k/uL RBC 4.91 (4.30-5.90) m/uL Hgb 15.5 (13.0-17.5) gm/dL Hct 44.5 (39.0-53.0) % MCV 90.7 (80.0-100.0) fL MCH 31.5 (25.0-35.0) pg MCHC 34.7 (31.0-37.0) g/dL RDW 12.9 (11.5-15.5) % Plt Count 153 (150-450) k/uL MPV 7.6 Neutrophils % 56 % Lymphocytes % 32 % Monocytes % 7 % Eosinophils % 2 % Basophils % 1 % Neutrophils # 5.8 (1.3-7.7) k/uL Lymphocytes # 3.3 (1.0-4.8) k/uL Monocytes # 0.7 (0-1.0) k/uL Eosinophils # 0.2 (0-0.7) k/uL Basophils # 0.1 (0-0.2) k/uL PT 10.8 (10.0-12.5) sec INR 1.0 (<1.2) APTT 24.3 (22.0-30.0) sec Sodium 139 (137-145) mmol/L Potassium 4.3 (3.5-5.1) mmol/L Chloride 104 (98-107) mmol/L Carbon Dioxide 24 (22-30) mmol/L Anion Gap 11 mmol/L BUN 32 H (9-20) mg/dL Creatinine 1.23 (0.66-1.25) mg/dL Est GFR (CKD-EPI)AfAm 66 (>60 ml/min/1.73 sqM) Est GFR (CKD-EPI)NonAf 57 (>60 ml/min/1.73 sqM) Glucose 94 (74-99) mg/dL Calcium 9.4 (8.4-10.2) mg/dL Phosphorus 4.5 (2.5-4.5) mg/dL Magnesium 2.1 (1.6-2.3) mg/dL Total Bilirubin 0.6 (0.2-1.3) mg/dL AST 29 (17-59) U/L ALT 24 (4-49) U/L Alkaline Phosphatase 74 (38-126) U/L Troponin I (0.000-0.034) ng/mL NT-Pro-B Natriuret Pep 109 pg/mL Total Protein 7.0 (6.3-8.2) g/dL Albumin 4.3 (3.5-5.0) g/dL TSH 2.420 (0.465-4.680) mIU/L 04/29/23 Range/Units 22:16 WBC (3.8-10.6) k/uL RBC (4.30-5.90) m/uL Hgb (13.0-17.5) gm/dL Hct (39.0-53.0) % MCV (80.0-100.0) fL MCH (25.0-35.0) pg MCHC (31.0-37.0) g/dL RDW (11.5-15.5) % Plt Count (150-450) k/uL MPV Neutrophils % % Lymphocytes % % Monocytes % % Eosinophils % % Basophils % % Neutrophils # (1.3-7.7) k/uL Lymphocytes # (1.0-4.8) k/uL Monocytes # (0-1.0) k/uL Eosinophils # (0-0.7) k/uL Basophils # (0-0.2) k/uL PT (10.0-12.5) sec INR (<1.2) APTT (22.0-30.0) sec Sodium (137-145) mmol/L Potassium (3.5-5.1) mmol/L Chloride (98-107) mmol/L Carbon Dioxide (22-30) mmol/L Anion Gap mmol/L BUN (9-20) mg/dL Creatinine (0.66-1.25) mg/dL Est GFR (CKD-EPI)AfAm (>60 ml/min/1.73 sqM) Est GFR (CKD-EPI)NonAf (>60 ml/min/1.73 sqM) Glucose (74-99) mg/dL Calcium (8.4-10.2) mg/dL Phosphorus (2.5-4.5) mg/dL Magnesium (1.6-2.3) mg/dL Total Bilirubin (0.2-1.3) mg/dL AST (17-59) U/L ALT (4-49) U/L Alkaline Phosphatase (38-126) U/L Troponin I <0.012 (0.000-0.034) ng/mL NT-Pro-B Natriuret Pep pg/mL Total Protein (6.3-8.2) g/dL Albumin (3.5-5.0) g/dL TSH (0.465-4.680) mIU/L - EKG Data -: EKG Interpreted by [facility] - Radiology Data Radiology results: report reviewed (Chest x-rays negative for acute disease here), image reviewed Disposition Clinical Impression: Atrial fibrillation, Bradycardia, Near syncope, Tachycardia, Palpitations Disposition: ADMITTED IP TO THIS HOSP Condition: Good Is patient prescribed a controlled substance at d/c from ED?: No Referrals: Fabiana Arora MD [Primary Care Provider] - 1-2 days Time of Disposition: 00:30
[2023-04-29 22:51] LABS: Basophils # (A) 0.1 k/uL (0-0.2); Basophils % (A) 1 %; Eosinophils # (A) 0.2 k/uL (0-0.7); Eosinophils % (A) 2 %; HCT 44.5 % (39.0-53.0); HGB 15.5 gm/dL (13.0-17.5); Lymphocytes # (A) 3.3 k/uL (1.0-4.8); Lymphocytes % (A) 32 %; MCH 31.5 pg (25.0-35.0); MCHC 34.7 g/dL (31.0-37.0); MCV 90.7 fL (80.0-100.0); Mean Platelet Volume 7.6; Monocytes # (A) 0.7 k/uL (0-1.0); Monocytes % (A) 7 %; Neutrophils # (A) 5.8 k/uL (1.3-7.7); Neutrophils % (A) 56 %; Platelet Count 153 k/uL (150-450); RBC 4.91 m/uL (4.30-5.90); RDW 12.9 % (11.5-15.5); WBC 10.3 k/uL (3.8-10.6)
[2023-04-29 23:01] LABS: ALT 24 U/L (4-49); AST 29 U/L (17-59); African American GFR (CKD) 66 (>60 ml/min/1.73 sqM); Albumin 4.3 g/dL (3.5-5.0); Alkaline Phosphatase 74 U/L (38-126); Anion Gap 11 mmol/L; Blood Urea Nitrogen 32 mg/dL (9-20); Calcium 9.4 mg/dL (8.4-10.2); Carbon Dioxide 24 mmol/L (22-30); Chloride 104 mmol/L (98-107); Glucose 94 mg/dL (74-99); Magnesium 2.1 mg/dL (1.6-2.3); Non-African American GFR(CKD) 57 (>60 ml/min/1.73 sqM); Phosphorus 4.5 mg/dL (2.5-4.5); Potassium 4.3 mmol/L (3.5-5.1); Sodium 139 mmol/L (137-145); Total Bilirubin 0.6 mg/dL (0.2-1.3)
[2023-04-29 23:10] LABS: NT-Pro-B-Type Natriuretic Pept 109 pg/mL
--- NOTE | 2023-04-29 23:39 | XR ---
EXAM: XR Chest, 1 View CLINICAL HISTORY: ITS.REASON XR Reason: sob TECHNIQUE: Frontal view of the chest. COMPARISON: No relevant prior studies available. FINDINGS: Lungs: Unremarkable. No consolidation. Pleural space: Unremarkable. No pneumothorax. Heart: Unremarkable. No cardiomegaly. Mediastinum: Unremarkable. Normal mediastinal contour. Bones/joints: Unremarkable. No acute fracture. IMPRESSION: No consolidation.
[2023-04-30 00:11] LABS: Partial Thromboplastin Time 24.3 sec (22.0-30.0); Prothrombin Time 10.8 sec (10.0-12.5)
[2023-04-30] MEDS ORDERED: ONDANSETRON 4 MG/2 ML VIAL IVP PRN (00:37)
[2023-04-30] MEDS ORDERED: NALOXONE 0.4 MG/ML 1 ML VIAL IV PRN (00:37)
[2023-04-30] MEDS ORDERED: MORPHINE SULFATE 4 MG/ML SYRINGE IV PRN (00:37)
[2023-04-30] MEDS: SODIUM CHLORIDE 0.9% 1,000 ML IV SCH ×2 (01:36→18:13)
--- NOTE | 2023-04-30 10:09 | P.CRDCN ---
History of Present Illness History of present illness: HISTORY OF PRESENT ILLNESS: This is a 77-year-old male with a past medical history significant for paroxysmal atrial fibrillation, hypertension, hyperlipidemia, percutaneous closure of ASD, and coronary artery disease with previous PCI. Patient follows in the office with Dr. Small. We have been asked to see the patient in consultation for bradycardia and tachycardia. Patient examined at the bedside. Patient states yesterday he was feeling "terrible" yesterday. He is unable to elaborate on his symptoms. He reports having some chest pressure yesterday but no chest pain. He reports having a little bit lightheaded. He denies any episodes of syncope. He states that he was checking his vitals at home frequently and noticed his heart rate was down into the 40s and as high as the 120s. The patient did have an event monitor recently that was ordered by his PCP for 2 weeks revealing mostly sinus mechanism. Episodes of atrial fibrillation with a moderate ventricular rate. There was also a one 7 beat run of wide QRS tachycardia probably nonsustained VT without symptoms caught on auto detected. There were no significant arrhythmias when patient activated. Paroxysmal atrial fibrillation and nonsustained VT were discovered only on auto detected. Evidence of paroxysmal atrial fibrillation and one episode of nonsustained VT without symptoms. Telemetry this morning reveals a heart rate in the 50s with frequent PACs. * EKG reveals sinus mechanism with PACs * Chest xray negative for acute process. * Laboratory data: Troponin negative 2. ProBNP 109. TSH 2.420. * Current home cardiac medications include metoprolol tartrate 25 mg daily, losartan 50 mg daily, atorvastatin 10 mg at night, and Eliquis 5 mg twice a day * Most recent echocardiogram obtained in October 2021 reveals ejection fraction 50%, small area of inferior basal hypokinesia, mild to moderate pulmonary hypertension, percutaneous PFO closure device noted, moderate tricuspid regurgitation. * Cardiac catheterization history: April 2013 with no significant CAD. LAD was widely patent. Patient previously had stenting to the mid LAD in 2008 REVIEW OF SYSTEMS: At the time of my exam: CONSTITUTIONAL: Denies fever or chills. HEENT: Denies blurred vision, vision changes, or eye pain. Denies hemoptysis CARDIOVASCULAR: Denies chest pain. Denies orthopnea. Denies PND. Denies palpitations RESPIRATORY: Denies shortness of breath. GASTROINTESTINAL: Denies abdominal pain. Denies nausea or vomiting. HEMATOLOGIC: Denies bleeding disorders. GENITOURINARY: Denies any blood in urine. SKIN: Denies pruitis. Denies rash. PHYSICAL EXAM: VITAL SIGNS: Reviewed. GENERAL: Well-developed in no acute distress. HEENT: Head is normocephalic. Pupils are equal, round. Sclerae anicteric. Mucous membranes of the mouth are moist. Neck supple. No JVD or thyromegaly LUNGS: Respirations even and unlabored. Lungs essentially clear to auscultation bilaterally. HEART: Regular rate and rhythm. S1 and S2 heard. ABDOMEN: Soft. Nondistended. Nontender. EXTREMITIES: Normal range of motion. No clubbing or cyanosis. Peripheral pulses intact. No lower extremity edema NEUROLOGIC: Awake and alert. Oriented x 3. ASSESSMENT: Lightheadedness Sinus mechanism with PACs Paroxysmal atrial fibrillation Coronary artery disease with previous stenting of the LAD History of percutaneous closure of ASD, 2010, performed at [facility] PLAN: Change metoprolol to 12.5 mg twice a day Continue telemetry monitoring Anticipate discharge home this afternoon or tomorrow if patient is feeling well Patient to follow-up post discharge with Dr. Small Nurse practitioner note has been reviewed by physician. Signing provider agrees with the documented findings, assessment, and plan of care. Past Medical History Past Medical History: Atrial Fibrillation, Coronary Artery Disease (CAD), Hyperlipidemia, Hypertension, Osteoarthritis (OA), Sleep Apnea/CPAP/BIPAP Additional Past Medical History / Comment(s): denies heart diseease, , "internal hemorrhoid" arthritis in hands, uses appliance to hold jaw forward History of Any Multi-Drug Resistant Organisms: None Reported Past Surgical History: Heart Catheterization With Stent, Hernia Repair, Joint Replacement Additional Past Surgical History / Comment(s): ASD closure done at [facility], bilatera l knee replacement, CRISSY, umbilical inguinal hernia repairs, [place]anza cataracts removed. "plate put in my neck"(states no limitation in neck movement), Past Anesthesia/Blood Transfusion Reactions: Motion Sickness Additional Past Anesthesia/Blood Transfusion Reaction / Comment(s): Pt has motion sickness only on a boat which isn't moving. no blood transfusion Date of Last Stent Placement:: 2008 Past Psychological History: No Psychological Hx Reported Smoking Status: Former smoker Past Alcohol Use History: None Reported Past Drug Use History: None Reported - Past Family History Mother Family Medical History: Cancer Additional Family Medical History / Comment(s): Mother of ovarian cancer at the age of 43yrs. Medications and Allergies Home Medications Medication Instructions Recorded Confirmed Type Atorvastatin Calcium [Lipitor] 10 mg PO HS 07/22/16 04/29/23 History Apixaban [Eliquis] 5 mg PO BID #60 tab 07/08/19 04/29/23 Rx Multivitamins, Thera [Multivitamin 1 tab PO DAILY 07/08/19 04/29/23 History (formulary)] [place]-3 Fatty Acids/Fish Oil [Fish 2 cap PO DAILY 07/08/19 04/29/23 History Oil 1,000 mg Softgel] Ascorbic Acid [Vitamin C] 1,000 mg PO DAILY 12/26/20 04/29/23 History Metoprolol Tartrate 25 mg PO DAILY 04/24/22 04/29/23 History Losartan [Cozaar] 50 mg PO DAILY 04/29/23 04/29/23 History Allergies Allergy/AdvReac Type Severity Reaction Status Date / Time Penicillins Allergy Unknown Verified 04/29/23 22:51 Childhood Physical Exam Vitals: Vital Signs Temp Pulse Resp BP Pulse Ox 04/30/23 06:30 45 L 18 134/75 98 04/30/23 04:00 51 L 18 112/52 98 04/30/23 01:00 57 L 18 105/57 98 04/29/23 23:05 56 L 18 141/57 97 04/29/23 22:02 98.8 F 43 L 20 144/63 95 Intake and Output 04/29/23 04/30/23 04/30/23 22:59 06:59 14:59 Other: Weight 96.162 kg Results 04/29/23 22:16 04/29/23 22:16 Cardiac Enzymes 04/29/23 04/29/23 Range/Units 22:16 22:16 AST 29 (17-59) U/L Troponin I <0.012 (0.000-0.034) ng/mL Coagulation 04/29/23 Range/Units 22:16 PT 10.8 (10.0-12.5) sec APTT 24.3 (22.0-30.0) sec CBC 04/29/23 Range/Units 22:16 WBC 10.3 (3.8-10.6) k/uL RBC 4.91 (4.30-5.90) m/uL Hgb 15.5 (13.0-17.5) gm/dL Hct 44.5 (39.0-53.0) % Plt Count 153 (150-450) k/uL Comprehensive Metabolic Panel 04/29/23 Range/Units 22:16 Sodium 139 (137-145) mmol/L Potassium 4.3 (3.5-5.1) mmol/L Chloride 104 (98-107) mmol/L Carbon Dioxide 24 (22-30) mmol/L BUN 32 H (9-20) mg/dL Creatinine 1.23 (0.66-1.25) mg/dL Glucose 94 (74-99) mg/dL Calcium 9.4 (8.4-10.2) mg/dL AST 29 (17-59) U/L ALT 24 (4-49) U/L Alkaline Phosphatase 74 (38-126) U/L Total Protein 7.0 (6.3-8.2) g/dL Albumin 4.3 (3.5-5.0) g/dL Current Medications Generic Name Dose Route Start Last Admin Trade Name Freq PRN Reason Stop Dose Admin Sodium Chloride 1,000 mls @ 75 mls/hr 04/30/23 00:45 04/30/23 01:36 Saline 0.9% IV 75 mls/hr .[id number] OLENA Administration Morphine Sulfate 4 mg 04/30/23 00:37 Morphine Sulfate 4 Mg/Ml Syringe IV Q4HR PRN Severe Pain (Scale 7 to 10) Naloxone HCl 0.2 mg 04/30/23 00:37 Naloxone 0.4 Mg/Ml 1 Ml Vial IV Q2M PRN Opioid Reversal Ondansetron HCl 4 mg 04/30/23 00:37 Ondansetron 4 Mg/2 Ml Vial IVP Q8HR PRN Nausea And Vomiting Intake and Output 04/29/23 04/30/23 04/30/23 22:59 06:59 14:59 Other: Weight 96.162 kg 04/29/23 22:16 04/29/23 22:16
[2023-04-30] MEDS: APIXABAN 5 MG TAB PO SCH ×2 (10:32→21:13)
[2023-04-30] MEDS: LOSARTAN 50 MG TAB PO SCH (10:32)
[2023-04-30] MEDS: METOPROLOL TARTRATE 12.5 MG TAB PO SCH ×2 (10:32→21:13)
[2023-04-30] MEDS ORDERED: ATORVASTATIN 10 MG TAB PO SCH (21:00)
[2023-05-01] MEDS: SODIUM CHLORIDE 0.9% 1,000 ML IV SCH (06:51)
[2023-05-01 07:32] VITALS: BP 137/84; PULSE 50; RESP 16; TEMP 97.9
[2023-05-01] MEDS: APIXABAN 5 MG TAB PO SCH (08:22)
[2023-05-01] MEDS: METOPROLOL TARTRATE 12.5 MG TAB PO SCH (08:22)
[2023-05-01] MEDS: LOSARTAN 50 MG TAB PO SCH (08:22)
[2023-05-01 09:22] LABS: ALT 22 U/L (10-49); AST 19 U/L (14-35); Albumin 4.1 g/dL (3.8-4.9); Albumin/Globulin Ratio 1.78 Ratio (1.60-3.17); Alkaline Phosphatase 77 U/L (41-126); BUN/Creat Ratio 31.12 Ratio (12.00-20.00); Blood Urea Nitrogen 24.9 mg/dL (9.0-27.0); Calcium 9.1 mg/dL (8.7-10.3); Carbon Dioxide 23.9 mmol/L (21.6-31.8); Chloride 106 mmol/L (96-109); Globulin 2.3 g/dL (1.6-3.3); Glucose 100 mg/dL (70-110); Magnesium 2.2 mg/dL (1.5-2.4); Phosphorus 3.4 mg/dL (2.4-5.1); Potassium 4.3 mmol/L (3.5-5.5); Sodium 140 mmol/L (135-145); Total Bilirubin 0.8 mg/dL (0.3-1.2); Total Protein 6.4 g/dL (6.2-8.2)
[2023-05-01 10:20] LABS: Basophils # (A) 0.06 X 10*3/uL (0.00-0.10); Basophils % (A) 0.6 %; Eosinophils # (A) 0.23 X 10*3/uL (0.04-0.35); Eosinophils % (A) 2.4 %; HCT 45.5 % (39.6-50.0); HGB 15.4 g/dL (13.0-17.0); Lymphocytes # (A) 2.65 X 10*3/uL (0.90-5.00); Lymphocytes % (A) 27.5 %; MCHC 33.8 g/dL (32.0-37.0); MCV 91.5 FL (80.0-97.0); Monocytes # (A) 0.78 X 10*3/uL (0.20-1.00); Monocytes % (A) 8.1 %; NRBC Per 100 WBC 0 X 10*3/uL (0.00-0.01); Neutrophils # (A) 5.81 X 10*3/uL (1.80-7.70); Neutrophils % (A) 60.2 %; Platelet Count 177 X 10*3/uL (140-440); RBC 4.97 X 10*6/uL (4.40-5.60); WBC 9.65 X 10*3/uL (4.50-10.00)
--- NOTE | 2023-05-01 12:18 | P.PN ---
Subjective Progress Note Date: 05/01/23 This is a 77-year-old male with a past medical history significant for paroxysmal atrial fibrillation, hypertension, hyperlipidemia, percutaneous closure of ASD, and coronary artery disease with previous PCI. Patient follows in the office with Dr. Small. We have been asked to see the patient in c onsultation for bradycardia and tachycardia. He states he came to the hospital to fluctuations in his heart rates. He was feeling tired, unwell, somewhat lightheaded and his heart rates were fluctuating from 120s down into the 40s. The patient did have a 2 week event monitor recently that was ordered by his PCP revealing mostly sinus mechanism. Episodes of atrial fibrillation with a moderate ventricular rate. There was also one 7 beat run of wide QRS tachycardia probably nonsustained VT without symptoms caught on auto detected. There were no significant arrhythmias with patient activated events. Paroxysmal atrial fibrillation and nonsustained VT were discovered only on auto detect. E vidence of paroxysmal atrial fibrillation and one episode of nonsustained VT without symptoms. Telemetry reveals a heart rate in the 50s with frequent PACs. * EKG reveals sinus mechanism with PACs * Chest xray negative for acute process. * Laboratory data: Troponin negative 2. ProBNP 109. TSH 2.420. * Current home cardiac medications include metoprolol tartrate 25 mg daily, losartan 50 mg daily, atorvastatin 10 mg at night, and Eliquis 5 mg twice a day * Most recent echocardiogram obtained in October 2021 reveals ejection fraction 50%, small area of inferior basal hypokinesia, mild to moderate pulmonary hypertension, percutaneous PFO closure device noted, moderate tricuspid regurgitation. * Cardiac catheterization history: April 2013 with no significant CAD. LAD was widely patent. Patient previously had stenting to the mid LAD in 200805/01/23 Patient was seen and examined sitting up in a chair. He is overall feeling better. Telemetry continues to show sinus mechanism with frequent PACs. He is asymptomatic. Heart rates are running in the 50s to 60s according to telemetry. Objective - Vital Signs Vital signs: Vital Signs Temp 97.9 F 05/01/23 07:00 Pulse 50 L 05/01/23 07:00 Resp 16 05/01/23 07:00 BP 137/84 05/01/23 07:00 Pulse Ox 96 05/01/23 07:00 FiO2 Intake & Output 04/30/23 05/01/23 05/01/23 18:59 06:59 18:59 Intake Total 236 Balance 236 Weight 96.162 kg Intake: Oral 236 Other: # Voids 3 2 # Bowel Movements 1 - Exam GENERAL: Well-developed in no acute distress. HEENT: Head is normocephalic. Pupils are equal, round. Sclerae anicteric. Mucous membranes of the mouth are moist. Neck supple. No JVD or thyromegaly LUNGS: Respirations even and unlabored. Lungs clear to auscultation bilaterally. HEART: Regular rate and rhythm. S1 and S2 heard. ABDOMEN: Soft. Nondistended. Nontender. EXTREMITIES: Normal range of motion. No clubbing or cyanosis. Peripheral pulses intact. No lower extremity edema NEUROLOGIC: Awake and alert. Oriented x 3. - Labs CBC & Chem 7: 05/01/23 05:47 05/01/23 05:47 Assessment and Plan Assessment: Lightheadedness Sinus mechanism with PACs Paroxysmal atrial fibrillation Coronary artery disease with previous stenting of the LAD History of percutaneous closure of ASD, 2010, performed at [facility] Plan: From cardiology's perspective medications were reviewed and we will continue the same. At this time patient is stable for discharge home. He'll follow-up in the office with Dr. TITUS Small. CLINICAL NURSING COORDINATOR note has been reviewed, I agree with a documented findings and plan of care. Patient was seen and examined.
--- NOTE | 2023-05-01 21:44 | P.HPIM ---
History of Present Illness H&P Date: 04/30/23 Chief Complaint: Chest pain/palpitations 77-year-old male the ER today. Presents today for evaluation regards to abnormal heart rate with symptoms. Patient has not been feeling well lightheaded dizzy short of breath especially with exertion. No syncopal event no current chest pain but is noticed heart rate be low in the 30s as well as increase in the 130s, patient does have atrial fibrillation and does take metoprolol * EKG reveals sinus mechanism with PACs * Chest xray negative for acute process. * Laboratory data: Troponin negative 2. ProBNP 109. TSH 2.420. * Current home cardiac medications include metoprolol tartrate 25 mg daily, losartan 50 mg daily, atorvastatin 10 mg at night, and Eliquis 5 mg twice a day * Most recent echocardiogram obtained in October 2021 reveals ejection fraction 50%, small area of inferior basal hypokinesia, mild to moderate pulmonary h ypertension, percutaneous PFO closure device noted, moderate tricuspid regurgitation. * Cardiac catheterization history: April 2013 with no significant CAD. LAD was widely patent. Patient previously had stenting to the mid LAD in 2008 Review of Systems REVIEW OF SYSTEMS: CONSTITUTIONAL: No fever, no malaise, no fatigue. HEENT: No recent visual problems or hearing problems. Denied any sore throat. CARDIOVASCULAR: No chest pain, orthopnea, PND, no palpitations, no syncope. PULMONARY: No shortness of breath, no cough, no hemoptysis. GASTROINTESTINAL: No diarrhea, no nausea, no vomiting, no abdominal pain. NEUROLOGICAL: No headaches, no weakness, no numbness. HEMATOLOGICAL: Denies any bleeding or petechiae. GENITOURINARY: Denies any burning micturition, frequency, or urgency. MUSCULOSKELETAL/RHEUMATOLOGICAL: Denies any joint pain, swelling, or any muscle pain. ENDOCRINE: Denies any polyuria or polydipsia. The rest of the 14-point review of systems is negative. Past Medical History Past Medical History: Atrial Fibrillation, Coronary Artery Disease (CAD), Hyperlipidemia, Hypertension, Osteoarthritis (OA), Sleep Apnea/CPAP/BIPAP Additional Past Medical History / Comment(s): denies heart diseease, , "internal hemorrhoid" arthritis in hands, uses appliance to hold jaw forward History of Any Multi-Drug Resistant Organisms: None Reported Past Surgical History: Heart Catheterization With Stent, Hernia Repair, Joint Replacement Additional Past Surgical History / Comment(s): ASD closure done at [facility], bilateral knee replacement, CRISSY, umbilical inguinal hernia repairs, [place] cataracts removed. "plate put in my neck"(states no limitation in neck movement), Past Anesthesia/Blood Transfusion Reactions: Motion Sickness Additional Past Anesthesia/Blood Transfusion Reaction / Comment(s): Pt has motion sickness only on a boat which isn't moving. no blood transfusion Date of Last Stent Placement:: 2008 Past Psychological History: No Psychological Hx Reported Additional Psychological History / Comment(s): . Smoking Status: Former smoker Past Alcohol Use History: None Reported Additional Past Alcohol Use History / Comment(s): Pt started smoking in 1965 and quit in 1975. Past Drug Use History: None Reported - Past Family History Mother Family Medical History: Cancer Additional Family Medical History / Comment(s): Mother of ovarian cancer at the age of 43yrs. Medications and Allergies Home Medications Medication Instructions Recorded Confirmed Type Atorvastatin Calcium [Lipitor] 10 mg PO HS 07/22/16 04/29/23 History Apixaban [Eliquis] 5 mg PO BID #60 tab 07/08/19 04/29/23 Rx Multivitamins, Thera [Multivitamin 1 tab PO DAILY 07/08/19 04/29/23 History (formulary)] [place]-3 Fatty Acids/Fish Oil [Fish 2 cap PO DAILY 07/08/19 04/29/23 History Oil 1,000 mg Softgel] Ascorbic Acid [Vitamin C] 1,000 mg PO DAILY 12/26/20 04/29/23 History Losartan [Cozaar] 50 mg PO DAILY 04/29/23 04/29/23 History Metoprolol Tartrate [Lopressor] 12.5 mg PO BID 30 Days #60 tab 05/01/23 Rx Allergies Allergy/AdvReac Type Severity Reaction Status Date / Time Penicillins Allergy Unknown Verified 04/29/23 22:51 Childhood Physical Exam Vitals: Vital Signs Temp Pulse Pulse Resp BP BP Pulse Ox 04/30/23 13:08 97.7 F 45 L 14 130/79 97 04/30/23 08:36 50 L 04/30/23 08:00 50 L 04/30/23 07:25 97.4 F L 47 L 14 158/79 99 04/30/23 06:30 45 L 18 134/75 98 04/30/23 04:00 51 L 18 112/52 98 04/30/23 01:00 57 L 18 105/57 98 04/29/23 23:05 56 L 18 141/57 97 04/29/23 22:02 98.8 F 43 L 20 144/63 95 Intake and Output 04/29/23 04/30/23 04/30/23 22:59 06:59 14:59 Other: # Voids 3 # Bowel Movements 1 Weight 96.162 kg 96.162 kg General appearance: alert, in no apparent distress, anxious Head exam: Present: atraumatic, normocephalic, normal inspection Neck exam: Present: normal inspection. Absent: tenderness, meningismus, lymphadenopathy Respiratory exam: Present: normal lung sounds bilaterally. Absent: respiratory distress, wheezes, rales, rhonchi, stridor Cardiovascular Exam: Present: bradycardia, tachycardia, irregular rhythm, normal heart sounds. Absent: systolic murmur, diastolic murmur, rubs, gallop, clicks GI/Abdominal exam: Present: soft, normal bowel sounds. Absent: distended, tenderness, guarding, rebound, rigid Extremities exam: Present: normal inspection, full ROM, normal capillary refill. Absent: tenderness, pedal edema, joint swelling, calf tenderness Neurological exam: Present: alert, oriented X3, CN II-XII intact Skin exam: Present: warm, dry, intact, normal color. Absent: rash Results CBC & Chem 7: 05/01/23 05:47 05/01/23 05:47 Labs: Abnormal Lab Results - Last 24 Hours (Table) 04/29/23 Range/Units 22:16 BUN 32 H (9-20) mg/dL Thrombosis Risk Factor Assmnt - Choose All That Apply Any of the Below Risk Factors Present?: Yes Each Factor Represents 1 point: Obesity (BMI >25) Other Risk Factors: Yes Each Risk Factor Represents 3 Points: Age 75 years or older Other congenital or acquired thrombophilia - If yes, enter type in comment: No Thrombosis Risk Factor Assessment Total Risk Factor Score: 4 Thrombosis Risk Factor Assessment Level: Moderate Risk Assessment and Plan Assessment: 1. Chest pain with tachybradycardia syndrome 2. Paroxysmal atrial fibrillation 3. Lightheadedness; symptomatic tachycardia/bradycardia 4. Coronary artery disease; history of stenting to LAD 5. Hypertension 6. Obesity -- Patient has been evaluated by cardiology recommending to change metoprolol to 12.5 mg twice a day; no further workup is recommended at this time - Patient is to remain on telemetry for another 24 hours
--- NOTE | 2023-05-01 21:45 | P.DS ---
Providers Date of admission: 04/30/23 00:37 Expected date of discharge: 05/01/23 Attending physician: Manish Simpson Consults: 04/30/23 00:37 Consult Physician Routine Consulting Provider: Mathew Centeno Consult Reason/Comments: afib,soila Do you want consulting provider notified?: Yes Primary care physician: [facility] Course: 77-year-old male with a past medical history significant for paroxysmal atrial fibrillation, hypertension, hyperlipidemia, percutaneous closure of ASD, and coronary artery disease with previous PCI. Patient follows in the office with Dr. Small. We have been asked to see the patient in consultation for bradycardia and tachycardia. Patient examined at the bedside. Patient states yesterday he was feeling "terrible" yesterday. He is unable to elaborate on his symptoms. He reports having some chest pressure yesterday but no chest pain. He reports having a little bit lightheaded. He denies any episodes of syncope. He states that he was checking his vitals at home frequently and noticed his heart rate was down into the 40s and as high as the 120s. The patient did have an event monitor recently that was ordered by his PCP for 2 weeks revealing mostly sinus mechanism. Episodes of atrial fibrillation with a moderate ventricular rate. There was also a one 7 beat run of wide QRS tachycardia probably nonsustained VT without symptoms caught on auto detected. There were no significant arrhythmias when patient activated. Paroxysmal atrial fibrillation and nonsustained VT were discovered only on auto detected. Evidence of paroxysmal atrial fibrillation and one episode of nonsustained VT without symptoms. Telemetry this morning reveals a heart rate in the 50s with frequent PACs. * EKG reveals sinus mechanism with PACs * Chest xray negative for acute process. * Laboratory data: Troponin negative 2. ProBNP 109. TSH 2.420. * Current home cardiac medications include metoprolol tartrate 25 mg daily, losartan 50 mg daily, atorvastatin 10 mg at night, and Eliquis 5 mg twice a day * Most recent echocardiogram obtained in October 2021 reveals ejection fraction 50%, small area of inferior basal hypokinesia, mild to moderate pulmonary hypertension, percutaneous PFO closure device noted, moderate tricuspid regurgitation. * Cardiac catheterization history: April 2013 with no significant CAD. LAD was widely patent. Patient previously had stenting to the mid LAD in 2008 ASSESSMENT: Lightheadedness Sinus mechanism with PACs Paroxysmal atrial fibrillation Coronary artery disease with previous stenting of the LAD History of percutaneous closure of ASD, 2010, performed at [facility] PLAN: Change metoprolol to 12.5 mg twice a day Continue telemetry monitoring Anticipate discharge home this afternoon or tomorrow if patient is feeling well Patient to follow-up post discharge with Dr. Small -- Patient remained stable; will be discharged in a stable condition with outpatient follow-up with cardiology Patient Condition at Discharge: Good Plan - Discharge Summary Discharge Rx Participant: No New Discharge Prescriptions: New Metoprolol Tartrate [Lopressor] 12.5 mg PO BID 30 Days #60 tab Continue Atorvastatin Calcium [Lipitor] 10 mg PO HS [place]-3 Fatty Acids/Fish Oil [Fish Oil 1,000 mg Softgel] 2 cap PO DAILY Multivitamins, Thera [Multivitamin (formulary)] 1 tab PO DAILY Apixaban [Eliquis] 5 mg PO BID #60 tab Ascorbic Acid [Vitamin C] 1,000 mg PO DAILY Losartan [Cozaar] 50 mg PO DAILY Discontinued Metoprolol Tartrate 25 mg PO DAILY Discharge Medication List Atorvastatin Calcium [Lipitor] 10 mg PO HS 07/22/16 [History] Apixaban [Eliquis] 5 mg PO BID #60 tab 07/08/19 [Rx] Multivitamins, Thera [Multivitamin (formulary)] 1 tab PO DAILY 07/08/19 [History] [place]-3 Fatty Acids/Fish Oil [Fish Oil 1,000 mg Softgel] 2 cap PO DAILY 07/08/19 [History] Ascorbic Acid [Vitamin C] 1,000 mg PO DAILY 12/26/20 [History] Losartan [Cozaar] 50 mg PO DAILY 04/29/23 [History] Metoprolol Tartrate [Lopressor] 12.5 mg PO BID 30 Days #60 tab 05/01/23 [Rx] Follow up Appointment(s)/Referral(s): Merlyn Small MD [STAFF PHYSICIAN] - 05/11/23 3:30 pm Fabiana Arora MD [Primary Care Provider] - 1-2 days Discharge Disposition: HOME SELF-CARE
== END 2023-05-01 14:03 | disposition home or self-care (01) ==
LOC: EC 21:47 → 6NMEDSUR 04-30 00:37
PROVIDERS: ADMIT Hospitalist; ATTEND Hospitalist
DX: R07.89 Other chest pain (principal); I49.5 Sick sinus syndrome; I48.0 Paroxysmal atrial fibrillation; R42 Dizziness and giddiness; I10 Essential (primary) hypertension; I25.10 Atherosclerotic heart disease of native coronary artery without angina pectoris; E78.5 Hyperlipidemia, unspecified; G47.30 Sleep apnea, unspecified; E66.9 Obesity, unspecified; Z68.36 Body mass index [BMI] 36.0-36.9, adult; Z87.74 Personal history of (corrected) congenital malformations of heart and circulatory system; Z87.891 Personal history of nicotine dependence; Z95.5 Presence of coronary angioplasty implant and graft; Z79.01 Long term (current) use of anticoagulants; Z79.899 Other long term (current) drug therapy; Z88.0 Allergy status to penicillin
CPT/HCPCS: 99285; 36415; 93005; 83880; 80053 ×2; 83735 ×2; 84100 ×2; 84443; 84484 ×2; 85025 ×2; 85610; 85730; 71045; G0378 ×2

== ENCOUNTER → 2024-02-14 | Outpatient (CLI) | payer MEDICARE ==
[2024-02-14 15:04] LABS: Basophils # (A) 0.04 X 10*3/uL (0.00-0.10); Basophils % (A) 0.5 %; Eosinophils # (A) 0.19 X 10*3/uL (0.04-0.35); Eosinophils % (A) 2.5 %; HCT 45.4 % (39.6-50.0); HGB 15.1 g/dL (13.0-17.0); Lymphocytes % (A) 36.4 %; MCH 30.8 pg (27.0-32.0); MCHC 33.3 g/dL (32.0-37.0); MCV 92.7 FL (80.0-97.0); Mean Platelet Volume 10.2 FL (9.5-12.2); Monocytes # (A) 0.76 X 10*3/uL (0.20-1.00); Monocytes % (A) 9.9 %; NRBC Per 100 WBC 0 X 10*3/uL (0.00-0.01); Neutrophils # (A) 3.87 X 10*3/uL (1.80-7.70); Neutrophils % (A) 50.2 %; Platelet Count 186 X 10*3/uL (140-440); RDW 13.1 % (11.5-14.5)
[2024-02-14 15:43] LABS: ALT 21 U/L (10-49); AST 22 U/L (14-35); Albumin 4.2 g/dL (3.8-4.9); Albumin/Globulin Ratio 1.75 Ratio (1.60-3.17); Alkaline Phosphatase 81 U/L (41-126); BUN/Creat Ratio 28.71 Ratio (12.00-20.00); Blood Urea Nitrogen 20.1 mg/dL (9.0-27.0); Carbon Dioxide 24.5 mmol/L (21.6-31.8); Chloride 107 mmol/L (96-109); Chol/HDL Ratio 4.36 Ratio; Globulin 2.4 g/dL (1.6-3.3); Glucose 115 mg/dL (70-110); LDL Cholesterol,Calculated 61.5 mg/dL (0.0-131.0); Potassium 4.4 mmol/L (3.5-5.5); Sodium 142 mmol/L (135-145); Total Bilirubin 0.8 mg/dL (0.3-1.2); Total Protein 6.6 g/dL (6.2-8.2)
== END | disposition home or self-care (01) ==
LOC: LABWHC1 10:02
PROVIDERS: ATTEND Family Medicine
DX: I48.0 Paroxysmal atrial fibrillation (principal); E78.5 Hyperlipidemia, unspecified
CPT/HCPCS: 36415; 80053; 80061; 84443; 85025

== ENCOUNTER → 2024-09-16 | Outpatient (CLI) | payer MEDICARE ==
--- NOTE | 2024-09-16 23:05 | MR ---
EXAMINATION TYPE: MR Prostate wo/w con DATE OF EXAM: 09/16/2024 COMPARISON: None. INDICATION: Elevated PSA PSA: 4.5 ng/ml in June 2024 Recent Biopsy and Date: none Pathology Report (If Applicable): n/a TECHNIQUE: Examination was performed using a 3T MRI without an endorectal coil. Multiparametric imaging was perf ormed with T2 mutliplanar sequences, axial diffusion weighted imaging and dynamic contrast enhanced i maging, utilizing 10 mL intravenous Gadobutrol gadolinium contrast. FINDINGS: PROSTATE VOLUME: 5.2 cm SI x 3.5 cm AP x 5.3 cm LR Vol= 50.5 cc PSA DENSITY: 0.09 ng/ml/cc Enlarged prostate consistent with BPH is present. Peripheral zone has linear areas of slightly dimini shed signal on ADC mapping. Transitional zone shows a few small nodules bilaterally. No marked areas of diminished T2 signal. Site 1: Assessment Category:4 1.3 cm lesion of marked diminished signal on ADC mapping and marked increased signal on DWI in the an terior lateral left peripheral zone mid gland level ADC image 112 with focal postcontrast enhancement Sigmoid colonic diverticulosis is present. No destructive osseous lesions. Fat-containing left inguin al hernia is noted. IMPRESSION: Enlarged prostate consistent with BPH. Suspicious round lesion in the left anterolateral peripheral zone at mid gland level is identified. I maging guided targeted biopsy advised. Highest Assessment Category: 4 MRI Stage: T0 N0 M0 based on review of pelvic images. False negative rates for MRI range from 5-20% depending on risk profile. Assessment Categories: 1 ? Very low (clinically significant cancer is highly unlikely to be present) 2 ? Low (clinically significant cancer is unlikely to be present) 3 ? Intermediate (the presence of clinically significant cancer is equivocal) 4 ? High (clinically significant cancer is likely to be present) 5 ? Very high (clinically significant cancer is highly likely to be present) [facility], , 09/16/2024 11:03 PM
== END | disposition home or self-care (01) ==
LOC: RADMRIMAIN 07:32
PROVIDERS: ATTEND Urology
DX: R97.20 Elevated prostate specific antigen [PSA] (principal); N40.0 Benign prostatic hyperplasia without lower urinary tract symptoms
CPT/HCPCS: 72197; A9585

== ENCOUNTER → 2024-11-09 | Outpatient (CLI) | payer MEDICARE ==
--- NOTE | 2024-11-09 10:33 | PE ---
EXAMINATION TYPE: PET CT fusion skull to thigh DATE OF EXAM: 11/09/2024 CLINICAL INDICATION:Male, 79 years old with history of C61 PROSTATE CANCER; TECHNIQUE: Following the intravenous administration of 6 mCi of Ga-68 Illuccix (PSMA), whole body i mages are performed from the skull base to the Mid thigh. Images are reviewed on the computer in the coronal, axial, and sagittal planes. Reconstructed rotating images are created on independent works tation and reviewed on the computer. A non-contrast CT is performed in conjunction with the PET sca n. CT DLP: 1651 mGycm, Automated exposure control for dose reduction was used. COMPARISON: CT 02/03/2021, PET/CT None, MRI: 09/16/2024. FINDINGS: Mediastinal SUV mean is 1.7. Hepatic parenchyma SUV mean is 4.4. SKULL BASE AND NECK: No suspicious radiotracer activity. CHEST, MEDIASTINUM, AND HILAR REGION: No suspicious radiotracer activity. ABDOMEN AND PELVIS: Suspicious uptake identified; examples include: Radiotracer uptake seen within the left anterior lateral peripheral zone mid gland of the prostate gl and as seen on MRI correlating with suspicious lesion. Max SUV 40.0. No lymphadenopathy identified. MUSCULOSKELETAL STRUCTURES: No suspicious radiotracer activity. OTHER CT: Bilateral fat-containing inguinal hernias. Mild degeneration changes of the hips.r prostato megaly measuring up to 5.6 cm. Scattered colonic diverticula. Fat-containing umbilical hernia. Athero sclerosis of the arterial vasculature. Tricuspid valve repair changes. Severe coronary artery atheros clerosis. Mild aortic valve consultations. Right shoulder arthroplasty appears intact. Fixation of th e spine appears intact. Post patient at the carotid bifurcations. 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 No evidence for metastatic disease at this time. [facility], , 11/09/2024 10:31 AM
== END | disposition home or self-care (01) ==
LOC: RADPETMAIN 07:04
PROVIDERS: ATTEND Urology
DX: C61 Malignant neoplasm of prostate (principal)
CPT/HCPCS: 78815; A9596